=== PATIENT | male | born 1975 | race Caucasian/White ===

== ENCOUNTER → 2020-04-14 10:02 | Outpatient (BNVA) | payer OTHER, SELFPAY | PROVIDERS: PCP Nurse Practitioner Family; Visit Provider Orthopaedic Surgery | DX: S83.242A Other tear of medial meniscus, current injury, left knee, initial encounter (principal) | CPT/HCPCS: 99202 ==

== ENCOUNTER 2020-04-22 08:31 | Outpatient (REF) | payer OTHER, SELFPAY ==
--- NOTE | 2020-04-22 08:36 | MR_ITS ---
EXAMINATION: MR KNEE WITHOUT CONTRAST, LEFT CLINICAL INFORMATION: Tear medial meniscus, injury. COMPARISON: X-ray of left knee 01/2012. TECHNIQUE: MRI of the knee without contrast was performed using routine sequences on a high-field scanner. FINDINGS: MENISCI: Medial Meniscus: Intact. Lateral Meniscus: Intact. LIGAMENTS: Cruciate: Intact. Collateral: MCL: There is mild thickening and abnormal signal involving the proximal portion of ligament extending from the femoral attachment to the joint line indicative of a low-grade partial tear. EXTENSOR MECHANISM: Intact. ARTICULAR CARTILAGE/BONE: Patellofemoral Compartment: Normal. Medial Compartment: Normal. Lateral Compartment: There is a nondepressed/minimally depressed subchondral/osteochondral impaction fracture involving the posterior rim of the lateral plateau. See sagittal image 9 series 3. The fracture measures approximately 5 mm AP and 1.5 cm transverse. There is surrounding edema. JOINT FLUID AND BURSAE: Normal. MR/MR knee LT wo con IMPRESSION: Partial tear of the proximal medial collateral ligament likely acute or subacute. Minimally depressed/nondepressed subchondral/osteochondral impaction fracture involving the posterior rim of the lateral plateau.
== END 2020-04-22 08:32 | disposition home or self-care (01) ==
LOC: HO.MRI 08:31
PROVIDERS: PCP Nurse Practitioner Family; Visit Provider Orthopaedic Surgery
DX: S83.242A Other tear of medial meniscus, current injury, left knee, initial encounter (principal)
CPT/HCPCS: 73721

== ENCOUNTER → 2020-04-29 13:53 | Outpatient (BNVA) | payer OTHER, SELFPAY | PROVIDERS: PCP Nurse Practitioner Family; Visit Provider Orthopaedic Surgery | DX: M25.562 Pain in left knee (principal) | CPT/HCPCS: 20610; 99212; J1040 ==

== ENCOUNTER → 2020-06-22 15:31 | Outpatient (BNVA) | payer OTHER, SELFPAY | PROVIDERS: PCP Nurse Practitioner Family; Visit Provider Internal Medicine Cardiovascular Disease | DX: I25.5 Ischemic cardiomyopathy (principal); R07.9 Chest pain, unspecified; R06.00 Dyspnea, unspecified | CPT/HCPCS: 93005; 99212 ==

== ENCOUNTER → 2020-06-26 13:10 | Outpatient (REF) | payer OTHER, SELFPAY ==
--- NOTE | 2020-06-26 13:13 | CA_ITS ---
Transthoracic Echocardiogram Patient (Last, First, Middle): Chaz Hartmann C Gender: Male Date of : 1975 Age: 45 Procedure Date: 06/26/2020 Procedure Type: Transthoracic Echocardiogram Location: OP Height: 170.18 cm Weight: 100.7 kg BSA: 2.11 m2 Heart Rate: bpm BP: 136 / 80 mmHg Manager [employer]: Referring MD: Francisco Frederick MD Symptoms: I25.5 - Ischemic cardiomyopathy Study Quality: Technically Difficult ECG Rhythm: Sinus Conclusions: - The left ventricular systolic function is moderately decreased. The visually estimated ejection fraction is between 30-35%. - The apical inferior, apical septum, and mid anteroseptal segments are akinetic. 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 - No obvious valvular pathology seen on this study. Findings Procedure Information Contrast agent, definity, is being given per protocol without apparent complications. Left Ventricle Normal left ventricular cavity size. There is mildly increased left ventricular wall thickness. The left ventricular systolic function is moderately decreased. The visually estimated ejection fraction is between 30 35%. There is evidence of regional wall motion abnormalities. Diastolic function is normal for age. No thrombus noted. Wall Motion Rest Echo Findings The apical inferior, apical septum, and mid anteroseptal segments are akinetic. 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 Right Ventricle Mildly increased right ventricular cavity size. There is normal right ventricular systolic function. Atria The left atrium is mildly dilated. The right atrium is normal in size. Aortic Valve There is a normal trileaflet aortic valve. There is no aortic valve stenosis. There is no aortic valve regurgitation. Mitral Valve The mitral valve appears normal. There is trace mitral valve regurgitation. There is no mitral valve stenosis. Pulmonic Valve The pulmonic valve was not well visualized. Tricuspid Valve Normal tricuspid valve structure. There is trace tricuspid valve regurgitation. The pulmonary artery systolic pressure is normal. Great Vessels The aortic annulus, sinuses of valsalva, and asc aorta are normal in size. Venous The inferior vena cava is mildly dilated and collapses greater than 50% with inspiration. Pericardium/Pleural There is no evidence of pericardial effusion. Prior Study Comparison Changes noted compared to prior study dated: 07/24/2018. See comments on apex. Recommendations, Care & Conclusions No obvious valvular pathology seen on this study. Measurements 2D Linear Measurements IVSd: 1.34 0.6-0.9/0.6-1.0 cm LVIDd: 5.08 3.9-5.3/4.2-5.9 cm LVIDd Index: 2.41 2.4-3.2/2.2-3.1 cm/m2 LVIDs: 4.16 2.0-3.6 cm LVPWd: 1.31 0.7-1.1 cm Ao Root: 3.50 2.1-3.5 cm LA Diam: 4.20 2.7-3.8/3.0-4.0 cm LAIDs Index: 1.99 1.5-2.3 cm/m2 LV Mass: 344.03 67-162/88-224 g LV Mass Index: 163.05 43-95/49-115 g/m2 LVOT Diam: 2.40 3.0+(-)1.3 cm 2D Systolic Function EF 4C: 35.40 >55% EF 2C: 17.70 >55% Mitral Valve MV Pk E: 0.84 MV PK A: 0.62 MV Decel Time: 123.00 E/A: 1.40 E'Lateral: 12.50 E'Medial: 10.30 E/E' Med: 8.20 E/E' Lat: 6.80 PHT: 36.00 MVA PHT: 6.11 Decel [place]: 6.85 Aortic Valve AoV Pk Jameel: 1.25 AoV Mn Jameel: 0.96 AoV VTI: 0.32 AoV Pk Grad: 6.00 Aov Mn Grad: 4.00 JOLYNN Cont.VTI: 2.85 LVOT LVOT Pk Jameel: 0.88 LVOT Mn Jameel: 0.66 LVOT VTI: 0.20 LVOT Pk Grad: 3.00 LVOT Mn Grad: 2.00 LVOT Diam: 2.40 LVOT Area: 4.52 Diastolic Function MV Pk E: 0.84 MV Pk A: 0.62 E/A: 1.40 E'Medial: 10.30 E/E' Med: 8.20 E' Laterial: 12.50 E/E' Lat: 6.80 Tricuspid Valve TR Pk Jameel: 1.93 TR Pk Grad: 15.00 RA Press: 8.00 RVSP: 23.00 Great Vessels Aorta Ao Root-2D: 3.50 2.0-3.7 cm Ao Asc: 3.10 2.1-3.4 cm Pulmonary Valve PV Pk Jameel: 1.18 Peak PV Grad: 6.00 Updated in Other Vendor System with Status of Final Ajay Wiseman MD electronically signed on 06/28/2020 9:38:35 AM with status of Final
== END ==
LOC: HO.CARD 13:10
PROVIDERS: Visit Provider Internal Medicine Cardiovascular Disease
DX: I25.5 Ischemic cardiomyopathy (principal)
CPT/HCPCS: 93306; Q9957

== ENCOUNTER 2020-06-30 11:25 | Outpatient (REF) | payer OTHER, SELFPAY ==
[2020-06-30 13:20] LABS: Prothrombin Time 12.2 SEC (10.8-13.0)
[2020-06-30 13:24] LABS: Hematocrit 42.1 % (42-52); Hemoglobin 14.5 g/dl (14.0-18.0); Mean Corpuscular HGB Conc 34.4 g/dl (31.0-36.0); Mean Corpuscular Volume 92.9 fL (80-98); Platelet Count 227 X10*3/uL (160-400); Red Blood Count 4.53 X10*6/uL (4.60-5.80); Red Cell Distribution Width 12.6 % (11.0-16.0); White Blood Count 6.9 X10*3/uL (4.8-10.8)
[2020-06-30 14:29] LABS: Anion Gap 12 (12-20); Blood Urea Nitrogen 12 mg/dL (9-16); Carbon Dioxide 27 mmol/L (22-29); Chloride 107 mmol/L (96-108); Estimated Glomerular Filt Rate > 60; Glucose Random 86 mg/dL (60-115); Potassium 4.6 mmol/L (3.3-5.1); Sodium 141 mmol/L (135-145)
== END 2020-06-30 11:26 | disposition home or self-care (01) ==
LOC: HO.LAB 11:25
PROVIDERS: Visit Provider Internal Medicine Cardiovascular Disease
DX: R07.9 Chest pain, unspecified (principal)
CPT/HCPCS: 36415; 80048; 85027; 85610

== ENCOUNTER → 2020-07-22 14:16 | Outpatient (BNVA) | payer OTHER, SELFPAY | PROVIDERS: Visit Provider Internal Medicine Cardiovascular Disease | DX: I25.5 Ischemic cardiomyopathy (principal); R06.00 Dyspnea, unspecified | CPT/HCPCS: 99212 ==

== ENCOUNTER 2020-09-10 07:22 | Day surgery (SDC) | payer OTHER, SELFPAY ==
[2020-09-02 14:58] LABS: MANUAL DIFF FLAG NO
[2020-09-02 15:04] LABS: Basophils Percent Auto 0.6 % (0-2); Eosinophils Absolute Auto 0.2 X10*3/uL (0.0-0.4); Eosinophils Percent Auto 2.7 % (0-4); Hematocrit 40.2 % (42-52); Hemoglobin 13.8 g/dl (14.0-18.0); Imm Gran Abs Auto 0.02 X10*3/uL (0.00-0.03); Imm Gran Pct Auto 0.3 % (0.0-0.4); Lymphocytes Absolute Auto 2.5 X10*3/uL (1.2-4.9); Lymphocytes Percent Auto 36.1 % (20-40); Mean Corpuscular HGB Conc 34.3 g/dl (31.0-36.0); Mean Corpuscular Hemoglobin 32.3 pg (27.0-33.0); Mean Corpuscular Volume 94.1 fL (80-98); Mean Platelet Volume 10.2 fL (9.4-12.4); Monocytes Absolute Auto 0.6 X10*3/uL (0.1-1.2); Neutrophils Absolute Auto 3.7 X10*3/uL (2.0-8.3); Neutrophils Percent Auto 52.3 % (45-73); Platelet Count 246 X10*3/uL (160-400); Red Blood Count 4.27 X10*6/uL (4.60-5.80); Red Cell Distribution Width 12.9 % (11.0-16.0)
[2020-09-02 15:09] LABS: Prothrombin Time 11.6 SEC (10.8-13.0)
[2020-09-02 15:26] LABS: Anion Gap 13 (12-20); Blood Urea Nitrogen 14 mg/dL (9-16); Carbon Dioxide 24 mmol/L (22-29); Chloride 107 mmol/L (96-108); Estimated Glomerular Filt Rate > 60; Glucose Random 99 mg/dL (60-115); Potassium 4.6 mmol/L (3.3-5.1); Sodium 139 mmol/L (135-145)
[2020-09-02 18:56] VITALS: BMI 34.7
--- NOTE | 2020-09-09 11:03 | HO.ANESPROP2 ---
Documented by User: Ariana David 09/09/20 11:06 HPI - Anesthesia Eval Consult details Narrative: 45yo M for Insertion Cardiac Defibrillator PMFSH Active Problems Active Problems: All Active Problems (Updated 09/02/20 @ 19:00 by Jalyn Walton RN) Left knee pain (Acute) Ischemic cardiomyopathy (Acute) Chest pain (Acute) Dyspnea (Acute) Tobacco abuse (Acute) Past Medical History Medical History Anterior wall myocardial infarction CAD (coronary artery disease) HTN (hypertension) Ischemic cardiomyopathy NSVT (nonsustained ventricular tachycardia) Tobacco abuse Surgical History Surgical History H/O heart artery stent H/O hernia repair H/O knee surgery Social History Social History (Updated 06/22/20 @ 15:41 by VALENTINA Wynn) Alcohol intake: former Smoking Status: Current every day smoker Cigarettes Per Day: 10 Years Smoked: 30 Smoked in Last 30 Days: Yes Patient Interested in Nicotine Replacement: Yes (currently on) Use of substances other than those prescribed or required for medical reasons: No Are you DNR?: No Advance Directives: Yes Advance Directives Information Provided: Yes Advance Directives on File: No Advance Directives Date on File: 05/26/17 Current occupational status: employed Current occupation: [employer] - [employer] Allergies Allergy/AdvReac Type Severity Reaction Status Date / Time No Known Allergies Allergy Verified 09/10/20 07:47 Home Medications Medication Instructions Recorded Confirmed Last Taken Type aspirin 81 mg tablet,delayed 81 mg PO DAILY 04/14/20 09/02/20 Unknown History release methadone 10 mg/5 mL oral solution 10 mg PO DAILY 06/22/20 09/02/20 Unknown History Exam Exam Date and Time: September 09, 2020 1103 Height,Weight and Vital Signs: Height 5 ft 7 in Weight 100.698 kg Pertinent Lab Results Pertinent Lab Results: Laboratory Tests 09/02/20 09/02/20 09/02/20 14:23 14:23 14:23 WBC 7.0 RBC 4.27 L Hgb 13.8 L Hct 40.2 L MCV 94.1 MCH 32.3 MCHC 34.3 RDW 12.9 Plt Count 246 MPV 10.2 Immature Gran % (Auto) 0.3 Neut % (Auto) 52.3 Lymph % (Auto) 36.1 [place] % (Auto) 8.0 Eos % (Auto) 2.7 Baso % (Auto) 0.6 Lymph # (Auto) 2.5 [place] # (Auto) 0.6 Eos # (Auto) 0.2 Baso # (Auto) 0.0 Abs Immat Gran (auto) 0.02 Absolute Neuts (auto) 3.7 Absolute Nucleated RBC 0.000 Nucleated RBC % (auto) 0.0 PT 11.6 INR 1.0 Sodium 139 Potassium 4.6 Chloride 107 Carbon Dioxide 24 Anion Gap 13 BUN 14 Creatinine 0.79 Estim Creat Clear Calc TNP Estimated GFR > 60 Random Glucose 99 Calcium 9.0 Narrative Narrative: ECHO 06/2020 Conclusions: - The left ventricular systolic function is moderately decreased. The visually estimated ejection fraction is between 30-35%. - The apical inferior, apical septum, and mid anteroseptal segments are akinetic. 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 - No obvious valvular pathology seen on this study. EKG 06/2020 Normal sinus rhythm 97 beats per minute, anteroseptal infarct (old), normal axis, QTC 436 milliseconds Cath 06/2020 diagnostic cardiac catheterization which showed patent stent in the left anterior descending artery and no other significant disease involving the left circumflex or right coronary artery. Assessment and Plan Assessment Anesthesia Assessment: Chart Reviewed Documented by User: Oumar Christopher MD 09/10/20 07:51 [facility] Past Medical History Medical History Anterior wall myocardial infarction CAD (coronary artery disease) HTN (hypertension) Ischemic cardiomyopathy NSVT (nonsustained ventricular tachycardia) Tobacco abuse Surgical History Surgical History H/O heart artery stent H/O hernia repair H/O knee surgery Social History Social History (Updated 06/22/20 @ 15:41 by CYNTHIA Wynn Alcohol intake: former Smoking Status: Current every day smoker Cigarettes Per Day: 10 Years Smoked: 30 Smoked in Last 30 Days: Yes Patient Interested in Nicotine Replacement: Yes (currently on) Use of substances other than those prescribed or required for medical reasons: No Are you DNR?: No Advance Directives: Yes Advance Directives Information Provided: Yes Advance Directives on File: No Advance Directives Date on File: 05/26/17 Current occupational status: employed Current occupation: [employer] - Right [employer] Meds Allergies Allergy/AdvReac Type Severity Reaction Status Date / Time No Known Allergies Allergy Verified 09/10/20 07:47 Home Medications Medication Instructions Recorded Confirmed Last Taken Type aspirin 81 mg tablet,delayed 81 mg PO DAILY 04/14/20 09/02/20 Unknown History release methadone 10 mg/5 mL oral solution 10 mg PO DAILY 06/22/20 09/02/20 Unknown History Exam Airway Mallampati Class: I TM Dist: >3cm Neck ROM: Full Loose/Missing/Broken Teeth: No Lungs: NL Assessment and Plan Assessment Anesthesia Assessment: Anesthesia Plan Discussed and Chart Reviewed Final Anesthetic Review NPO: Yes ASA Class: III Final Preanesthetic Review: No Changes in Pt Med Stat, Meds/Allgs Chart Reviewed, Consent Obtained/Reviewed and Anes Risks/Benef Reviewed Patient Risk: High Procedure Risk: Intermediate Anesthetic Plan Anesthetic Plan: MAC: Disposition: Standard PACU
[2020-09-10] VITALS (12 sets, daily range): BP systolic 96–132; BP diastolic 49–86; PULSE 54–71; RESP 16–20; TEMP 36.3–37; O2SAT 91–99
--- NOTE | ~2020-09-10 | FL_ITS ---
EXAMINATION: XR FLUOROSCOPY WITH IMAGES CLINICAL INFORMATION: Defibrillator. COMPARISON: CTA chest dated 01/31/2018 TECHNIQUE: Fluoroscopy performed by Dr. Almazan Instrum. Fluoroscopy time: 15.2 minutes DAP: 72.9 mGy-cm2 Images: 56 FINDINGS: Intraoperative fluoroscopic radiographs demonstrate interval placement of a left-sided AICD. FL/FL guidance in OR IMPRESSION: Intraoperative fluoroscopic radiographs.
--- NOTE | ~2020-09-10 | XR_ITS ---
EXAMINATION: XR CHEST CLINICAL INFORMATION: Post ICD COMPARISON: 09/10/2020 TECHNIQUE: Frontal view of the chest was obtained. FINDINGS: Left-sided AICD lead tip overlies the right ventricle. Lung volumes are symmetric. No focal consolidation is seen. No evidence of pneumothorax, pleural effusion, or pulmonary edema. The cardiomediastinal contour is unremarkable. No acute osseous findings are seen. XR/XR chest 1V IMPRESSION: No acute cardiopulmonary findings.
--- NOTE | ~2020-09-10 | XR_ITS ---
EXAMINATION: XR CHEST CLINICAL INFORMATION: Rule out pneumothorax after ICD COMPARISON: Chest 01/01/2014 TECHNIQUE: Frontal view of the chest was obtained. FINDINGS: The lungs are well-expanded and clear. The heart size and pulmonary vascularity is normal. There is solitary new pacer electrode in the right ventricle. There is no pneumothorax. No gross bony abnormality seen. XR/XR chest 1V IMPRESSION: Unremarkable chest exam. There is a new right pacer electrode with its tip in right ventricle.
[2020-09-10] MEDS: Lactated Ringers 1,000 ML 50 ML IV (08:20)
--- NOTE | 2020-09-10 12:21 | PM.OP ---
Brief Operative Note Date of Service: 09/10/20 Pre-op diagnosis: Ischemic cardiomyopathy with EF 30-35%, class III HF Post-op diagnosis: same Procedure: single chamber ICD implanation, venogram Implants: [employer] ICD Surgeon: Jose Bhatia MD Estimated blood loss (mL): 50 Condition: stable Disposition: PACU
--- NOTE | 2020-09-10 12:26 | P.OP_ITS ---
Operative Note Operative Note Date of Service: 09/10/20 Narrative: Narrative: Procedure: Single chamber ICD for primary prevention, venogram Indication: ischemic cardiomyopathy with systolic heart failure and EF 30-35%, class III HF Procedure The risks, benefits, complications, alternatives and expected outcomes were discussed with the patient. Patient was prepped and draped in the usual sterile fashion. After the antibiotic was infused, lidocaine was infiltrated medial to the deltopectoral groove. An incision was made. The incision was extended to the prepectoral fascia using blunt dissection. I attempted axillary access but given unable to get access, a venogram was performed that confirmed the axillary vein was slightly higher and access was obtained. The lead was positioned in the RV. I noted the high or mid septum had low R waves of 2-3 mV. An apical septal position was finally obtained with optimal numbers. Appropriate sensing and thresholds were obtained. No diaphragmatic pacing occurred at high outputs. The lead was sutured to the muscle using 3 ethibond ties. Lead measurements were rechecked. A left prepectoral pocket was fashioned. The lead was attached to the generator. The system was placed in the pocket. The ICD was checked under fluoroscopy with adrquate slack noted noted. The pin of the lead was beyond the set screws. Hemostasis was verified. The pocket was closed with 3 layers. Steristrips and tegaderm were applied [employer] Device: ICD [place] VR [id number] RV lead: Durata 7122Q/65 cm Pacing impedance 430 ohms HV impedance 82 ohms Threshold 1.25 V at 0.4 ms R waves >12 mV Programmed VVI 40 BPM VF therapy >200 BPM ATP during charging, 36J, 40Jx5 Plan CXR today and tomorrow to r/o pneumothorax Ancef x 2 doses No HSQ or lovenox Ok to give home meds including aspirin, plavix, methadone Device company will interrogate device tomorrow and cardiology will see patient before discharge Followup on September 29 at 10:20 AM for wound check at [address] [place] [address] at [facility] Jose Bhatia [facility] Electrophysiology Attending DC instructions This can be copied into his DC instructions [facility] Dr. Jose Bhatia Pacemaker/ICD Instructions Site Care: Leave dressing on for 5 days. Do not shower or get the area wet for 5 days. Once you remove the dressing, there will be steri-strips in place. Do not peel off, they will fall off. Hand washing is a must when caring for your incision to prevent infections. Avoid touching your incision or using lotions, creams, or ointments until it is healed (2-4 weeks). Limit the movement of your arm on the same side as the pacemaker but do not stop moving it. Avoid stretching that arm over your head or shoulder-level or lift or carry anything heavier than 5 pounds with the left arm for 6 weeks Avoid golfing, swimming, tennis, bowling, shoveling snow or mowing the lawn for 6 weeks Follow-up instructions: If you do not already have a scheduled follow-up appointment, please call [phone] for the [place] office or [phone] for the [place] office Please keep the identification card for the device with you, it will be useful when you go through security during flights. Please plug in your home monitor and leave it at your bedside. Call device company if you need assistance plugging in the monitor. Please tell all your healthcare providers you have a pacemaker, especially before procedures or before a MRI. Call your doctor if you have any redness, swelling, pus from incision site, fever of 101 degrees. If you have any bleeding from the incision site, lie down and put pressure on the incision site for 30 minutes. If this does not resolve, please get transportation to the closest hospital but do not drive yourself
--- NOTE | 2020-09-10 13:34 | PM.IMHP ---
History of Present Illness Date of Service: 09/10/20 Chief Complaint: s/p ICD for ischemic CMP With a past medical history of anterior wall AL in the past and subsequent ischemic cardiomyopathy with a recent echocardiogram showing EF of 30-35% who presents to [facility] for scheduled ICD placement. He underwent a successful ICD placement and now will be observed overnight to ensure stability with cardiology follow-up tomorrow a.m. and device interrogation as well as a repeat chest x-ray to rule out any pneumothorax. Patient seen and examined in the PACU postoperatively. He reports some minor discomfort at the surgical site, with no other complaints. Chest pain or shortness of breath. Of note he does endorse that he is on chronic methadone and has taken his of methadone this a.m. Review of Systems Review of Systems: General - denies fevers or chills, denies weakness or fatigue HEENT -denies blurred vision, denies headache, denies sore throat Cardiovascular - denies chest pain or palpitations, denies edema Respiratory - denies shortness of breath, coughing, wheezing Gastrointestinal - denies abdominal pain, nausea, vomiting, diarrhea - denies flank pain, denies dysuria, denies frequency or urgency Musculoskeletal - denies back pain, denies hip pain, denies knee pain, denies shoulder pain Neurological - denies any focal weakness or numbness Skin, denies any bruising or redness Psychiatric - denies any suicidal ideation, hallucinations, homicidal ideation Endocrinology - denies intolerance to hot / cold temperatures [facility] Medical History (Updated 09/10/20 @ 13:39 by Williams Richardson MD) Anterior wall myocardial infarction CAD (coronary artery disease) HTN (hypertension) Ischemic cardiomyopathy NSVT (nonsustained ventricular tachycardia) Tobacco abuse Surgical History H/O heart artery stent H/O hernia repair H/O knee surgery Social History (Updated 06/22/20 @ 15:41 by VALENTINA Wynn) Alcohol intake: former Smoking Status: Current every day smoker Cigarettes Per Day: 10 Years Smoked: 30 Smoked in Last 30 Days: Yes Patient Interested in Nicotine Replacement: Yes (currently on) Use of substances other than those prescribed or required for medical reasons: No Are you DNR?: No Advance Directives: Yes Advance Directives Information Provided: Yes Advance Directives on File: No Advance Directives Date on File: 05/26/17 Current occupational status: employed Current occupation: [employer] - Right [employer] Meds Allergies Allergy/AdvReac Type Severity Reaction Status Date / Time No Known Allergies Allergy Verified 09/10/20 07:47 Active Medications: Current Medications Generic Name Dose Route Start Last Admin Trade Name Freq PRN Reason Stop Dose Admin Acetaminophen 650 mg 09/10/20 08:19 Acetaminophen 325 Mg Tablet PO ONCE PRN Pain, Mild (Pain Scale 1-3) Albuterol Sulfate 2.5 mg 09/10/20 07:40 Albuterol Sulfate (0.083%) 2.5 Mg/3 Ml Vial.Neb INHALE ONCE PRN Shortness of Breath/Wheezing Hydromorphone HCl 0.25 mg 09/10/20 08:19 Hydromorphone Hcl 0.5 Mg/0.5 Ml Syringe IVPUSH Q5M PRN Pain, Severe (Pain Scale 7-10) Lactated Ringer's 1,000 mls @ 50 mls/hr 09/10/20 07:45 09/10/20 08:20 Lr IV 50 mls/hr .Q20H SHARMAINE Administration Cefazolin Sodium/Dextrose 2 gm in 50 mls @ 100 mls/hr 09/10/20 17:00 Ancef IV 09/11/20 16:59 Q8H SHARMAINE Ondansetron HCl 4 mg 09/10/20 08:19 Ondansetron Hcl 4 Mg/2 Ml Vial IVPUSH ONCE PRN Nausea and Vomiting Oxycodone HCl 5 mg 09/10/20 08:19 Oxycodone Hcl Immed Release 5 Mg Tablet PO ONCE PRN Pain, Severe (Pain Scale 7-10) Sodium Chloride 3 ml 09/10/20 16:00 0.9 % Sodium Chloride Flush 3 Ml Syringe IVFLUSH [facility] Sodium Chloride 3 ml 09/10/20 16:00 0.9 % Sodium Chloride Flush 3 Ml Syringe IVFLUSH [facility] Home Medications Medication Instructions Recorded Confirmed Last Taken Type aspirin 81 mg tablet,delayed 81 mg PO DAILY 04/14/20 09/02/20 09/09/20 22:00 History release methadone 10 mg/5 mL oral solution 10 mg PO DAILY 06/22/20 09/02/20 09/10/20 05:30 History methadone [Methadone Intensol] 64 mg PO DAILY 09/10/20 09/10/20 09/10/20 History Physical Exam Vital Signs and Narrative: Vital Signs: Last Vital Signs Temp 97.4 F 09/10/20 11:57 Pulse 58 09/10/20 12:46 Resp 18 09/10/20 12:46 BP 96/49 L 09/10/20 12:46 Pulse Ox 98 09/10/20 12:46 Body Mass Index 34.7 Const: Other: General - denies fevers or chills, denies weakness or fatigue HEENT -denies blurred vision, denies headache, denies sore throat Cardiovascular - denies chest pain or palpitations, denies edema; left chest wall -- tegaderm in place Respiratory - denies shortness of breath, coughing, wheezing Gastrointestinal - denies abdominal pain, nausea, vomiting, diarrhea - denies flank pain, denies dysuria, denies frequency or urgency Musculoskeletal - denies back pain, denies hip pain, denies knee pain, denies shoulder pain Neurological - denies any focal weakness or numbness Skin, denies any bruising or redness Psychiatric - denies any suicidal ideation, hallucinations, homicidal ideation Endocrinology - denies intolerance to hot / cold temperatures Results Labs CBC and Chem 7: 09/02/20 14:23 09/02/20 14:23 Imaging Radiologist's Impressions: Impressions Chest X-Ray 09/10/20 12:20 IMPRESSION: Unremarkable chest exam. There is a new right pacer electrode with its tip in right ventricle. Assessment and Plan (1) Ischemic cardiomyopathy: Status: Acute This is a 45-year-old male who is being admitted to extended stay surgery after postop from a uncomplicated ICD placement for ischemic cardiomyopathy. 1. Status post ICD placement Repeat chest x-ray today without any signs of pneumothorax Will repeat chest x-ray tomorrow a.m. Surgical prophylaxis with Kefzol No pharmacological DVT pptx in light of recent procedure (per requested of performing physician) To be seen by Cardiology and interrogation company in the a.m. Above instructions discussed with manufacturing assistant Dr. Taylor 2. Ischemic cardiomyopathy with the EF of 30-35% 2a. status post anterior wall AL on asa/plavix/metoprolol/statin -- will continue 3. Chronic Opiate Dependence on methadone, will continue Full Code DVT pptx -- low risk, early ambulation
--- NOTE | 2020-09-10 16:10 | MHC.CM.PN ---
CM MET WITH PT WHO REPORTS HE LIVES AT HOME WITH HIS S/O AND 18 YO SON. HE REPORTS HE IS INDEPENDENT WITH ALL CARE AND MOBILITY AND HAS NO DME OR SERVICES. PT COMPLETED A NEW HCP TODAY NAMING HIS S/O, FAUSTINA SAUCEDA, HIS AGENT. PT CONFIRMS HIS PCP IS ALLEN SANCHEZ. CURRENT DC PLAN IS HOME WITH NO SERVICES PT WILL SELF ARRANGE TRANSPORT
[2020-09-10] MEDS: Sacubitril/Valsartan 24/26 1 TAB TABLET PO (19:58)
[2020-09-10] MEDS: Atorvastatin Calcium 80 MG TABLET PO (19:58)
[2020-09-10] MEDS: 0.9 % Sodium Chloride Flush 3 ML SYRINGE IVFLUSH (19:59)
[2020-09-11] MEDS: ceFAZolin Sodium/Dextrose,Iso 2 GM/50 ML PIGGYBACK IV ×2 (01:12→09:00)
[2020-09-11 04:00] VITALS: BP 110/57; PULSE 77; RESP 20; TEMP 36.9; O2SAT 96
[2020-09-11 07:29] VITALS: BP 115/68; PULSE 67; RESP 20; TEMP 36.8; O2SAT 95
[2020-09-11] MEDS: Nicotine 14 MG PATCH.TD24 TRANSDERMA (08:55)
[2020-09-11] MEDS: 0.9 % Sodium Chloride Flush 3 ML SYRINGE IVFLUSH (08:55)
[2020-09-11 08:57] VITALS: BP 132/75; PULSE 81
[2020-09-11] MEDS: Metoprolol Succinate ER 100 MG TAB.ER.24H PO (08:57)
[2020-09-11] MEDS: Clopidogrel Bisulfate 75 MG TABLET PO (08:58)
[2020-09-11] MEDS: Sacubitril/Valsartan 24/26 1 TAB TABLET PO (08:58)
[2020-09-11] MEDS: Aspirin Enteric Coated 81 MG TABLET.DR PO (08:58)
--- NOTE | 2020-09-11 09:38 | P.PNCA_ITS ---
Subjective Subjective Date of Service: 09/11/20 Principal diagnosis: Status post ICD Interval history: Patient has some discomfort at the site of the ICD. Overall otherwise doing well. No other cardiac symptoms. Chest x-ray is benign. ICD interrogation is okay Review of Systems Constitutional: Reports no additional constitutional complaints Cardiovascular: Reports no additional cardiovascular complaints Respiratory: Reports no additional respiratory complaints Gastrointestinal: Reports no additional gastrointestinal complaints Reports system reviewed and no additional complaints, except as documented Endocrine: Reports no additional endocrine complaints Physical Exam Vital Signs: Last Vital Signs Temp 98.2 F 09/11/20 07:29 Pulse 81 09/11/20 08:57 Resp 20 09/11/20 07:29 BP 132/75 09/11/20 08:57 Pulse Ox 95 09/11/20 07:29 Oxygen Flow Rate 97 09/10/20 16:08 Body Mass Index 34.7 Const General: cooperative, comfortable, no acute distress, well developed, alert and awake Nutritional Appearance: obese Orientation/consciousness: patient oriented x3 Neck Neck: Yes trachea midline, Yes supple and Yes no JVD Chest Chest palpation & inspection: other (ICD pocket with some puffiness but no significant hematoma. Mild tendernes) Resp Effort & Inspection: normal respiratory effort Auscultation: clear to auscultation bilaterally GI Auscultation: normal bowel sounds Skin General skin exam: no rashes or lesions noted Neuro General: patient oriented x3 Extrem General: Yes no clubbing, cyanosis or edema Psych Appearance: grossly normal Results Labs and Meds Result diagrams: 09/02/20 14:23 09/02/20 14:23 Imaging Radiologist's impression: Impressions Chest X-Ray 09/10/20 12:20 IMPRESSION: Unremarkable chest exam. There is a new right pacer electrode with its tip in right ventricle. Chest X-Ray 09/11/20 06:00 IMPRESSION: No acute cardiopulmonary findings. Progress Note: A&P Assessment and plan (1) ICD (implantable cardioverter-defibrillator) in place: Status: Acute Assessment and Plan: ICD in place, working well. Will follow up for wound check in 8 days and follow up in 6 weeks for device check. Patient was given instructions for wound care. (2) Ischemic cardiomyopathy: Status: Acute Assessment and Plan: Ischemic cardiomyopathy without symptoms. Continue current medications i ncluding Entresto and metoprolol. Continue dual antiplatelet therapy as before. He has no signs of congestive heart failure. Will follow up as outpatient. Thank you for allowing me to partake in his care Fall Risk Details Current Medications: Current Medications Generic Name Dose Route Start Last Admin Trade Name Raghav PRN Reason Stop Dose Admin Aspirin 81 mg 09/11/20 09:00 09/11/20 08:58 Aspirin Enteric Coated 81 Mg Tablet.Dr PO 81 mg DAILY SHARMAINE Administration Atorvastatin Calcium 80 mg 09/10/20 21:00 09/10/20 19:58 Atorvastatin Calcium 80 Mg Tablet PO 80 mg BEDTIME SHARMAINE Administration Clopidogrel Bisulfate 75 mg 09/11/20 09:00 09/11/20 08:58 Clopidogrel Bisulfate 75 Mg Tablet PO 75 mg DAILY SHARMAINE Administration Cefazolin Sodium/Dextrose 2 gm in 50 mls @ 100 mls/hr 09/10/20 17:00 09/11/20 09:00 Ancef IV 09/11/20 16:59 100 mls/hr Q8H SHARMAINE Administration Methadone HCl 60 mg 09/11/20 09:00 09/11/20 08:56 Methadone Hcl 1 Mg/0.1 Ml Oral.Conc PO 60 mg DAILY SHARMAINE Administration Metoprolol Succinate 100 mg 09/11/20 09:00 09/11/20 08:57 Metoprolol Succinate Er 100 Mg Tab.Er.24h PO 100 mg DAILY SHARMAINE Administration Protocol Nicotine 14 mg 09/11/20 09:00 09/11/20 08:55 Nicotine 14 Mg Patch.Td24 TRANSDERMA 14 mg DAILY SHARMAINE Administration Sacubitril/Valsartan 1 tab 09/10/20 21:00 09/11/20 08:58 Sacubitril/Valsartan 1 Tab Tablet PO 1 tab BID SHARMAINE Administration Protocol Sodium Chloride 3 ml 09/10/20 16:00 09/11/20 08:55 0.9 % Sodium Chloride Flush 3 Ml Syringe IVFLUSH 3 ml QSHIFT SHARMAINE Administration Time Spent With Patient Time: Total time spent is greater than 50% in coordination of care (as documented) at patient's floor/unit and/or counseling patient: Time with patient: 15 - 24 minutes Procedures Date of Service Date of Service: 09/11/20
--- NOTE | 2020-09-11 09:39 | P.DS_ITS ---
DS: Providers Provider Date of Service: 09/11/20 <KIEL Samuels - Last Filed: 09/11/20 10:35> 09/11/20 <Williams Richardson MD - Last Filed: 09/14/20 08:16> Primary care physician: TONG PackP- <KIEL Samuels - Last Filed: 09/11/20 10:35> Consults: 09/10/20 15:20 Consult to Cardiology Routine Consulting Provider: [facility] Reason for consultation: s/p ICD 09/10/20 16:15 Consult to Hospitalist Routine Consulting Provider: Williams Richardson Reason For Exam: admit <KIEL Samuels - Last Filed: 09/11/20 10:35> DS: Diagnosis Discharge Diagnosis (1) Ischemic cardiomyopathy: Status: Acute <KIEL Samuels - Last Filed: 09/11/20 10:35> DS: Medications Discharge Medications Home Medications: Home Medications Medication Instructions Recorded Confirmed aspirin 81 mg tablet,delayed 81 mg PO DAILY 04/14/20 09/02/20 release methadone [Methadone Intensol] 64 mg PO DAILY 09/10/20 09/10/20 Previous Rx's Medication Instructions Recorded atorvastatin 80 mg tablet 80 mg PO BEDTIME 90 Days #90 tab 04/08/20 clopidogrel 75 mg tablet 75 mg PO DAILY 90 Days #90 tab 06/23/20 metoprolol succinate 100 mg 100 mg PO DAILY 90 Days #90 tab 06/23/20 tablet,extended release 24 hr sacubitril 24 mg-valsartan 26 mg 1 tab PO BID #30 tab 07/22/20 tablet nicotine 14 mg/24 hr daily 1 patch TRANSDERMAL DAILY #28 ea 07/23/20 transdermal patch <KIEL Samuels - Last Filed: 09/11/20 10:35> DS: Summary Hospital Course Hospital Course: This is a 45 year old male with a 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 for scheduled ICD placement. He underwent a successful ICD placement and now will be observed overnight to ensure stability with cardiology follow-up tomorrow a.m. and device interrogation as well as a repeat chest x-ray to rule out any pneumothorax. Repeat chest x-ray was performed and showed no evidence of pneumothorax. The device was interrogated and found to be working properly. He was evaluated by Cardiology and is stable for discharge home. Instructions for follow-up included in discharge. He should follow up with cardiology for scheduled appointment. Attending Attestation: Patient seen and examined independently and I was present during banda portion of E/M service. Agree with KIEL Wolf's history, physical, assessment, and plan. <KIEL Samuels - Last Filed: 09/11/20 10:35> Status at Discharge Functional status at discharge: independent ambulation <KIEL Samuels Last Filed: 09/11/20 10:35> Time Spent with Patient Time attestation: Total time spent providing and/or coordinating discharge services: <KIEL Samuels Last Filed: 09/11/20 10:35> Discharge coordination time: Greater than 30 minutes <KIEL Samuels - Last Filed: 09/11/20 10:35> Quality: Stroke Does the patient have a stroke diagnosis?: No <KIEL Samuels Last Filed: 09/11/20 10:35> Physical Exam Vital Signs: Vital Signs: Last Vital Signs Temp 98.2 F 09/11/20 07:29 Pulse 81 09/11/20 08:57 Resp 20 09/11/20 07:29 BP 132/75 09/11/20 08:57 Pulse Ox 95 09/11/20 07:29 Oxygen Flow Rate 97 09/10/20 16:08 Body Mass Index 34.7 <KIEL Samuels - Last Filed: 09/11/20 10:35> Const: Nutritional Appearance: well nourished <KIEL Samuels Last Filed: 09/11/20 10:35> Orientation/consciousness: patient oriented x3 <KIEL Samuels Last Filed: 09/11/20 10:35> HENMT: Head: Yes normocephalic and Yes atraumatic <KIEL Samuels Last Filed: 09/11/20 10:35> Eyes: Sclerae: sclerae normal <KIEL Samuels Last Filed: 09/11/20 10:35> Chest: Other: left anterior chest incision clean and intact, no erythema <KIEL Samuels - Last Filed: 09/11/20 10:35> Resp: Effort & Inspection: normal respiratory effort and no respiratory distress <KIEL Samuels - Last Filed: 09/11/20 10:35> Auscultation: clear to auscultation bilaterally <KIEL Samuels - Last Filed: 09/11/20 10:35> Cardio: Rate: regular rate <KIEL Samuels - Last Filed: 09/11/20 10:35> Rhythm: regular rhythm <KIEL Samuels - Last Filed: 09/11/20 10:35> GI: Palpation (GI): Soft to palpation and nontender <KIEL Samuels - Last Filed: 09/11/20 10:35> Neuro: General: patient oriented x3 <KIEL Samuels - Last Filed: 09/11/20 10:35> Cranial nerves: Yes CN's II-XII intact bilaterally and Yes Bilaterally intact EOM present <KIEL Samuels Last Filed: 09/11/20 10:35> Discharge Plan Discharge Patient Disposition: Home, Self-Care <KIEL Samuels - Last Filed: 09/11/20 10:35> Referrals: Jose Bhatia MD [Physician] - 1 Week Juan Cadet FNP- [Primary Care Provider] - 1 Week <KIEL Samuels - Last Filed: 09/11/20 10:35> Discharge Medications: Continued atorvastatin 80 mg tablet 80 mg PO BEDTIME 90 Days Qty: 90 RF: 3 metoprolol succinate 100 mg tablet extended release 24 hr 100 mg PO DAILY 90 Days Qty: 90 RF: 1 clopidogrel [Plavix] 75 mg tablet 75 mg PO DAILY 90 Days Qty: 90 RF: 1 methadone [Methadone Intensol] 10 mg/mL Concentrate 64 mg PO DAILY RF: 0 aspirin [Adult Aspirin Regimen] 81 mg tablet,delayed release (DR/EC) 81 mg PO DAILY RF: 0 Entresto 24-26 mg tablet 1 tab PO BID Qty: 30 RF: 3 nicotine 14 mg/24 hr patch 24 hour 1 patch transdermal DAILY Qty: 28 RF: 3 <KIEL Samuels - Last Filed: 09/11/20 10:35> Discharge Orders: Discharge Order (Routine); Ordered 09/11/20 Ordered By: Donna Flores <KIEL Samuels - Last Filed: 09/11/20 10:35> Activity Restrictions/Additional Instructions: Followup on September 29 at 10:20 AM for wound check at [address] [place] [address] at [facility] Wound instructions: [facility] Dr. Jose Bhatia Pacemaker/ICD Instructions Site Care: Leave dressing on for 5 days. Do not shower or get the area wet for 5 days. Once you remove the dressing, there will be steri-strips in place. Do not peel off, they will fall off. Hand washing is a must when caring for your incision to prevent infections. Avoid touching your incision or using lotions, creams, or ointments until it is healed (2-4 weeks). Limit the movement of your arm on the same side as the pacemaker but do not stop moving it. Avoid stretching that arm over your head or shoulder-level or lift or carry anything heavier than 5 pounds with the left arm for 6 weeks Avoid golfing, swimming, tennis, bowling, shoveling snow or mowing the lawn for 6 weeks Follow-up instructions: If you do not already have a scheduled follow-up appointment, please call [phone] for the [place] office or [phone] for the [place] office Please keep the identification card for the device with you, it will be useful when you go through security during flights. Please plug in your home monitor and leave it at your bedside. Call device company if you need assistance plugging in the monitor. Please tell all your healthcare providers you have a pacemaker, especially before procedures or before a MRI. Call your doctor if you have any redness, swelling, pus from incision site, fever of 101 degrees. If you have any bleeding from the incision site, lie down and put pressure on the incision site for 30 minutes. If this does not resolve, please get transportation to the closest hospital but do not drive yourself <KIEL Samuels - Last Filed: 09/11/20 10:35> Discharge Date/Time: 09/11/20 11:31 <KIEL Samuels - Last Filed: 09/11/20 10:35>
--- NOTE | 2020-09-11 09:39 | HO.POSTANES ---
Post Anesthesia Evaluation Post Anesthesia Evaluation Vital Signs: Vital Signs Temp Pulse Resp BP Pulse Ox 09/11/20 08:57 81 132/75 09/11/20 07:29 98.2 F 67 20 115/68 95 09/11/20 04:00 98.4 F 77 20 110/57 L 96 09/10/20 23:39 98.6 F 62 18 132/86 96 Anesthesia: General Mental Status: Awake Pain Control: Satisfactory Nausea/Vomiting: None Hydration: Adequate Anesthesia-Related Issues: No Anes. Related Issues
--- NOTE | 2020-09-11 11:16 | MHC.CM.PN ---
Patient has been medically cleared for dc to home today, no services.
--- NOTE | 2020-09-11 11:33 | PC.NURSE ---
IV AND MONITOR REMOVED. REVIEWED DISCHARGE INSTRUCTIONS WITH PATIENT AND FAXED FORMS AT PTS REQUEST TO CLINIC. DENIES PAIN. BROUGHT DOWN TO ENTRANCE IN WHEELCHAIR BY STAFF.
== END 2020-09-11 11:31 | disposition home or self-care (01) ==
LOC: HO.SSS 12:37 → HO.IMC 14:50
PROVIDERS: Internal Medicine Cardiovascular Disease; PCP Nurse Practitioner Family; Visit Provider Family Medicine
PROC: (CPT 33249; principal; 2020-09-10 09:00)
DX: I11.0 Hypertensive heart disease with heart failure (principal); I50.20 Unspecified systolic (congestive) heart failure; I25.5 Ischemic cardiomyopathy; I25.10 Atherosclerotic heart disease of native coronary artery without angina pectoris; Z98.61 Coronary angioplasty status; Z79.02 Long term (current) use of antithrombotics/antiplatelets; Z79.899 Other long term (current) drug therapy; Z79.82 Long term (current) use of aspirin; F17.210 Nicotine dependence, cigarettes, uncomplicated
CPT/HCPCS: 33249; 36415; 71045; 80048; 85025; 85610; C1722; C1777; J0690; J2250; J3010; J3370; Q9967

== ENCOUNTER → 2020-09-18 12:05 | Outpatient (BNVA) | payer OTHER, SELFPAY | PROVIDERS: PCP Nurse Practitioner Family; Visit Provider Nurse Practitioner Family | DX: Z51.89 Encounter for other specified aftercare (principal); I25.5 Ischemic cardiomyopathy; I21.09 ST elevation (STEMI) myocardial infarction involving other coronary artery of anterior wall; I10 Essential (primary) hypertension; Z95.810 Presence of automatic (implantable) cardiac defibrillator; Z79.899 Other long term (current) drug therapy | CPT/HCPCS: 99212 ==

== ENCOUNTER → 2020-09-24 08:02 | Outpatient (BNVA) | payer OTHER, SELFPAY | PROVIDERS: PCP Nurse Practitioner Family; Referring Provider Nurse Practitioner Family; Visit Provider Nurse Practitioner Family | DX: Z51.89 Encounter for other specified aftercare (principal); Z95.810 Presence of automatic (implantable) cardiac defibrillator; I25.5 Ischemic cardiomyopathy; I21.09 ST elevation (STEMI) myocardial infarction involving other coronary artery of anterior wall; I10 Essential (primary) hypertension | CPT/HCPCS: 99212 ==

== ENCOUNTER → 2020-10-27 14:22 | Outpatient (BNVA) | payer OTHER, SELFPAY | PROVIDERS: PCP Nurse Practitioner Family; Visit Provider Nurse Practitioner Family | DX: Z45.02 Encounter for adjustment and management of automatic implantable cardiac defibrillator (principal); I25.5 Ischemic cardiomyopathy; I21.09 ST elevation (STEMI) myocardial infarction involving other coronary artery of anterior wall; I10 Essential (primary) hypertension | CPT/HCPCS: 99212 ==

== ENCOUNTER → 2020-11-03 15:11 | Outpatient (REF) | payer OTHER, SELFPAY | LOC: HO.SL 15:11 | PROVIDERS: PCP Nurse Practitioner Family; Visit Provider Nurse Practitioner Family | DX: G47.10 Hypersomnia, unspecified (principal); R40.0 Somnolence | CPT/HCPCS: 95806 ==

== ENCOUNTER 2020-12-02 15:03 | Outpatient (REF) | payer OTHER, SELFPAY ==
[2020-12-02 17:23] LABS: Hematocrit 38.7 % (42-52); Hemoglobin 13.4 g/dl (14.0-18.0); Mean Corpuscular HGB Conc 34.6 g/dl (31.0-36.0); Mean Corpuscular Hemoglobin 33.1 pg (27.0-33.0); Mean Corpuscular Volume 95.6 fL (80-98); Mean Platelet Volume 10.4 fL (9.4-12.4); Platelet Count 226 X10*3/uL (160-400); Red Blood Count 4.05 X10*6/uL (4.60-5.80); Red Cell Distribution Width 12.9 % (11.0-16.0)
[2020-12-02 17:31] LABS: Anion Gap 11 (12-20); Blood Urea Nitrogen 11 mg/dL (9-16); Calcium 9.2 mg/dL (8.4-10.2); Carbon Dioxide 25 mmol/L (22-29); Chloride 109 mmol/L (96-108); Estimated Glomerular Filt Rate > 60; Glucose Random 96 mg/dL (60-115); Potassium 4.4 mmol/L (3.3-5.1); Sodium 141 mmol/L (135-145)
[2020-12-02 17:53] LABS: TSH reflex Free T4 2.05 uIU/mL (0.32-4.0)
== END 2020-12-02 15:04 | disposition home or self-care (01) ==
LOC: HO.LAB 15:03
PROVIDERS: Absent Provider Internal Medicine Cardiovascular Disease; PCP Nurse Practitioner Family; Referring Provider Nurse Practitioner Family; Visit Provider Nurse Practitioner Family
DX: R42 Dizziness and giddiness (principal); I25.5 Ischemic cardiomyopathy; I10 Essential (primary) hypertension; I25.2 Old myocardial infarction; Z79.02 Long term (current) use of antithrombotics/antiplatelets; Z79.82 Long term (current) use of aspirin; Z79.899 Other long term (current) drug therapy; Z95.810 Presence of automatic (implantable) cardiac defibrillator
CPT/HCPCS: 36415; 80048; 84443; 85027; 99212

== ENCOUNTER → 2020-12-03 09:56 | Outpatient (BNVA) | payer OTHER, SELFPAY | PROVIDERS: PCP Nurse Practitioner Family; Visit Provider Internal Medicine | DX: G47.33 Obstructive sleep apnea (adult) (pediatric) (principal); E66.9 Obesity, unspecified; Z92.0 Personal history of contraception | CPT/HCPCS: 99202 ==

== ENCOUNTER 2020-12-30 09:02 | Emergency (ER) | payer OTHER, SELFPAY ==
--- NOTE | ~2020-12-30 | XR_ITS ---
EXAMINATION: XR CHEST CLINICAL INFORMATION: Chest pain COMPARISON: Previous chest x-ray most recent 09/11/2020 TECHNIQUE: Frontal view of the chest was obtained. FINDINGS: The cardiac and mediastinal contours are stable. There is a left subclavian single chamber pacemaker that appears unchanged. The lungs are clear. There is no pleural effusion or pneumothorax. Bony structures are unremarkable. XR/XR chest 1V IMPRESSION: No evidence for acute disease in the chest.
--- NOTE | ~2020-12-30 | CT_ITS ---
EXAMINATION: CT ANGIOGRAM OF THE CHEST WITH AND WITHOUT CONTRAST (CT PULMONARY ANGIOGRAM FOR PE) CLINICAL INFORMATION: Reason for Exam Chest pain and elevated D-dimer. COMPARISON: Previous chest CTA January 2018 and chest x-ray from earlier the same day TECHNIQUE: Prior to contrast administration, noncontrast localization images were obtained. Subsequently, multidetector volumetric imaging was performed from the thoracic inlet to below the diaphragms following the administration of 71 mL Omnipaque 350 intravenous contrast. No contrast reaction reported Sagittal, coronal, and MIP oblique sagittal reformatted images were obtained on the CT workstation, uploaded to PACS, and reviewed. This CT examination was performed using dose optimization techniques as appropriate, variously including the following: *Automated exposure control *Adjustment of mA and/or kV according to patient size (this includes techniques or standardized protocols for targeted exams where dose is matched to indication/reason for exam; i.e. extremities or head) *Use of iterative reconstruction technique Total exam dose-length product 456 mGy-cm FINDINGS: QUALITY OF STUDY/CONTRAST BOLUS: Satisfactory. PULMONARY ARTERIES: No central or segmental pulmonary emboli. THORACIC AORTA: No aneurysm or dissection. LUNG: No focal consolidation, nodules or masses. PLEURA: No pleural effusion or pneumothorax. MEDIASTINUM: Normal heart size. There is a left subclavian single chamber pacemaker with tip projecting over the right ventricular apex. No pericardial effusion. No hilar or mediastinal lymphadenopathy. No evidence of septal bowing or right heart strain. CHEST WALL/AXILLA: No axillary or internal mammary lymphadenopathy. OSSEOUS STRUCTURES: No acute or suspicious osseous abnormality. UPPER ABDOMEN: Unremarkable. No reflux of contrast into the hepatic veins to suggest elevated right heart pressures. CT/CT angio chest PE protocol IMPRESSION: No evidence of pulmonary embolism. VTE: negative
[2020-12-30 09:06] VITALS: BP 117/82; PULSE 79; RESP 18; TEMP 36.6; O2SAT 98; BMI 31.6
--- NOTE | 2020-12-30 09:15 | ECG_ITS ---
Test Reason : CP Blood Pressure : / mmHG Vent. Rate : 066 BPM Atrial Rate : 066 BPM P-R Int : 162 ms QRS Dur : 086 ms QT Int : 390 ms P-R-T Axes : 045 001 023 degrees QTc Int : 408 ms Normal sinus rhythm Septal infarct (cited on or before 20-JUL-2018) Abnormal ECG When compared with ECG of 12-MAR-2019 12:29, Questionable change in initial forces of Anterolateral leads Nonspecific T wave abnormality, improved in Inferior leads Nonspecific T wave abnormality, improved in Lateral leads QT has lengthened Referred By: Harinder Bustamante Electronically Signed By:AURORA OWENS
[2020-12-30 10:08] LABS: MANUAL DIFF FLAG NO
[2020-12-30 10:11] LABS: Basophils Percent Auto 0.5 % (0-2); Eosinophils Absolute Auto 0.2 X10*3/uL (0.0-0.4); Eosinophils Percent Auto 3.3 % (0-4); Hematocrit 40.2 % (42-52); Hemoglobin 13.5 g/dl (14.0-18.0); Imm Gran Abs Auto 0.02 X10*3/uL (0.00-0.03); Imm Gran Pct Auto 0.3 % (0.0-0.4); Lymphocytes Absolute Auto 1.5 X10*3/uL (1.2-4.9); Lymphocytes Percent Auto 25.4 % (20-40); Mean Corpuscular HGB Conc 33.6 g/dl (31.0-36.0); Mean Corpuscular Hemoglobin 31.9 pg (27.0-33.0); Mean Platelet Volume 10.1 fL (9.4-12.4); Monocytes Absolute Auto 0.5 X10*3/uL (0.1-1.2); Monocytes Percent Auto 8.5 % (2-11); Neutrophils Absolute Auto 3.7 X10*3/uL (2.0-8.3); Platelet Count 244 X10*3/uL (160-400); Red Blood Count 4.23 X10*6/uL (4.60-5.80); Red Cell Distribution Width 13.2 % (11.0-16.0)
--- NOTE | 2020-12-30 10:19 | ED.CHESTPAIN ---
HPI - Chest Pain General Chief Complaint: Chest Pain Stated Complaint: chest pain, HBP, hx of heart attack Time Seen by Provider: 12/30/20 09:46 Source: patient Mode of arrival: ambulatory Limitations: no limitations History of Present Illness HPI narrative: Chest pain for 3 days. 45-year-old male with coronary artery disease and hypertension, who was working on his boat felt like he pulled a muscle in chest, complaining of mid chest pain that is more with movement and taking deep breath, patient had heart attack in the past that required stent and placing defibrillator 3 years ago, patient due in a sitting that the chest pain is similar to when he had the heart attack there is no radiation of the pain, pain is worsening with movement, nothing improves the pain. No associated symptoms. Related Data Home Medications Medication Instructions Recorded Confirmed aspirin 81 mg tablet,delayed 81 mg PO DAILY 04/14/20 12/04/20 release (Adult Aspirin Regimen) methadone 10 mg/mL oral 61 mg PO DAILY ml 12/03/20 12/04/20 concentrate (Methadone Intensol) Previous Rx's Medication Instructions Recorded atorvastatin 80 mg tablet 80 mg PO BEDTIME 90 Days #90 tab 04/08/20 nicotine 14 mg/24 hr daily 1 patch TRANSDERMAL DAILY #28 ea 07/23/20 transdermal patch blood pressure monitor #1 ea 09/24/20 sacubitril 24 mg-valsartan 26 mg 1 tab PO BID #60 tab 11/16/20 tablet (Entresto) clopidogrel 75 mg tablet 75 mg PO DAILY 90 Days #90 tab 12/29/20 metoprolol succinate 100 mg 100 mg PO DAILY 90 Days #90 tab 12/29/20 tablet,extended release 24 hr Allergies Allergy/AdvReac Type Severity Reaction Status Date / Time No Known Allergies Allergy Verified 12/03/20 10:08 Review of Systems Review of Systems: All other systems are reviewed and are negative Constitutional: Reports as per HPI and Reports no additional constitutional complaints Eyes: Reports as per HPI and Reports no additional eye complaints Reports system reviewed and no additional complaints, except as documented Cardiovascular: Reports as per HPI and Reports no additional cardiovascular complaints Respiratory: Reports as per HPI and Reports no additional respiratory complaints Gastrointestinal: Reports as per HPI and Reports no additional gastrointestinal complaints Genitourinary: Reports no additional female genitourinary complaints Musculoskeletal: Reports no additional musculoskeletal complaints Skin/Breast: Reports system reviewed and no additional complaints, except as docu Psychiatric: Reports no additional psychiatric complaints Endocrine: Reports no additional endocrine complaints Hematologic/Lymphatic: Reports no additional hematologic/lymphatic complaints Allergic/Immunologic: Reports no additional allergic/immunologic complaints Reports system reviewed and no additional complaints, except as documented and Reports Abnormal speech present [facility] Past Medical History Medical History Anterior wall myocardial infarction CAD (coronary artery disease) HTN (hypertension) ICD (implantable cardioverter-defibrillator) in place Ischemic cardiomyopathy NSVT (nonsustained ventricular tachycardia) Obesity (BMI 30-39.9) Tobacco abuse Surgical History H/O heart artery stent H/O hernia repair H/O knee surgery Social History Social History Household Members: None Housing: House Do you presently have visiting nurse or other home services: No Unable to assess alcohol history related to: Unknown Alcohol intake: never Patient Tobacco Use Status: Current someday Tobacco user Cigarettes Per Day: 10 Years Smoked: 30 Use of substances other than those prescribed or required for medical reasons: No Advance Directives: Yes Advance Directives on File: Yes Advance Directives Date on File: 09/14/20 service: No Current occupational status: employed Current occupation: [employer] - Right Handed Physical Exam Vital Signs: Vital Signs: Last Vital Signs Temp 97.8 F 12/30/20 12:21 Pulse 61 12/30/20 14:10 Resp 18 12/30/20 14:10 BP 127/79 12/30/20 14:10 Pulse Ox 98 12/30/20 14:10 Body Mass Index 31.6 Vital signs have been reviewed as appeared to be correct. Blood pressure normal. Heart rate normal. Respiration rate normal. Temperature normal. Oxygen saturation normal. Appearance: Alert. Oriented X3. No acute distress. Head: Normal external exam. Normocephalic. Atraumatic. No Alvarado signs noted. No raccoon eyes noted Eyes: PERRLA. EOMI. Conjunctiva and sclera normal. Eyelids normal. ENT: TM's Normal. Pharynx normal. Uvula midline. Moist mucous membranes. No trismus noted. No drooling noted. No muffled voice noted. Neck: Normal inspection. Neck supple. FROM. No adenopathy. Thyroid Normal. No meningeal signs. No neck mass noted. CVS: Normal heart rate and rhythm. Heart sound normal. No murmurs noted. Pulses normal throughout. Respiratory: No respiratory distress. Painless inspiration. Breath sounds normal. No wheezes/rales/rhonchi noted. Chest nontender. No accessory muscle usage noted or decreased air movement noted. Abdomen: Soft and nontender. Bowel sounds normal in all 4 quadrants. No distention noted. No organomegaly noted. No visible injury noted. Back: No CVA tenderness. Full range of motion noted. Skin: Skin warm and dry. Normal skin color. Normal skin turgor. No rashes/lesions/lacerations noted. Extremities: No lower extremity edema. Extremities exhibit normal range of motion. Extremities nontender. Neuro: Oriented X 3. Cranial nerve exam: II-XII are grossly intact No motor deficit. No sensory deficit. Reflexes normal. Course Course Course Narrative: Assessment and plan. 45-year-old male came in for chest pain. 1. Patient with a history of MO/cardiac arrest, EKG/troponin high sensitive time to unremarkable for ACS syndrome. 2. Because the slight elevation of the D-dimer patient had a CT of the chest which showed no PE. 3. Patient's symptoms is likely secondary to a muscular pain of the chest. MDM - Chest Pain Lab Data Attestation: I reviewed the patient's lab results. Result diagrams: 12/30/20 10:12/30/20 10:01 Labs: Lab Results 12/30/20 12/30/20 12/30/20 Range/Units 10:01 10:01 10:01 WBC 6.0 (4.8-10.8) X10*3/uL RBC 4.23 L (4.60-5.80) X10*6/uL Hgb 13.5 L (14.0-18.0) g/dl Hct 40.2 L (42-52) % MCV 95.0 (80-98) fL MCH 31.9 (27.0-33.0) pg MCHC 33.6 (31.0-36.0) g/dl RDW 13.2 (11.0-16.0) % Plt Count 244 (160-400) X10*3/uL MPV 10.1 (9.4-12.4) fL Immature Gran % (Auto) 0.3 (0.0-0.4) % Neut % (Auto) 62.0 (45-73) % Lymph % (Auto) 25.4 (20-40) % Dickinson % (Auto) 8.5 (2-11) % Eos % (Auto) 3.3 (0-4) % Baso % (Auto) 0.5 (0-2) % Lymph # (Auto) 1.5 (1.2-4.9) X10*3/uL Dickinson # (Auto) 0.5 (0.1-1.2) X10*3/uL Eos # (Auto) 0.2 (0.0-0.4) X10*3/uL Baso # (Auto) 0.0 (0.0-0.2) X10*3/uL Abs Immat Gran (auto) 0.02 (0.00-0.03) X10*3/uL Absolute Neuts (auto) 3.7 (2.0-8.3) X10*3/uL Absolute Nucleated RBC 0.000 (0.0-0.012) X10*3/uL Nucleated RBC % (auto) 0.0 (0.0-0.2) /100WBC D-Dimer NG/ML Sodium 141 (135-145) mmol/L Potassium 4.6 (3.3-5.1) mmol/L Chloride 109 H (96-108) mmol/L Carbon Dioxide 27 (22-29) mmol/L Anion Gap 10 L (12-20) BUN 8 L (9-16) mg/dL Creatinine 0.86 (0.5-1.4) mg/dL Estim Creat Clear Calc 122.1 Estimated GFR > 60 Random Glucose 106 (60-115) mg/dL Calcium 9.2 (8.4-10.2) mg/dL Total Bilirubin 1.0 (0.0-1.0) mg/dL Direct Bilirubin 0.3 (0.0-0.5) mg/dL AST 27 (5-37) U/L ALT 38 (0-40) U/L Alkaline Phosphatase 85 (39-117) U/L Total Creatine Kinase (38-174) U/L Troponin I High Sens 6.4 (<3.5-35.0) ng/L B-Natriuretic Peptide (<100) pg/mL Total Protein 6.7 (6.5-8.0) g/dL Albumin 4.1 (3.5-5.0) g/dL Lipase 18 (8-78) U/L 12/30/20 12/30/20 12/30/20 Range/Units 10:01 12:19 12:19 WBC (4.8-10.8) X10*3/uL RBC (4.60-5.80) X10*6/uL Hgb (14.0-18.0) g/dl Hct (42-52) % MCV (80-98) fL MCH (27.0-33.0) pg MCHC (31.0-36.0) g/dl RDW (11.0-16.0) % Plt Count (160-400) X10*3/uL MPV (9.4-12.4) fL Immature Gran % (Auto) (0.0-0.4) % Neut % (Auto) (45-73) % Lymph % (Auto) (20-40) % Dickinson % (Auto) (2-11) % Eos % (Auto) (0-4) % Baso % (Auto) (0-2) % Lymph # (Auto) (1.2-4.9) X10*3/uL Dickinson # (Auto) (0.1-1.2) X10*3/uL Eos # (Auto) (0.0-0.4) X10*3/uL Baso # (Auto) (0.0-0.2) X10*3/uL Abs Immat Gran (auto) (0.00-0.03) X10*3/uL Absolute Neuts (auto) (2.0-8.3) X10*3/uL Absolute Nucleated RBC (0.0-0.012) X10*3/uL Nucleated RBC % (auto) (0.0-0.2) /100WBC D-Dimer 542 NG/ML Sodium (135-145) mmol/L Potassium (3.3-5.1) mmol/L Chloride (96-108) mmol/L Carbon Dioxide (22-29) mmol/L Anion Gap (12-20) BUN (9-16) mg/dL Creatinine (0.5-1.4) mg/dL Estim Creat Clear Calc Estimated GFR Random Glucose (60-115) mg/dL Calcium (8.4-10.2) mg/dL Total Bilirubin (0.0-1.0) mg/dL Direct Bilirubin (0.0-0.5) mg/dL AST (5-37) U/L ALT (0-40) U/L Alkaline Phosphatase (39-117) U/L Total Creatine Kinase 99 (38-174) U/L Troponin I High Sens (<3.5-35.0) ng/L B-Natriuretic Peptide 57 (<100) pg/mL Total Protein (6.5-8.0) g/dL Albumin (3.5-5.0) g/dL Lipase (8-78) U/L 12/30/20 Range/Units 12:19 WBC (4.8-10.8) X10*3/uL RBC (4.60-5.80) X10*6/uL Hgb (14.0-18.0) g/dl Hct (42-52) % MCV (80-98) fL MCH (27.0-33.0) pg MCHC (31.0-36.0) g/dl RDW (11.0-16.0) % Plt Count (160-400) X10*3/uL MPV (9.4-12.4) fL Immature Gran % (Auto) (0.0-0.4) % Neut % (Auto) (45-73) % Lymph % (Auto) (20-40) % Dickinson % (Auto) (2-11) % Eos % (Auto) (0-4) % Baso % (Auto) (0-2) % Lymph # (Auto) (1.2-4.9) X10*3/uL Dickinson # (Auto) (0.1-1.2) X10*3/uL Eos # (Auto) (0.0-0.4) X10*3/uL Baso # (Auto) (0.0-0.2) X10*3/uL Abs Immat Gran (auto) (0.00-0.03) X10*3/uL Absolute Neuts (auto) (2.0-8.3) X10*3/uL Absolute Nucleated RBC (0.0-0.012) X10*3/uL Nucleated RBC % (auto) (0.0-0.2) /100WBC D-Dimer NG/ML Sodium (135-145) mmol/L Potassium (3.3-5.1) mmol/L Chloride (96-108) mmol/L Carbon Dioxide (22-29) mmol/L Anion Gap (12-20) BUN (9-16) mg/dL Creatinine (0.5-1.4) mg/dL Estim Creat Clear Calc Estimated GFR Random Glucose (60-115) mg/dL Calcium (8.4-10.2) mg/dL Total Bilirubin (0.0-1.0) mg/dL Direct Bilirubin (0.0-0.5) mg/dL AST (5-37) U/L ALT (0-40) U/L Alkaline Phosphatase (39-117) U/L Total Creatine Kinase (38-174) U/L Troponin I High Sens 9.4 (<3.5-35.0) ng/L B-Natriuretic Peptide (<100) pg/mL Total Protein (6.5-8.0) g/dL Albumin (3.5-5.0) g/dL Lipase (8-78) U/L Imaging Data Chest x-ray: Radiologist's impression: No acute pathology. CT angiogram the chest: Radiologist's impression: No PE. ECG Data ECG #1: Interpretation: Normal sinus rhythm at 66 beats per minutes, normal intervals, diffuse T-wave flattening more pronounced in the C3 to V6. Discharge Plan Discharge Clinical Impression: Chest pain Qualifiers: Chest pain type: unspecified Qualified Code(s): R07.9 - Chest pain, unspecified Patient Disposition: Home, Self-Care Instructions: Chest Pain (ED) Prescriptions: No Action atorvastatin 80 mg tablet 80 mg PO BEDTIME 90 Days Qty: 90 RF: 3 sacubitril-valsartan [Entresto] 24-26 mg tablet 1 tab PO BID Qty: 60 RF: 2 metoprolol succinate 100 mg tablet extended release 24 hr 100 mg PO DAILY 90 Days Qty: 90 RF: 2 clopidogrel 75 mg tablet 75 mg PO DAILY 90 Days Qty: 90 RF: 2 methadone [Methadone Intensol] 10 mg/mL concentrate 61 mg PO DAILY RF: 0 aspirin [Adult Aspirin Regimen] 81 mg tablet,delayed release (DR/EC) 81 mg PO DAILY RF: 0 (DME) blood pressure monitor Kit See Rx Instructions .ROUTE .MEDSUPPLY Qty: 1 RF: 0 nicotine 14 mg/24 hr patch 24 hour 1 patch transdermal DAILY Qty: 28 RF: 3 Referrals: Juan Cadet, ROTARY FURNACE OPERATOR-BC [Primary Care Provider] - 2 days Stand Alone Forms: Work/School Release
[2020-12-30 10:28] LABS: B Type Natriuretic Peptide 57 pg/mL (<100); Troponin-I High Sensitivity 6.4 ng/L (<3.5-35.0)
[2020-12-30 10:30] LABS: Alanine Aminotransferase 38 U/L (0-40); Albumin Level 4.1 g/dL (3.5-5.0); Alkaline Phosphatase 85 U/L (39-117); Anion Gap 10 (12-20); Aspartate Amino Transferase 27 U/L (5-37); Bilirubin Direct 0.3 mg/dL (0.0-0.5); Blood Urea Nitrogen 8 mg/dL (9-16); Calcium 9.2 mg/dL (8.4-10.2); Carbon Dioxide 27 mmol/L (22-29); Chloride 109 mmol/L (96-108); Creatinine Clr Calc Pharmacy 122.1; Estimated Glomerular Filt Rate > 60; Glucose Random 106 mg/dL (60-115); Lipase 18 U/L (8-78); Potassium 4.6 mmol/L (3.3-5.1); Sodium 141 mmol/L (135-145); Total Protein 6.7 g/dL (6.5-8.0)
[2020-12-30 12:21] VITALS: BP 101/71; PULSE 57; RESP 16; TEMP 36.6; O2SAT 98
[2020-12-30 12:40] LABS: D Dimer 542 NG/ML
[2020-12-30 12:52] LABS: Troponin-I High Sensitivity 9.4 ng/L (<3.5-35.0)
--- NOTE | 2020-12-30 13:54 | PC.NURSE ---
IV PLACED FOR CTA. SEAMARK ADVANCED OPERATOR MAINTAINER LEADS SHOWING ECTOPY, CORDS READJUSTED AND MONITOR CONTINUING TO SHOW SINUS BRADYCARDIA/SINUS RHYTHM RATE 55-68 THROUGHOUT IV PLACEMENT. PT C/O SOME SOB, SPO2 98% ON RA. TAKEN TO CTA VIA STRETCHER.
[2020-12-30 14:10] VITALS: BP 127/79; PULSE 61; RESP 18; O2SAT 98
[2020-12-30] MEDS: iohexoL 350 MG/ML 100 ML INFUS..BTL 71 ML IV (14:13)
== END 2020-12-30 15:09 | disposition home or self-care (01) ==
PROVIDERS: Emergency Provider Emergency Medicine; PCP Nurse Practitioner Family
DX: R07.9 Chest pain, unspecified (principal); I25.10 Atherosclerotic heart disease of native coronary artery without angina pectoris; R06.02 Shortness of breath; F17.210 Nicotine dependence, cigarettes, uncomplicated; Z71.6 Tobacco abuse counseling; Z79.899 Other long term (current) drug therapy
CPT/HCPCS: 36415; 71045; 71275; 80048; 80076; 82550; 83690; 83880; 84484; 85025; 85379; 93005; 99283; 99285; Q9967

== ENCOUNTER → 2021-01-04 12:55 | Outpatient (BNVA) | payer OTHER, SELFPAY | PROVIDERS: PCP Nurse Practitioner Family; Referring Provider Nurse Practitioner Family; Visit Provider Internal Medicine Cardiovascular Disease | DX: I25.5 Ischemic cardiomyopathy (principal); R07.9 Chest pain, unspecified; I25.10 Atherosclerotic heart disease of native coronary artery without angina pectoris; I10 Essential (primary) hypertension; I21.09 ST elevation (STEMI) myocardial infarction involving other coronary artery of anterior wall; E66.9 Obesity, unspecified; Z68.34 Body mass index [BMI] 34.0-34.9, adult; Z95.810 Presence of automatic (implantable) cardiac defibrillator; Z95.5 Presence of coronary angioplasty implant and graft; Z79.899 Other long term (current) drug therapy | CPT/HCPCS: 99212 ==

== ENCOUNTER → 2021-04-22 13:52 | Outpatient (BNVA) | payer OTHER, SELFPAY | PROVIDERS: PCP Nurse Practitioner Family; Referring Provider Nurse Practitioner Family; Visit Provider Nurse Practitioner Family | DX: Z95.810 Presence of automatic (implantable) cardiac defibrillator (principal); R00.2 Palpitations; R06.02 Shortness of breath; I25.5 Ischemic cardiomyopathy; I25.2 Old myocardial infarction; I10 Essential (primary) hypertension; F41.9 Anxiety disorder, unspecified | CPT/HCPCS: 99212 ==

== ENCOUNTER → 2021-05-11 14:56 | Outpatient (REF) | payer OTHER, SELFPAY ==
--- NOTE | 2021-05-11 15:01 | HM_ITS ---
Total monitoring time 2 days and 23 hours. Underlying rhythm is sinus. Minimum heart rate 44/Min. Maximum 114/Min. Average 75/Min. No atrial fibrillation or flutter or AV blocks or pauses. Very rare supraventricular and ventricular ectopy with minimal burden. No patient events. MTDD
== END ==
LOC: HO.CARD 14:56
PROVIDERS: PCP Nurse Practitioner Family; Visit Provider Nurse Practitioner Family
DX: R00.2 Palpitations (principal)
CPT/HCPCS: 93242

== ENCOUNTER → 2021-06-07 07:45 | Outpatient (REF) | payer OTHER, SELFPAY ==
--- NOTE | 2021-06-07 07:47 | CA_ITS ---
Transthoracic Echocardiogram Patient (Last, First, Middle): Chaz Hartmann C Gender: Male Date of : 1975 Age: 46 Procedure Date: 06/07/2021 Procedure Type: Transthoracic Echocardiogram Location: OP Height: 172.72 cm Weight: 102.06 kg BSA: 2.15 m2 Heart Rate: bpm BP: 128 / 80 mmHg Veneer Trimmer: ANDRES Referring MD: Tarsha Meade MAKE UP OPERATOR-Juan Auto Bumper Mechanic: Asad Parker MD Symptoms: I25.5 - Ischemic cardiomyopathy Study Quality: Fair ECG Rhythm: Sinus Conclusions: - 1. moderate to severe LV systolic dysfunction with regional wall motion abnormality suggestive of ischemic cardiomyopathy with LVEF of 30-35% with pseudonormal filling pattern 2. Normal cardiac valvular Doppler 3. No gross pericardial effusion Findings Procedure Information Contrast agent, definity, is being given per protocol without apparent complications. Left Ventricle Normal left ventricular cavity size. There is mildly increased left ventricular wall thickness. The left ventricular systolic function is moderate to severely decreased. The visually estimated ejection fraction is between 30-35%. Spectral Doppler is indicative of a pseudonormal filling pattern. E/E prime ratio is between 8 and 15 consistent with indeterminate filling pressures. Wall Motion Rest Echo Findings The basal anteroseptal segment is hypokinetic. The apical anterior, mid anterior, apical septum, mid inferoseptal, and mid anteroseptal segments are akinetic. The apex segment is dyskinetic. All other scored wall segments showed normal motion. Right Ventricle Normal right ventricular cavity size. There is mildly decreased right ventricular systolic function. There is an ICD wire seen in the right ventricle. Atria The left atrium is mildly dilated. The right atrium is normal in size. Aortic Valve The aortic valve was not well visualized. There is no aortic valve stenosis. There is no aortic valve regurgitation. Mitral Valve The mitral valve was not well visualized. There is trace mitral valve regurgitation. There is no mitral valve stenosis. Pulmonic Valve The pulmonic valve was not well visualized. Tricuspid Valve The tricuspid valve was not well visualized. Tricuspid regurgitation envelope is inadequate for calculation of right ventricular systolic pressure. Great Vessels All visible segments of the aorta are normal in size. The pulmonary artery was not well visualized. Venous The inferior vena cava was not well visualized. Pericardium/Pleural There is no evidence of pericardial effusion. Prior Study Comparison No significant change compared to prior study dated: 06/26/2020. Measurements 2D Linear Measurements IVSd: 1.22 0.6-0.9/0.6-1.0 cm LVIDd: 4.95 3.9-5.3/4.2-5.9 cm LVIDd Index: 2.30 2.4-3.2/2.2-3.1 cm/m2 LVIDs: 4.34 2.0-3.6 cm LVPWd: 1.24 0.7-1.1 cm Ao Root: 3.50 2.1-3.5 cm LA Diam: 3.90 2.7-3.8/3.0-4.0 cm LAIDs Index: 1.81 1.5-2.3 cm/m2 LV Mass: 297.00 67-162/88-224 g LV Mass Index: 138.14 43-95/49-115 g/m2 LVOT Diam: 2.20 3.0+(-)1.3 cm Mitral Valve MV Pk E: 0.81 MV PK A: 0.57 MV Decel Time: 188.00 E/A: 1.40 E'Lateral: 10.70 E'Medial: 6.74 E/E' Med: 12.00 E/E' Lat: 7.60 PHT: 55.00 MVA PHT: 4.00 Decel [place]: 4.32 Aortic Valve AoV Pk Jameel: 1.16 AoV Mn Jameel: 0.84 AoV VTI: 0.29 AoV Pk Grad: 5.00 Aov Mn Grad: 3.00 JOLYNN Cont.VTI: 2.45 LVOT LVOT Pk Jameel: 0.85 LVOT Mn Jameel: 0.61 LVOT VTI: 0.19 LVOT Pk Grad: 3.00 LVOT Mn Grad: 2.00 LVOT Diam: 2.20 LVOT Area: 3.80 Diastolic Function MV Pk E: 0.81 MV Pk A: 0.57 E/A: 1.40 E'Medial: 6.74 E/E' Med: 12.00 E' Laterial: 10.70 E/E' Lat: 7.60 Tricuspid Valve TR Pk Jameel: 1.61 TR Pk Grad: 10.00 Great Vessels Aorta Ao Root-2D: 3.50 2.0-3.7 cm Ao Asc: 2.90 2.1-3.4 cm Pulmonary Valve PV Pk Jameel: 1.15 Peak PV Grad: 5.00 Updated in Other Vendor System with Status of Final Asad Parker MD electronically signed on 06/07/2021 12:32:33 PM with status of Final
== END ==
LOC: HO.CARD 07:45
PROVIDERS: PCP Nurse Practitioner Family; Visit Provider Nurse Practitioner Family
DX: R06.02 Shortness of breath (principal)
CPT/HCPCS: 93306; Q9957

== ENCOUNTER → 2021-06-15 13:38 | Outpatient (BNVA) | payer OTHER, SELFPAY | PROVIDERS: PCP Nurse Practitioner Family; Referring Provider Nurse Practitioner Family; Visit Provider Nurse Practitioner Family | DX: Z45.02 Encounter for adjustment and management of automatic implantable cardiac defibrillator (principal); I25.5 Ischemic cardiomyopathy; I10 Essential (primary) hypertension; R00.2 Palpitations; R06.02 Shortness of breath; F41.9 Anxiety disorder, unspecified | CPT/HCPCS: 99212 ==

== ENCOUNTER → 2021-07-06 11:27 | Outpatient (BNVA) | payer OTHER, SELFPAY | PROVIDERS: PCP Nurse Practitioner Family; Visit Provider Internal Medicine | DX: G47.33 Obstructive sleep apnea (adult) (pediatric) (principal) | CPT/HCPCS: 99212 ==

== ENCOUNTER → 2021-11-17 12:18 | Outpatient (BNVA) | payer OTHER, SELFPAY | PROVIDERS: PCP Nurse Practitioner Family; Referring Provider Nurse Practitioner Family; Visit Provider Internal Medicine Cardiovascular Disease | DX: Z45.02 Encounter for adjustment and management of automatic implantable cardiac defibrillator (principal); R07.9 Chest pain, unspecified; R00.2 Palpitations; R06.02 Shortness of breath; R42 Dizziness and giddiness | CPT/HCPCS: 93005; 99212 ==

== ENCOUNTER → 2021-12-02 07:55 | Outpatient (REF) | payer OTHER, SELFPAY ==
--- NOTE | ~2021-12-02 | NM_ITS ---
EXERCISE MYOCARDIAL PERFUSION STUDY INDICATION: Coronary artery disease, assess for ischemia TECHNIQUE: The patient was brought in for an exercise perfusion study on 12/02/2021. Patient performed exercise as per Derik protocol and was injected 35 mCi of sestamibi once target heart rate was achieved. Images were obtained using the SPECT gamma camera interlaced with the gating device. Images were obtained in supine position. Resting perfusion study was performed on 12/03/2021. Patient was administered 35 mCi of sestamibi intravenously at rest. Images were then obtained in supine position. Total DLP 121mGy-cm. Images were processed with the software and compared side to side in short axis, horizontal long axis and vertical long axis views. FINDINGS: Raw images were reviewed. The stress perfusion study showed absent tracer uptake in the apex, adjacent parts of anterior septum, most of septum and adjacent anterior wall, apical inferior wall. No significant change with CT attenuation correction. The gated study shows diminished LV systolic function with calculated LVEF of 45%. LV cavity is dilated in size. The gated study shows akinesis involving the apex, most of septum and adjacent anterior wall. Resting study shows absent tracer uptake involving the apex, anterior septum, most of septum, parts of anterior wall, apical inferior wall and overall similar to stress acquisition. No significant change with CT attenuation correction. Gating at rest reveals ejection fraction at 33%; akinesis involving the apex, most of septum and adjacent anterior wall. The findings are consistent with fixed perfusion defect involving the apex, adjacent parts of anterior septum, most of septum, anterior wall, inferior apex. Minimal reversibility. NM/NM cardiolite stress test IMPRESSION: 1. Myocardial perfusion imaging study shows large anterior wall myocardial infarction with minimal cass-infarct ischemia. 2. Gated LVEF is 44% during stress and 33% during rest. Correlate with echocardiogram. 3. Transient ischemic dilatation not present. LV cavity is dilated. EKG component of the test reported separately.
--- NOTE | 2021-12-02 07:58 | CA_ITS ---
Acquisition Time: 2021-12-02 08:06:14 Total Exercise Time: 00:07:31 Test Indications: CP, SOB Medications: SEE CHART Protocol: ESHA Max HR: 155 BPM 88% of Pred: 175 BPM Max BP: 146/070 mmHG Max Work Load: 9.3 METS Exercise stress test with exercise 7 min 31 sec of Esha protocol, achieving 88% MPHR, 9.3 METs, with moderate sob, no chest discomfort, without arrythmia, with normotensive response to exercise, without EKG changes meeting criteria for ischemia. Breathing normalized in recovery. Nuclear images pending. Test reviewed with Dr Wiseman. Referred By: Francisco Frederick Overread By: TACO ZARATE
== END ==
LOC: HO.CARD 07:55
PROVIDERS: PCP Nurse Practitioner Family; Visit Provider Internal Medicine Cardiovascular Disease
DX: R07.9 Chest pain, unspecified (principal)
CPT/HCPCS: 78452; 93017; A9500

== ENCOUNTER → 2022-02-23 15:09 | Outpatient (BNVA) | payer OTHER, SELFPAY | PROVIDERS: PCP Nurse Practitioner Family; Referring Provider Nurse Practitioner Family; Visit Provider Internal Medicine Cardiovascular Disease | DX: R00.2 Palpitations (principal); R07.9 Chest pain, unspecified; I25.5 Ischemic cardiomyopathy | CPT/HCPCS: 99212 ==

== ENCOUNTER → 2022-03-21 20:45 | Outpatient (REF) | payer OTHER, SELFPAY | LOC: HO.SL 20:45 | PROVIDERS: Visit Provider Internal Medicine | DX: Z13.89 Encounter for screening for other disorder (principal) ==

== ENCOUNTER → 2022-07-12 15:48 | Outpatient (BNVA) | payer OTHER, SELFPAY | PROVIDERS: PCP Nurse Practitioner Family; Visit Provider Internal Medicine Cardiovascular Disease | DX: I25.5 Ischemic cardiomyopathy (principal); R10.9 Unspecified abdominal pain | CPT/HCPCS: 93005 ==

== ENCOUNTER 2022-07-26 09:52 | Outpatient (REF) | payer OTHER, SELFPAY ==
[2022-07-26 11:11] LABS: MANUAL DIFF FLAG NO
[2022-07-26 12:18] LABS: Basophils Percent Auto 0.4 % (0-2); Eosinophils Absolute Auto 0.1 X10*3/uL (0.0-0.4); Eosinophils Percent Auto 1.5 % (0-4); Hemoglobin 14.9 g/dl (14.0-18.0); Imm Gran Abs Auto 0.02 X10*3/uL (0.00-0.03); Imm Gran Pct Auto 0.3 % (0.0-0.4); Lymphocytes Percent Auto 26.8 % (20-40); Mean Corpuscular HGB Conc 33.9 g/dl (31.0-36.0); Mean Corpuscular Hemoglobin 32.4 pg (27.0-33.0); Mean Corpuscular Volume 95.7 fL (80.0-98.0); Mean Platelet Volume 10.4 fL (9.4-12.4); Monocytes Absolute Auto 0.5 X10*3/uL (0.1-1.2); Monocytes Percent Auto 6.7 % (2-11); Neutrophils Absolute Auto 4.8 x10*3/uL (2.0-8.3); Neutrophils Percent Auto 64.3 % (45-73); Platelet Count 279 X10*3/uL (160-400); Red Cell Distribution Width 13.1 % (11.0-16.0); White Blood Count 7.5 X10*3/uL (4.8-10.8)
[2022-07-26 12:22] LABS: Prothrombin Time 11.3 SEC (10.0-13.1)
[2022-07-26 12:58] LABS: Alanine Aminotransferase 43 U/L (0-40); Albumin Level 4.3 g/dL (3.5-5.0); Alkaline Phosphatase 91 U/L (39-117); Anion Gap 15 (12-20); Aspartate Amino Transferase 31 U/L (5-37); Bilirubin Total 1.3 mg/dL (0.0-1.0); Blood Urea Nitrogen 13 mg/dL (9-16); Calcium 9.3 mg/dL (8.4-10.2); Carbon Dioxide 26 mmol/L (22-29); Chloride 104 mmol/L (96-108); Cholesterol 175 mg/dL; Estimated Glomerular Filt Rate > 60; Glucose Random 112 mg/dL (60-115); HDL Cholesterol 45 mg/dL; LDL Cholesterol Calculated 89 mg/dl; Potassium 4.7 mmol/L (3.3-5.1); Sodium 140 mmol/L (135-145); Total Protein 6.9 g/dL (6.5-8.0); Triglycerides 206 mg/dL
[2022-07-27 07:11] LABS: ~HepC Num1 0.11 S/CO (0.00-0.79); ~Hepatitis C Antibody Nonreactive (Nonreactive)
[2022-07-27 07:24] LABS: HBc Num1 9.76 S/CO (0.00-0.79); HIV AB/AG Nonreactive (Nonreactive); HIV Num 1 0.08 S/CO (0.00-0.99); Hepatitis A Antibody IgG Nonreactive (Nonreactive); ~Hepatitis A Antibody IgG 0.94 S/CO (0.00-0.99); ~Hepatitis B Surface Antibody NONREACTIVE (Nonreactive)
[2022-07-27 10:01] LABS: HBc Num2 9.88 S/CO; HBc Num3 10.03 S/CO
[2022-07-27 10:02] LABS: Hepatitis B Core Antibody Reactive (Nonreactive)
[2022-07-27 11:07] LABS: HBsAGNum2 Reactive; HBsAGNum3 Reactive; Hepatitis B Surface Antigen Retest CNFM (Negative)
[2022-07-27 11:08] LABS: Neutralization % 100
[2022-07-29 08:58] LABS: Hepatitis B Core Antibody IgM NON-REACTIVE (NON-REACTIVE)
[2022-07-30 15:22] LABS: Hepatitis B Viral DNA Qn - cp 3.17 Log IU/mL (NOT DETECTED); Hepatitis B Viral DNA Qn-IU/mL 1480 IU/mL (NOT DETECTED)
[2022-08-07 11:49] LABS: Hepatitis Delta Antibody NEGATIVE
== END 2022-07-26 09:53 | disposition home or self-care (01) ==
LOC: HO.LAB 09:52
PROVIDERS: Nurse Practitioner Family; PCP Nurse Practitioner Family; Visit Provider Internal Medicine
DX: R10.9 Unspecified abdominal pain (principal); K74.60 Unspecified cirrhosis of liver; I25.5 Ischemic cardiomyopathy; I25.10 Atherosclerotic heart disease of native coronary artery without angina pectoris; Z91.89 Other specified personal risk factors, not elsewhere classified; Z11.59 Encounter for screening for other viral diseases
CPT/HCPCS: 36415; 80053; 80061; 85025; 85610; 86692; 86704; 86705; 86706; 86708; 86803; 87340; 87389; 87517

== ENCOUNTER 2022-07-29 11:14 | Outpatient (REF) | payer OTHER, SELFPAY ==
--- NOTE | ~2022-07-29 | US_ITS ---
EXAMINATION: US ABDOMEN COMPLETE CLINICAL INFORMATION: Unspecified abdominal pain. COMPARISON: Ultrasound abdomen complete 12/22/2017. CT abdomen and pelvis 11/22/2016. TECHNIQUE: Real-time imaging of the abdominal viscera. Technically limited study secondary to bowel gas and body habitus. FINDINGS: Limited examination secondary to patient body habitus and shadowing from overlying bowel gas. PANCREAS: Pancreatic tail obscured by overlying bowel gas, otherwise visualized portions are normal. ABDOMINAL AORTA: The proximal, mid, and distal segments are normal in caliber. INFERIOR VENA CAVA: Visualized portions are normal. LIVER: The liver is normal in size. The liver contour is normal. Increased echogenicity. No focal hepatic lesion. There is no intrahepatic biliary duct dilatation seen. GALLBLADDER: Normal. The gallbladder is physiologically distended without evidence of stones, sludge, polyps, wall thickening or pericholecystic fluid. COMMON BILE DUCT: Normal in caliber measuring 0.5 cm in diameter. RIGHT KIDNEY: Normal. No hydronephrosis. No renal calculi or focal parenchymal lesions. The kidney measures 11.0 cm in maximum dimension. LEFT KIDNEY: Normal. No hydronephrosis. No renal calculi or focal parenchymal lesions. The kidney measures 11.1 cm in maximum dimension. SPLEEN: Normal. The spleen measures 10.5 cm in maximum dimension. FREE FLUID: None. US/US abdomen complete IMPRESSION: Limited examination due to patient body habitus and overlying bowel gas. 1. Increased echogenicity of the liver most consistent with hepatic steatosis in the appropriate clinical context. 2. Otherwise, normal examination.
== END 2022-07-29 11:15 | disposition home or self-care (01) ==
LOC: HO.US 11:14
PROVIDERS: PCP Nurse Practitioner Family; Visit Provider Internal Medicine
DX: R10.9 Unspecified abdominal pain (principal)
CPT/HCPCS: 76700

== ENCOUNTER → 2022-08-09 09:56 | Outpatient (BNVA) | payer OTHER, SELFPAY | PROVIDERS: PCP Nurse Practitioner Family; Visit Provider Internal Medicine | DX: Z23 Encounter for immunization (principal) | CPT/HCPCS: 90471; 90632 ==

== ENCOUNTER → 2022-09-14 15:53 | Outpatient (BNVA) | payer OTHER, SELFPAY | PROVIDERS: PCP Nurse Practitioner Family; Referring Provider Nurse Practitioner Family; Visit Provider Internal Medicine Cardiovascular Disease ==

== ENCOUNTER → 2022-09-20 11:50 | Day surgery (SDC) | payer OTHER, SELFPAY ==
[2022-09-15 11:00] VITALS: BMI 36.0
--- NOTE | 2022-09-16 12:58 | P.CONAN_ITS ---
HPI - Anesthesia Eval Consult details Narrative: 47yo F for Upper Endoscopy ICD in situ Follows [facility] cardiology for ischemic cmp EF 30-35% following anterior wall AR. Referred to GI by cardiology for indegestion and abdominal pain. Methadone daily PMFSH Active Problems Active Problems: All Active Problems (Updated 08/25/22 @ 11:57 by Juan Cadet, [facility]) Smoker (Acute) Physical exam (Acute) Encounter for hepatitis C virus screening test for high risk patient (Acute) Abdominal pain (Acute) Chest pain (Acute) Nocturnal hypoxemia (Acute) EVETTE (obstructive sleep apnea) (Acute) Shortness of breath (Acute) Palpitations (Acute) Anxiety (Acute) Dizziness (Acute) Obesity (BMI 30-39.9) (Acute) Obstructive sleep apnea (Acute) Hypersomnia (Acute) Daytime somnolence (Acute) HTN (hypertension) (Acute) Visit for wound check (Acute) ICD (implantable cardioverter-defibrillator) in place (Acute) Tobacco abuse (Acute) Ischemic cardiomyopathy (Acute) Left knee pain (Acute) Chest pain (Acute) Dyspnea (Acute) Past Medical History Medical History Anterior wall myocardial infarction CAD (coronary artery disease) HTN (hypertension) ICD (implantable cardioverter-defibrillator) in place Ischemic cardiomyopathy Nocturnal hypoxemia NSVT (nonsustained ventricular tachycardia) Obesity (BMI 30-39.9) EVETTE (obstructive sleep apnea) Tobacco abuse Family History Family History Other Mental health disorder Surgical History Surgical History H/O heart artery stent H/O hernia repair H/O knee surgery History of esophagogastroduodenoscopy (EGD) Hx of colonoscopy Social History Social History Household Members: None Housing: House Do you presently have visiting nurse or other home services: No Unable to assess alcohol history related to: Unknown Alcohol intake: never Patient Tobacco Use Status: Current everyday Tobacco user Tobacco use type: Cigarette Cigarettes Per Day: 10 Years Smoked: 30 e-Cigarette/Vaping Use: Never Used Second Hand Smoke Exposure: No Advance Directives Date on File: 09/14/20 service: No Current occupational status: employed Current occupation: [employer] - [employer] Cognitive needs: No Hearing needs: No Vision needs: No Meds Allergies Allergy/AdvReac Type Severity Reaction Status Date / Time No Known Allergies Allergy Verified 09/29/22 08:34 Home Medications Medication Instructions Recorded Confirmed Last Taken Type aspirin 81 mg tablet,delayed 81 mg PO DAILY 04/14/20 09/29/22 09/20/22 History release (Adult Aspirin Regimen) methadone 10 mg/mL oral 33 mg PO DAILY 08/25/22 09/29/22 09/20/22 History concentrate (Methadone Intensol) Exam Exam Date and Time: September 16, 2022 1258 Height,Weight and Vital Signs: Height 5 ft 8 in Weight 107.501 kg Pertinent Lab Results Pertinent Lab Results: Laboratory Tests 07/26/22 07/26/22 11:09 11:09 WBC 7.5 Hgb 14.9 Hct 44.0 Plt Count 279 Sodium 140 Potassium 4.7 Chloride 104 Carbon Dioxide 26 BUN 13 Creatinine 0.83 Narrative Narrative: Cardiac Device Check 08/2022 Details: HF monitoring. Stable thoracic impedance. Cardiac Device Check 06/2022 Details: ICD.? Battery life more than 5 years.? No ventricular tachycardia or ventricular fibrillation.? V paced less than 1%.? Episodes of supraventricular tachycardia recorded.? Differential is sinus tachycardia versus atrial tachycardia based on the recorded EGMs. EKG 06/2022 Sinus rhythm 97 beats per minute, normal axis, anteroseptal infarct, QTC 469 milliseconds. ECHO 2021 Conclusions: - 1.? moderate to severe LV systolic dysfunction with regional ? wall motion abnormality suggestive of ischemic cardiomyopathy? ? with LVEF of 30-35% with pseudonormal filling pattern? 2. Normal cardiac valvular Doppler ? 3. No gross pericardial effusion ? NM cardiolite stress test 11/2021 IMPRESSION: ? 1.? Myocardial perfusion imaging study shows large anterior wall myocardial infarction with minimal cass-infarct ischemia. 2.? Gated LVEF is 44% during stress and 33% during rest. Correlate with echocardiogram. 3. Transient ischemic dilatation not present. LV cavity is dilated. ? EKG component of the test reported separately. Assessment and Plan Assessment Anesthesia Assessment: Chart Reviewed
[2022-09-20 12:36] LABS: Amphetamine Screen Urine Not Detected (Not Detect); Barbiturates, Urine Not Detected (Not Detect); Benzodiazepines Screen Urine Not Detected (Not Detect); Cannabinoid Screen Urine Not Detected (Not Detect); Cocaine Screen Urine Not Detected (Not Detect); Fentanyl, urine Not Detected (Not Detect); Opiate Screen Urine Not Detected (Not Detect); Phencyclidine Screen Urine Not Detected (Not Detect)
== END ==
PROVIDERS: Nurse Practitioner; PCP Nurse Practitioner Family; Visit Provider Internal Medicine Gastroenterology
DX: R10.9 Unspecified abdominal pain (principal); Z53.09 Procedure and treatment not carried out because of other contraindication; Z95.810 Presence of automatic (implantable) cardiac defibrillator; Z79.891 Long term (current) use of opiate analgesic; Z79.82 Long term (current) use of aspirin; G47.33 Obstructive sleep apnea (adult) (pediatric); F17.210 Nicotine dependence, cigarettes, uncomplicated
CPT/HCPCS: 80307

== ENCOUNTER 2022-09-29 07:54 | Day surgery (SDC) | payer OTHER, SELFPAY ==
--- NOTE | 2022-09-28 13:00 | P.CONAN_ITS ---
Documented by User: Ariana David NP 09/28/22 13:01 HPI - Anesthesia Eval Consult details Narrative: 47yo F for Upper Endoscopy ICD in situ Follows [facility] cardiology for ischemic cmp EF 30-35% following anterior wall HI. Referred to GI by cardiology for indegestion and abdominal pain. Methadone daily PMFSH Active Problems Active Problems: All Active Problems (Updated 08/25/22 @ 11:57 by Juan Cadet, [facility]) Smoker (Acute) Physical exam (Acute) Encounter for hepatitis C virus screening test for high risk patient (Acute) Abdominal pain (Acute) Chest pain (Acute) Nocturnal hypoxemia (Acute) EVETTE (obstructive sleep apnea) (Acute) Shortness of breath (Acute) Palpitations (Acute) Anxiety (Acute) Dizziness (Acute) Obesity (BMI 30-39.9) (Acute) Obstructive sleep apnea (Acute) Hypersomnia (Acute) Daytime somnolence (Acute) HTN (hypertension) (Acute) Visit for wound check (Acute) ICD (implantable cardioverter-defibrillator) in place (Acute) Tobacco abuse (Acute) Ischemic cardiomyopathy (Acute) Left knee pain (Acute) Chest pain (Acute) Dyspnea (Acute) Past Medical History Medical History Anterior wall myocardial infarction CAD (coronary artery disease) HTN (hypertension) ICD (implantable cardioverter-defibrillator) in place Ischemic cardiomyopathy Nocturnal hypoxemia NSVT (nonsustained ventricular tachycardia) Obesity (BMI 30-39.9) EVETTE (obstructive sleep apnea) Tobacco abuse Family History Family History Other Mental health disorder Surgical History Surgical History H/O heart artery stent H/O hernia repair H/O knee surgery History of esophagogastroduodenoscopy (EGD) Hx of colonoscopy Social History Social History Household Members: None Housing: House Do you presently have visiting nurse or other home services: No Unable to assess alcohol history related to: Unknown Alcohol intake: never Patient Tobacco Use Status: Current everyday Tobacco user Tobacco use type: Cigarette Cigarettes Per Day: 10 Years Smoked: 30 e-Cigarette/Vaping Use: Never Used Second Hand Smoke Exposure: No Substance Use Frequency: Occasionally Are you DNR?: No Advance Directives: No Advance Directives Information Provided: Yes Advance Directives Date on File: 09/14/20 Nutrition Risks: No Nutritional Risk service: No Current occupational status: employed Current occupation: [employer] - [employer] Cognitive needs: No Hearing needs: No Vision needs: No Meds Allergies Allergy/AdvReac Type Severity Reaction Status Date / Time No Known Allergies Allergy Verified 09/29/22 08:34 Home Medications Medication Instructions Recorded Confirmed Last Taken Type aspirin 81 mg tablet,delayed 81 mg PO DAILY 04/14/20 09/29/22 09/20/22 History release (Adult Aspirin Regimen) methadone 10 mg/mL oral 33 mg PO DAILY 08/25/22 09/29/22 09/20/22 History concentrate (Methadone Intensol) Exam Exam Date and Time: September 28, 2022 1300 Height,Weight and Vital Signs: Height 5 ft 8 in Weight 107.501 kg Pertinent Lab Results Pertinent Lab Results: Laboratory Tests 07/26/22 07/26/22 11:09 11:09 WBC 7.5 Hgb 14.9 Hct 44.0 Plt Count 279 Sodium 140 Potassium 4.7 Chloride 104 Carbon Dioxide 26 BUN 13 Creatinine 0.83 Narrative Narrative: Cardiac Device Check 08/2022 Details: HF monitoring. Stable thoracic impedance. Cardiac Device Check 06/2022 Details: ICD.? Battery life more than 5 years.? No ventricular tachycardia or ventricular fibrillation.? V paced less than 1%.? Episodes of supraventricular tachycardia recorded.? Differential is sinus tachycardia versus atrial tachycardia based on the recorded EGMs. EKG 06/2022 Sinus rhythm 97 beats per minute, normal axis, anteroseptal infarct, QTC 469 milliseconds. ECHO 2021 Conclusions: - 1.? moderate to severe LV systolic dysfunction with regional ? wall motion abnormality suggestive of ischemic cardiomyopathy? ? with LVEF of 30-35% with pseudonormal filling pattern? 2. Normal cardiac valvular Doppler ? 3. No gross pericardial effusion ? NM cardiolite stress test 11/2021 IMPRESSION: ? 1.? Myocardial perfusion imaging study shows large anterior wall myocardial infarction with minimal cass-infarct ischemia. 2.? Gated LVEF is 44% during stress and 33% during rest. Correlate with echocardiogram. 3. Transient ischemic dilatation not present. LV cavity is dilated. ? EKG component of the test reported separately. Assessment and Plan Assessment Anesthesia Assessment: Chart Reviewed Documented by User: Vito Jones MD 09/29/22 08:55 [facility] Past Medical History Medical History Anterior wall myocardial infarction CAD (coronary artery disease) HTN (hypertension) ICD (implantable cardioverter-defibrillator) in place Ischemic cardiomyopathy Nocturnal hypoxemia NSVT (nonsustained ventricular tachycardia) Obesity (BMI 30-39.9) EVETTE (obstructive sleep apnea) Tobacco abuse Family History Family History Other Mental health disorder Family history of problems with anesthesia: No Surgical History Surgical History H/O heart artery stent H/O hernia repair H/O knee surgery History of esophagogastroduodenoscopy (EGD) Hx of colonoscopy History of Problems with Anesthesia: No Social History Social History Household Members: None Housing: House Do you presently have visiting nurse or other home services: No Unable to assess alcohol history related to: Unknown Alcohol intake: never Patient Tobacco Use Status: Current everyday Tobacco user Tobacco use type: Cigarette Cigarettes Per Day: 10 Years Smoked: 30 e-Cigarette/Vaping Use: Never Used Second Hand Smoke Exposure: No Substance Use Frequency: Occasionally Are you DNR?: No Advance Directives: No Advance Directives Information Provided: Yes Advance Directives Date on File: 09/14/20 Nutrition Risks: No Nutritional Risk service: No Current occupational status: employed Current occupation: [employer] Cognitive needs: No Hearing needs: No Vision needs: No Meds Allergies Allergy/AdvReac Type Severity Reaction Status Date / Time No Known Allergies Allergy Verified 09/29/22 08:34 Home Medications Medication Instructions Recorded Confirmed Last Taken Type aspirin 81 mg tablet,delayed 81 mg PO DAILY 04/14/20 09/29/22 09/20/22 History release (Adult Aspirin Regimen) methadone 10 mg/mL oral 33 mg PO DAILY 08/25/22 09/29/22 09/20/22 History concentrate (Methadone Intensol) Exam Airway Mallampati Class: III TM Dist: >3cm Neck ROM: Limited Heart: rrr Lungs: cta Assessment and Plan Assessment Anesthesia Assessment: Anesthesia Plan Discussed and Smoking Cess. Discussed Final Anesthetic Review Family History of Problems with Anesthesia: No History of Problems with Anesthesia: No NPO: Yes ASA Class: IV Final Preanesthetic Review: No Changes in Pt Med Stat, Meds/Allgs Chart Reviewed, Consent Obtained/Reviewed and Anes Risks/Benef Reviewed Patient Risk: High Procedure Risk: Intermediate Anesthetic Plan Anesthetic Plan: MAC: and Agree w/ Assess. and Plan Disposition: Standard PACU
[2022-09-29 07:20] VITALS: BMI 35.1
[2022-09-29 08:25] VITALS: BP 130/95; PULSE 87; RESP 18; TEMP 36.7; O2SAT 95
[2022-09-29] MEDS: Lactated Ringers 1,000 ML 50 ML IVCONT (08:26)
--- NOTE | 2022-09-29 08:49 | P.HPSUR_ITS ---
Pre-Procedural Eval Section A Date of Service: 09/29/22 Section B Chief Complaint: Unspecified abdominal pain Relevant Family History (Specify if Yes): No Relevant Social History: Tobacco Use Present Medications: see Short Stay Collaborative assessment Medical History: Significant History (Anterior wall myocardial infarction CAD (coronary artery disease) HTN (hypertension) ICD (implantable cardioverter- defibrillator) in place Ischemic cardiomyopathy Nocturnal hypoxemia NSVT (nonsustained ventricular tachycardia) Obesity (BMI 30-39.9) EVETTE (obstructive sleep apnea) Tobacco abuse) History of Previous Operations: Relevant previous surgery/procedure and date(s) (H/O heart artery stent H/O hernia repair H/O knee surgery History of esophagogastroduodenoscopy (EGD) Hx of colonoscopy) Allergies: Allergies Allergy/AdvReac Type Severity Reaction Status Date / Time No Known Allergies Allergy Verified 09/29/22 08:34 Review of Systems Sugical H&P ROS: Negative: Constitution, Cardiovascular, Respiratory, Neurological, Psychiatric, Hem-Onc, Allergic/Immunologic, Gastrointestinal, Genitourinary, Musculoskeletal, Integumentary, Endocrine and Eyes/Ears/Nose/Throat Exam Surgical H&P Exam: Normal: HEENT, Normal: Heart, Normal: Lungs, Normal: Extremities, Normal: Abdomen, Normal: Skin and Normal: Neurological Plan Diagnosis/Plan: Unchanged I have reviewed the history and physical and performed a pertinent physical examination on my patient. No changes have occurred unless specified. Time Spent With Patient Time: Total time managing care of this patient today ____ minutes.
--- NOTE | 2022-09-29 08:50 | W.PM.OPN ---
Operative Note Operative Note Date of Service: 09/29/22 Narrative: Procedure Description: EGD Indication: epigastric pain Anesthesia: MAC FLEXIBLE TRANSORAL UPPER GASTROINTESTINAL ENDOSCOPY UPPER ENDOSCOPY Consent: Indications for the procedure and potential complications of bleeding, perforation, reaction to medications and missed diagnosis were discussed with the patient and informed consent was obtained. Instrument: Olympus GIF H 190 J mid size upper endoscope Monitoring: Vital signs and clinical assessment, continuous EKG monitoring, Pulse oximetry, Carbon Dioxide monitoring and blood pressure monitoring were done throughout the procedure. Procedure: The patient was placed in the left lateral decubitis position and pre-procedure medications were administered and a bite block was placed. The endoscope was inserted into the mouth and advanced under direct vision to the third part of duodenum. A careful inspection was made as the upper endoscope was withdrawn including a retroflexed examination of the proximal stomach; Findings and interventions are described below. Findings: Larynx:normal Esophagus: GE junction at 40 cm, diaphragm hiatus at 40 cm, no varices or esophagitis, bx taken from distal esophagus Stomach: Patchy gastric erythema. Biopsies were obtained. Grade 2 flap valve on retroflexed examination of the cardia. Good peristalsis noted. Duodenum: Normal bulb and descending duodenum, bx taken Intervention: Biopsies as noted above Impression/Findings: gastritis PLAN: cont with PPI, feeling better with it, jsut started a month ago, may take up to 3 months for full effect, if ongoing sx then can increase dose, recommend smoking cessation
[2022-09-29 09:15] VITALS: BP 137/75; PULSE 90; RESP 16; TEMP 36.4; O2SAT 96
[2022-09-29 09:30] VITALS: BP 128/80; PULSE 82; RESP 20; TEMP 36.6; O2SAT 95
== END 2022-09-29 09:56 | disposition home or self-care (01) ==
PROVIDERS: PCP Nurse Practitioner Family; Visit Provider Internal Medicine Gastroenterology
PROC: 0DJ08ZZ Inspection of Upper Intestinal Tract, Via Natural or Artificial Opening Endoscopic (ICD-10-PCS; CPT 43235; principal; 2022-09-29 16:10)
DX: R10.13 Epigastric pain (principal); K29.50 Unspecified chronic gastritis without bleeding; K21.9 Gastro-esophageal reflux disease without esophagitis; K44.9 Diaphragmatic hernia without obstruction or gangrene; I25.10 Atherosclerotic heart disease of native coronary artery without angina pectoris; I25.2 Old myocardial infarction; Z95.5 Presence of coronary angioplasty implant and graft; I25.5 Ischemic cardiomyopathy; I10 Essential (primary) hypertension; Z95.810 Presence of automatic (implantable) cardiac defibrillator; G47.33 Obstructive sleep apnea (adult) (pediatric); E66.9 Obesity, unspecified; Z68.35 Body mass index [BMI] 35.0-35.9, adult; Z79.899 Other long term (current) drug therapy; F17.210 Nicotine dependence, cigarettes, uncomplicated
CPT/HCPCS: 43239; 88305; 88342

== ENCOUNTER → 2022-10-04 09:32 | Outpatient (BNVA) | payer OTHER, SELFPAY | PROVIDERS: PCP Nurse Practitioner Family; Visit Provider Internal Medicine ==

== ENCOUNTER → 2022-11-21 23:59 | Outpatient (BNV) | payer OTHER, SELFPAY ==
--- NOTE | 2022-12-05 09:31 | MHC.OFFVIS ---
Intake Intake Visit Reasons: Remote HF Monitoring- [facility] Allergies No Known Allergies Allergy (Verified 10/04/22 09:37) PFSH Medical History Anterior wall myocardial infarction CAD (coronary artery disease) HTN (hypertension) ICD (implantable cardioverter-defibrillator) in place Ischemic cardiomyopathy Nocturnal hypoxemia NSVT (nonsustained ventricular tachycardia) Obesity (BMI 30-39.9) EVETTE (obstructive sleep apnea) Tobacco abuse Surgical History H/O heart artery stent H/O hernia repair H/O knee surgery History of esophagogastroduodenoscopy (EGD) Hx of colonoscopy Family History Other Mental health disorder Social History Household Members: None Housing: House Do you presently have visiting nurse or other home services: No Unable to assess alcohol history related to: Unknown Alcohol intake: never Patient Tobacco Use Status: Current everyday Tobacco user Tobacco use type: Cigarette Cigarettes Per Day: 10 Years Smoked: 30 e-Cigarette/Vaping Use: Never Used Second Hand Smoke Exposure: No Advance Directives Date on File: 09/14/20 service: No Current occupational status: employed Current occupation: [employer] - [employer] Cognitive needs: No Hearing needs: No Vision needs: No Office Procedures Cardiac Device Check Cardiac Device Check Details: Heart failure monitoring. Stable thoracic impedance. [id number] Cardiac Device Interrogation, cardio physiologic monitor Procedure code (CPT) selection complete Assessment & Plan Assessment & Plan (1) Ischemic cardiomyopathy: Code(s): I25.5 - Ischemic cardiomyopathy Coding Level of Care Code Procedure Only Diagnoses Ischemic cardiomyopathy I25.5 CPT Codes Cardiac Device Check - Cardiac Device 15: [id number] Cardiac Device Interrogation, cardio physiologic monitor ([id number])
== END ==
PROVIDERS: PCP Nurse Practitioner Family; Visit Provider Internal Medicine Cardiovascular Disease
DX: I25.5 Ischemic cardiomyopathy (principal)
CPT/HCPCS: 93297

== ENCOUNTER → 2023-01-04 23:59 | Outpatient (BNV) | payer OTHER, SELFPAY ==
--- NOTE | 2023-01-18 21:23 | MHC.OFFVIS ---
Intake Intake Visit Reasons: Remote ICD Check- [facility] Allergies No Known Allergies Allergy (Verified 10/04/22 09:37) PFSH Medical History Anterior wall myocardial infarction CAD (coronary artery disease) HTN (hypertension) ICD (implantable cardioverter-defibrillator) in place Ischemic cardiomyopathy Nocturnal hypoxemia NSVT (nonsustained ventricular tachycardia) Obesity (BMI 30-39.9) EVETTE (obstructive sleep apnea) Tobacco abuse Surgical History H/O heart artery stent H/O hernia repair H/O knee surgery History of esophagogastroduodenoscopy (EGD) Hx of colonoscopy Family History Other Mental health disorder Social History Household Members: None Housing: House Do you presently have visiting nurse or other home services: No Unable to assess alcohol history related to: Unknown Alcohol intake: never Patient Tobacco Use Status: Current everyday Tobacco user Tobacco use type: Cigarette Cigarettes Per Day: 10 Years Smoked: 30 e-Cigarette/Vaping Use: Never Used Second Hand Smoke Exposure: No Advance Directives Date on File: 09/14/20 service: No Current occupational status: employed Current occupation: [employer] - [employer] Cognitive needs: No Hearing needs: No Vision needs: No Office Procedures Cardiac Device Check Cardiac Device Check Details: ICD Good battery life. Multiple episodes of SVT and NSVT recorded. [id number] Cardiac Device Interrogation, pacemaker or defibrillator Procedure code (CPT) selection complete Assessment & Plan Assessment & Plan Medications: Discontinued clopidogrel Discontinued Reason: Patient no longer taking 75 mg PO DAILY 90 tabs 0RF Coding Level of Care Code Procedure Only CPT Codes Cardiac Device Check - Cardiac Device 14: [id number] Cardiac Device Interrogation, pacemaker or defibrillator ([id number])
== END ==
PROVIDERS: PCP Nurse Practitioner Family; Visit Provider Internal Medicine Cardiovascular Disease
DX: I47.1 Supraventricular tachycardia (principal); Z95.810 Presence of automatic (implantable) cardiac defibrillator
CPT/HCPCS: 93295

== ENCOUNTER → 2023-01-16 23:59 | Outpatient (BNV) | payer OTHER, SELFPAY ==
--- NOTE | 2023-01-18 21:44 | MHC.OFFVIS ---
Intake Intake Visit Reasons: Remote HF monitoring- [facility] Allergies No Known Allergies Allergy (Verified 10/04/22 09:37) PFSH Medical History Anterior wall myocardial infarction CAD (coronary artery disease) HTN (hypertension) ICD (implantable cardioverter-defibrillator) in place Ischemic cardiomyopathy Nocturnal hypoxemia NSVT (nonsustained ventricular tachycardia) Obesity (BMI 30-39.9) EVETTE (obstructive sleep apnea) Tobacco abuse Surgical History H/O heart artery stent H/O hernia repair H/O knee surgery History of esophagogastroduodenoscopy (EGD) Hx of colonoscopy Family History Other Mental health disorder Social History Household Members: None Housing: House Do you presently have visiting nurse or other home services: No Unable to assess alcohol history related to: Unknown Alcohol intake: never Patient Tobacco Use Status: Current everyday Tobacco user Tobacco use type: Cigarette Cigarettes Per Day: 10 Years Smoked: 30 e-Cigarette/Vaping Use: Never Used Second Hand Smoke Exposure: No Advance Directives Date on File: 09/14/20 service: No Current occupational status: employed Current occupation: [employer] - [employer] Cognitive needs: No Hearing needs: No Vision needs: No Office Procedures Cardiac Device Check Cardiac Device Check Details: HF monitoring Stable thoracic impedance. [id number] Cardiac Device Interrogation, cardio physiologic monitor Procedure code (CPT) selection complete Assessment & Plan Assessment & Plan (1) Ischemic cardiomyopathy: Code(s): I25.5 - Ischemic cardiomyopathy Orders: Orders AMB Cardiac Device Follow-up 01/16/23 I25.5 - Ischemic cardiomyopathy Coding Level of Care Code Procedure Only Diagnoses Ischemic cardiomyopathy I25.5 CPT Codes Cardiac Device Check - Cardiac Device 15: [id number] Cardiac Device Interrogation, cardio physiologic monitor ([id number])
== END ==
PROVIDERS: PCP Nurse Practitioner Family; Visit Provider Internal Medicine Cardiovascular Disease
DX: I25.5 Ischemic cardiomyopathy (principal)
CPT/HCPCS: 93297

== ENCOUNTER 2023-02-08 15:13 | Outpatient (AMB) | payer OTHER, SELFPAY ==
--- NOTE | 2023-02-08 15:20 | MHC.OFFVIS ---
Intake Vital Signs 02/08/23 15:21 Height 5 ft 8 in Weight 224 lb 13.944 oz BMI 34.2 BP 120/80 Blood Pressure Location Lt brachial Position Sitting Pulse 77 Intake Visit Reasons: 5 mth f/up Intake Note: 5 month follow-up c/o dizziness, fatigue, palpitations, chest pains Lap Welder Required: No Allergies No Known Allergies Allergy (Verified 10/04/22 09:37) Medication List - Last Reconciled 02/08/23 by Francisco Frederick MD aspirin (Adult Aspirin Regimen) 81 mg PO DAILY atorvastatin 80 mg PO BEDTIME 90 days betamethasone dipropionate 0.05% 1 appl topical DAILY PRN bismuth subsalicylate 2 tabs PO QID blood pressure monitor As directed buspirone 10 mg PO BID 90 days empagliflozin (Jardiance) 10 mg PO DAILY methadone (Methadone Intensol) 33 mg PO DAILY metoprolol succinate ER (Toprol XL) 200 mg PO DAILY 90 days metronidazole 250 mg PO QID pantoprazole 20 mg PO DAILY sacubitril-valsartan 24-26 mg (Entresto) 1 tab PO BID tetracycline 500 mg PO QID HPI HPI Comments History of Present Illness Details Pleasant 47-year-old gentleman here for follow-up. He has background history of coronary artery disease with previous anterior MS and ischemic cardiomyopathy with EF 30-35% status post ICD placement. He is here for follow-up. On last visit he was complaining of jitteriness. He also was complaining of acid reflux and abdominal pain. He was referred to GI. His metoprolol dose was increased. He is saying that since increase the metoprolol his jitteriness is improved and he is feeling much better. Denying any chest pain or shortness of breath on follow-up. He is trying to do cardiac rehabilitation but due to flash with his job timing he is unable to go there very regularly. Overall doing much better. 02/08/2023: He returns for follow-up. His device interrogation has shown atrial arrhythmia. He is due to get cardiac event monitor to understand whether he has atrial flutter or SVT. He also has been experiencing some palpitations off and on. He went for cardiac rehabilitation but feels that he did not improve significantly and continues to get fatigue. He is asking whether he can use We[employer] for weight loss. [facility] Medical History Anterior wall myocardial infarction CAD (coronary artery disease) HTN (hypertension) ICD (implantable cardioverter-defibrillator) in place Ischemic cardiomyopathy Nocturnal hypoxemia NSVT (nonsustained ventricular tachycardia) Obesity (BMI 30-39.9) EVETTE (obstructive sleep apnea) Tobacco abuse Surgical History H/O heart artery stent H/O hernia repair H/O knee surgery History of esophagogastroduodenoscopy (EGD) Hx of colonoscopy Family History Other Mental health disorder Social History Household Members: None Housing: House Do you presently have visiting nurse or other home services: No Unable to assess alcohol history related to: Unknown Alcohol intake: never Patient Tobacco Use Status: Current everyday Tobacco user Tobacco use type: Cigarette Cigarettes Per Day: 10 Years Smoked: 30 e-Cigarette/Vaping Use: Never Used Second Hand Smoke Exposure: No Advance Directives Date on File: 09/14/20 service: No Current occupational status: employed Current occupation: [employer] - Right Handed Cognitive needs: No Hearing needs: No Vision needs: No Review of Systems Const Denies chills, Denies fatigue, Denies fever(s), Denies frequent falls, Denies weakness, Denies weight gain and Denies weight loss ENT Denies dizziness Card Denies chest pain, Denies leg edema, Denies lightheadedness, Denies palpitations, Denies dyspnea, Denies dyspnea on exertion, Denies orthopnea and Denies other (loss of consciousness) Resp Denies cough, Denies dyspnea and Denies dyspnea on exertion GI Denies hematochezia and Denies change in stool character Musc Denies abnormal gait, Denies muscle weakness, Denies numbness, Denies radiating pain into limb and Denies tingling Neuro Denies abnormal gait, Denies dizziness, Denies frequent falls, Denies numbness, Denies tingling and Denies weakness Endo Denies fatigue and Denies palpitations Physical Exam Vital Signs: Last Vital Signs Pulse 77 02/08/23 15:21 BP 120/80 02/08/23 15:21 BMI result Body Mass Index 34.2 GENERAL APPEARANCE: in no acute distress, pleasant. NECK: no carotid bruit, no jugular venous distention. SKIN: no suspicious lesions, warm and dry. HEART: no murmurs, regular rate and rhythm. LUNGS: clear to auscultation bilaterally. ABDOMEN: soft, nontender. EXTREMITIES: no edema. PERIPHERAL PULSES: equal. NEUROLOGIC: No gross deficits, AAO X 3 Office Procedures EKG Details: Normal sinus rhythm 77 beats per minute, normal axis, anteroseptal infarct, QTC 402 milliseconds. [id number], Complete Assessment & Plan Assessment & Plan (1) SVT (supraventricular tachycardia): Code(s): I47.1 - Supraventricular tachycardia (2) Ischemic cardiomyopathy: Code(s): I25.5 - Ischemic cardiomyopathy Plan [age] year gentleman with ischemic cardiomyopathy due to anterior wall MS who currently has ICD in place. The device interrogation has shown runs of SVT versus atrial flutter. He is going to get cardiac event monitor. Increasing the Entresto because his blood pressure has been stable and I think he can tolerate the higher dose. He is otherwise on Jardiance and Toprol-XL 200 mg daily. He will discuss his primary care physician about starting Semaglutide. I do not see any absolute contraindication but he will discuss with his PCP. Thank you for allowing me to participate in the care of your patient. Please feel free to contact me if you have any questions. Medications: New sacubitril-valsartan 49-51 mg (Entresto) 1 tab PO BID 60 tabs 6RF Changed From bismuth subsalicylate 2 tabs PO QID 14 days 112 tabs 0RF To bismuth subsalicylate 2 tabs PO QID From metronidazole 250 mg PO QID 14 days 56 tabs 0RF To metronidazole 250 mg PO QID From tetracycline 500 mg PO QID 14 days 56 caps 0RF To tetracycline 500 mg PO QID Discontinued sacubitril-valsartan 24-26 mg (Entresto) Discontinued Reason: None 1 tab PO BID 60 tabs 3RF Coding Level of Care Code Est Pt Level 4 (37531) Diagnoses SVT (supraventricular tachycardia) I47.1 Ischemic cardiomyopathy I25.5 CPT Codes EKG - CPT: 88312-[id number], Complete ([id number])
[2023-02-08 15:21] VITALS: BP 120/80; PULSE 77; BMI 34.2
== END 2023-02-08 15:58 | disposition home or self-care (01) ==
PROVIDERS: PCP Nurse Practitioner Family; Visit Provider Internal Medicine Cardiovascular Disease
DX: I47.1 Supraventricular tachycardia (principal); I25.5 Ischemic cardiomyopathy
CPT/HCPCS: 93010; 99214

== ENCOUNTER → 2023-02-08 15:13 | Outpatient (BNVA) | payer OTHER, SELFPAY | PROVIDERS: PCP Nurse Practitioner Family; Visit Provider Internal Medicine Cardiovascular Disease | DX: I47.10 Supraventricular tachycardia, unspecified (principal); I25.5 Ischemic cardiomyopathy; I25.2 Old myocardial infarction; Z95.810 Presence of automatic (implantable) cardiac defibrillator | CPT/HCPCS: 93005 ==

== ENCOUNTER → 2023-02-14 10:25 | Outpatient (REF) | payer OTHER, SELFPAY ==
--- NOTE | 2023-02-14 10:32 | HM_ITS ---
Cardiac event monitor Indication: SVT Technique: Patient was hooked up to cardiac event monitor on 02/14/2023 for 30 days with compliance rate of 88.5%. I was requested to read this study on 04/04/2023. Findings: Baseline rhythm is predominantly normal sinus rhythm with 92% of time heart rate within normal range. There were rare PACs and PVCs noted. There was 1 4 beat episode of paroxysmal atrial tachycardia noted. There is also one 13 beat episode of wide complex tachycardia most likely nonsustained VT at about 133 beats per minute. Patient reported 4 events 1 with chest pain and 2 with dizziness or lightheadedness and 1 without symptom correlating with sinus rhythm. Conclusion: 1. Baseline was normal sinus rhythm with no significant pauses 2. Thirteen beat nonsustained VT at 133 beats per minute 3. Patient reported events correlated with sinus rhythm MTDD
== END ==
LOC: HO.CARD 10:25
PROVIDERS: PCP Nurse Practitioner Family; Visit Provider Internal Medicine Cardiovascular Disease
DX: I47.10 Supraventricular tachycardia, unspecified (principal)
CPT/HCPCS: 93270

== ENCOUNTER → 2023-02-14 10:32 | Outpatient (BNV) | payer OTHER, SELFPAY | PROVIDERS: PCP Nurse Practitioner Family; Visit Provider Internal Medicine Cardiovascular Disease | DX: I47.10 Supraventricular tachycardia, unspecified (principal) | CPT/HCPCS: 93272 ==

== ENCOUNTER → 2023-02-16 23:59 | Outpatient (BNV) | payer OTHER, SELFPAY ==
--- NOTE | 2023-02-20 11:35 | MHC.OFFVIS ---
Intake Intake Visit Reasons: Remote HF Monitoring- [facility] Allergies No Known Allergies Allergy (Verified 10/04/22 09:37) PFSH Medical History Anterior wall myocardial infarction CAD (coronary artery disease) HTN (hypertension) ICD (implantable cardioverter-defibrillator) in place Ischemic cardiomyopathy Nocturnal hypoxemia NSVT (nonsustained ventricular tachycardia) Obesity (BMI 30-39.9) EVETTE (obstructive sleep apnea) Tobacco abuse Surgical History H/O heart artery stent H/O hernia repair H/O knee surgery History of esophagogastroduodenoscopy (EGD) Hx of colonoscopy Family History Other Mental health disorder Social History Household Members: None Housing: House Do you presently have visiting nurse or other home services: No Unable to assess alcohol history related to: Unknown Alcohol intake: never Patient Tobacco Use Status: Current everyday Tobacco user Tobacco use type: Cigarette Cigarettes Per Day: 10 Years Smoked: 30 e-Cigarette/Vaping Use: Never Used Second Hand Smoke Exposure: No Advance Directives Date on File: 09/14/20 service: No Current occupational status: employed Current occupation: [employer] - Right [employer]ed Cognitive needs: No Hearing needs: No Vision needs: No Office Procedures Cardiac Device Check Cardiac Device Check Details: HF monitoring Stable thoracic impedance. [id number] Cardiac Device Interrogation, cardio physiologic monitor Procedure code (CPT) selection complete Assessment & Plan Assessment & Plan (1) Ischemic cardiomyopathy: Code(s): I25.5 - Ischemic cardiomyopathy Orders: Orders AMB Cardiac Device Follow-up 02/16/23 I25.5 - Ischemic cardiomyopathy Coding Level of Care Code Procedure Only Diagnoses Ischemic cardiomyopathy I25.5 CPT Codes Cardiac Device Check - Cardiac Device 15: [id number] Cardiac Device Interrogation, cardio physiologic monitor ([id number])
== END ==
PROVIDERS: PCP Nurse Practitioner Family; Visit Provider Internal Medicine Cardiovascular Disease
DX: I25.5 Ischemic cardiomyopathy (principal); Z95.810 Presence of automatic (implantable) cardiac defibrillator
CPT/HCPCS: 93297

== ENCOUNTER → 2023-03-31 23:59 | Outpatient (BNV) | payer OTHER, SELFPAY ==
--- NOTE | 2023-04-03 17:32 | MHC.OFFVIS ---
Intake Intake Visit Reasons: Remote HF Monitoring- [facility] Allergies No Known Allergies Allergy (Verified 10/04/22 09:37) PFSH Medical History Anterior wall myocardial infarction CAD (coronary artery disease) HTN (hypertension) ICD (implantable cardioverter-defibrillator) in place Ischemic cardiomyopathy Nocturnal hypoxemia NSVT (nonsustained ventricular tachycardia) Obesity (BMI 30-39.9) EVETTE (obstructive sleep apnea) Tobacco abuse Surgical History H/O heart artery stent H/O hernia repair H/O knee surgery History of esophagogastroduodenoscopy (EGD) Hx of colonoscopy Family History Other Mental health disorder Social History Household Members: None Housing: House Do you presently have visiting nurse or other home services: No Unable to assess alcohol history related to: Unknown Alcohol intake: never Patient Tobacco Use Status: Current everyday Tobacco user Tobacco use type: Cigarette Cigarettes Per Day: 10 Years Smoked: 30 e-Cigarette/Vaping Use: Never Used Second Hand Smoke Exposure: No Advance Directives Date on File: 09/14/20 service: No Current occupational status: employed Current occupation: [employer] - Right [employer]ed Cognitive needs: No Hearing needs: No Vision needs: No Office Procedures Cardiac Device Check Cardiac Device Check Details: HF monitoring Stable thoracic impedance. [id number] Cardiac Device Interrogation, cardio physiologic monitor Procedure code (CPT) selection complete Assessment & Plan Assessment & Plan (1) ICD (implantable cardioverter-defibrillator) in place: Comment: [facility] single-chamber ICD for primary prevention, implanted 09/18/2020 Code(s): Z95.810 - Presence of automatic (implantable) cardiac defibrillator Plan: Orders: Orders AMB Cardiac Device Follow-up 03/31/23 Z95.810 - Presence of automatic (implantable) cardiac defibrillator Coding Level of Care Code Procedure Only Diagnoses ICD (implantable cardioverter-defibrillator) in place Z95.810 CPT Codes Cardiac Device Check - Cardiac Device 15: [id number] Cardiac Device Interrogation, cardio physiologic monitor ([id number])
== END ==
PROVIDERS: PCP Nurse Practitioner Family; Visit Provider Internal Medicine Cardiovascular Disease
DX: I25.5 Ischemic cardiomyopathy (principal); Z95.810 Presence of automatic (implantable) cardiac defibrillator
CPT/HCPCS: 93297

== ENCOUNTER → 2023-04-12 23:59 | Outpatient (BNV) | payer OTHER, SELFPAY ==
--- NOTE | 2023-04-13 20:42 | MHC.OFFVIS ---
Intake Intake Visit Reasons: Remote ICD Check- [facility] Allergies No Known Allergies Allergy (Verified 10/04/22 09:37) [facility] Medical History Anterior wall myocardial infarction CAD (coronary artery disease) HTN (hypertension) ICD (implantable cardioverter-defibrillator) in place Ischemic cardiomyopathy Nocturnal hypoxemia NSVT (nonsustained ventricular tachycardia) Obesity (BMI 30-39.9) EVETTE (obstructive sleep apnea) Tobacco abuse Surgical History H/O heart artery stent H/O hernia repair H/O knee surgery History of esophagogastroduodenoscopy (EGD) Hx of colonoscopy Family History Other Mental health disorder Social History Household Members: None Housing: House Do you presently have visiting nurse or other home services: No Unable to assess alcohol history related to: Unknown Alcohol intake: never Patient Tobacco Use Status: Current everyday Tobacco user Tobacco use type: Cigarette Cigarettes Per Day: 10 Years Smoked: 30 e-Cigarette/Vaping Use: Never Used Second Hand Smoke Exposure: No Advance Directives Date on File: 09/14/20 service: No Current occupational status: employed Current occupation: [employer] - Right Handed Cognitive needs: No Hearing needs: No Vision needs: No Office Procedures Cardiac Device Check Cardiac Device Check Details: ICD Good battery life No device therapies. Multiple episodes of SVT and nonsustained VT recorded since last year. Episodes are sporadic. [id number] Cardiac Device Interrogation, pacemaker Procedure code (CPT) selection complete Assessment & Plan Assessment & Plan (1) ICD (implantable cardioverter-defibrillator) in place: Comment: [facility] single-chamber ICD for primary prevention, implanted 09/18/2020 Code(s): Z95.810 - Presence of automatic (implantable) cardiac defibrillator Plan Orders: Orders AMB Cardiac Device Follow-up 04/12/23 Z95.810 - Presence of automatic (implantable) cardiac defibrillator Coding Level of Care Code Procedure Only Diagnoses ICD (implantable cardioverter-defibrillator) in place Z95.810 CPT Codes Cardiac Device Check - Cardiac Device 12: [id number] Cardiac Device Interrogation, pacemaker ([id number])
== END ==
PROVIDERS: PCP Nurse Practitioner Family; Visit Provider Internal Medicine Cardiovascular Disease
DX: Z45.02 Encounter for adjustment and management of automatic implantable cardiac defibrillator (principal); Z95.810 Presence of automatic (implantable) cardiac defibrillator
CPT/HCPCS: 93294

== ENCOUNTER → 2023-05-22 23:59 | Outpatient (BNV) | payer OTHER, SELFPAY ==
--- NOTE | 2023-06-03 20:29 | MHC.OFFVIS ---
Intake Intake Visit Reasons: Remote HF Monitoring- [facility] Allergies No Known Allergies Allergy (Verified 10/04/22 09:37) PFSH Medical History Anterior wall myocardial infarction CAD (coronary artery disease) HTN (hypertension) ICD (implantable cardioverter-defibrillator) in place Ischemic cardiomyopathy Nocturnal hypoxemia NSVT (nonsustained ventricular tachycardia) Obesity (BMI 30-39.9) EVETTE (obstructive sleep apnea) Tobacco abuse Surgical History H/O heart artery stent H/O hernia repair H/O knee surgery History of esophagogastroduodenoscopy (EGD) Hx of colonoscopy Family History Other Mental health disorder Social History Household Members: None Housing: House Do you presently have visiting nurse or other home services: No Unable to assess alcohol history related to: Unknown Alcohol intake: never Patient Tobacco Use Status: Current everyday Tobacco user Tobacco use type: Cigarette Cigarettes Per Day: 10 Years Smoked: 30 e-Cigarette/Vaping Use: Never Used Second Hand Smoke Exposure: No Advance Directives Date on File: 09/14/20 service: No Current occupational status: employed Current occupation: [employer] - Right [employer]ed Cognitive needs: No Hearing needs: No Vision needs: No Office Procedures Cardiac Device Check Cardiac Device Check Details: HF monitoring Stable thoracic impedance. [id number] Cardiac Device Interrogation, cardio physiologic monitor Procedure code (CPT) selection complete Assessment & Plan Assessment & Plan (1) Ischemic cardiomyopathy: Code(s): I25.5 - Ischemic cardiomyopathy Plan: Coding Level of Care Code Procedure Only Diagnoses Ischemic cardiomyopathy I25.5 CPT Codes Cardiac Device Check - Cardiac Device 15: [id number] Cardiac Device Interrogation, cardio physiologic monitor ([id number])
== END ==
PROVIDERS: PCP Nurse Practitioner Family; Visit Provider Internal Medicine Cardiovascular Disease
DX: I25.5 Ischemic cardiomyopathy (principal); Z95.810 Presence of automatic (implantable) cardiac defibrillator
CPT/HCPCS: 93297

== ENCOUNTER 2023-07-18 14:34 | Outpatient (AMB) | payer OTHER, SELFPAY ==
--- NOTE | 2023-07-18 14:41 | A.OFFVIS_ITS ---
Intake Vital Signs 07/18/23 14:42 Height 5 ft 8 in Weight 232 lb 5.875 oz BMI 35.3 BP 120/82 Blood Pressure Location Lt brachial Position Sitting Pulse 95 Pulse Source Pulse Oximeter Intake Visit Reasons: r/s 4 mos followup Postal Delivery Officer Required: No Allergies No Known Allergies Allergy (Verified 07/18/23 14:44) Medication List - Last Reconciled 07/18/23 by Tarsha Meade NP-C aspirin (Adult Aspirin Regimen) 81 mg PO DAILY atorvastatin 80 mg PO BEDTIME 90 days betamethasone dipropionate 0.05% 1 appl topical DAILY PRN bismuth subsalicylate 2 tabs PO QID blood pressure monitor As directed buspirone 10 mg PO BID 90 days empagliflozin (Jardiance) 10 mg PO DAILY methadone (Methadone Intensol) 33 mg PO DAILY metoprolol succinate ER (Toprol XL) 200 mg PO DAILY 90 days metronidazole 250 mg PO QID pantoprazole 20 mg PO DAILY sacubitril-valsartan 49-51 mg (Entresto) 1 tab PO BID HPI r/s 4 mos followup HPI Details Chaz is a 48-year-old male with past medical history of hypertension, hyperlipidemia, CAD, anterior wall DC 12/2017 with proximal LAD stent placed, ischemic cardiomyopathy status post ICD who presents for follow-up. Today he reports he has been feeling well overall. He describes having 1 episode of chest discomfort that occurred in the night and lasted 10-15 minutes before he then fell asleep. He has not had any daytime symptoms of chest discomfort with physical activity. He gets mildly short of breath and fatigued with exertional activities. No PND, orthopnea or edema. No lightheadedness, presyncope, syncope, falls. No ICD shocks. Taking all meds as directed. He is going on a cruise for vacation in a few weeks. [facility] Medical History (Updated 07/18/23 @ 17:01 by Tarsha Meade NP-C) Anterior wall myocardial infarction Nocturnal hypoxemia EVETTE (obstructive sleep apnea) Obesity (BMI 30-39.9) ICD (implantable cardioverter-defibrillator) in place HTN (hypertension) CAD (coronary artery disease) Tobacco abuse Ischemic cardiomyopathy NSVT (nonsustained ventricular tachycardia) Surgical History Hx of colonoscopy History of esophagogastroduodenoscopy (EGD) H/O heart artery stent H/O hernia repair H/O knee surgery Family History Other Mental health disorder Social History Household Members: None Housing: House Do you presently have visiting nurse or other home services: No Unable to assess alcohol history related to: Unknown Alcohol intake: never Patient Tobacco Use Status: Current everyday Tobacco user Tobacco use type: Cigarette Cigarettes Per Day: 10 Years Smoked: 30 e-Cigarette/Vaping Use: Never Used Second Hand Smoke Exposure: No Advance Directives Date on File: 09/14/20 service: No Current occupational status: employed Current occupation: [employer] - Right Handed Cognitive needs: No Hearing needs: No Vision needs: No Review of Systems Const All systems reviewed & are unremarkable except as noted in HPI and below ENT Denies dizziness Card Reports chest pain, Denies chest pain at rest, Denies chest pain with activity, Denies rapid heart rate, Denies pedal edema, Denies edema, Denies leg edema, Denies lightheadedness, Denies palpitations, Denies dyspnea, Denies dyspnea on exertion and Denies orthopnea Resp Denies cough, Denies dyspnea and Denies dyspnea on exertion GI Denies hematochezia and Denies change in stool character Musc Denies abnormal gait, Denies limited range of motion, Denies muscle cramps, Denies muscle weakness, Denies numbness, Denies radiating pain into limb, Denies stiffness and Denies tingling Neuro Denies abnormal gait, Denies dizziness, Denies numbness and Denies tingling Endo Denies palpitations Physical Exam Vital Signs: Last Vital Signs Pulse 95 07/18/23 14:42 BP 120/82 07/18/23 14:42 BMI result Body Mass Index 35.3 Const General: cooperative, healthy appearing, comfortable and no acute distress Orientation/consciousness: patient oriented x3 Neck Neck: Yes normal visual inspection and Yes no JVD Resp Effort & Inspection: normal respiratory effort Auscultation: clear to auscultation bilaterally, no rales, no rhonchi and no wheezes Cardio Jugular venous distension: no JVD Rate: regular rate Rhythm: regular rhythm Heart sounds: S1 normal heart sound present, S2 normal heart sound present, no murmurs and no rubs Neuro General: patient oriented x3 Extrem General: Yes normal to inspection and No no pedal edema Psych Appearance: grossly normal Mental Status: mental status grossly normal Speech and movement: Normal speech and movement present Office Procedures Cardiac Device Check Cardiac Device Check Details: [facility] single lead ICD interrogation today shows battery 7.5-8 years, VVI mode, low rate 40, V paced less than 1%, SVT alerts last occurring 05/15/2023, no alerts since then, no therapies, V sensing and impedance normal and unchanged from 05/24/2023.. Therapy settings reviewed. [id number] Cardiac Device Check, single lead implantable defibrillator Procedure code (CPT) selection complete EKG Details: Today, read by me, normal sinus rhythm, septal infarct, rate 86, QTC 449 milliseconds [id number], Complete Assessment & Plan Assessment & Plan (1) Anterior wall myocardial infarction: Comment: 12/2017 STEMI, ANTONIETA to proximal LAD Code(s): I21.09 - ST elevation (STEMI) myocardial infarction involving other coronary artery of anterior wall Plan: History of anterior wall DC 12/2017. ANTONIETA to the LAD at that time. He has residual ischemic cardiomyopathy. Last known EF 30-35%. He has a single lead ICD in place. He feels well overall. He describes 1 episode of chest discomfort, nonexertional, resolving without treatment. He denies any exertional chest discomfort. His some mild fatigue and shortness of breath at times which is not new. Last nuclear stress test was done on 12/03/2021 showing a large anterior wall DC with minimal cass-infarct ischemia. His last echocardiogram was 06/07/2021 showing EF 30-35%, wall motion abnormality suggesting ischemic cardiomyopathy, normal valves. Will update his echocardiogram to reassess EF, wall motion. EKG done today showing sinus rhythm with old anterior/septal infarct, rate 86. Will continue on aspirin indefinitely. Continue atorvastatin with ideal LDL goal less than 80. Most recent labs 07/26/2022 showed LDL 89. He is due for an updated fasting lipid profile which has been ordered by his PCP. Continue metoprolol and Entresto for neurohormonal modulation. Blood pressure is well controlled. Signs and symptoms of angina reviewed. His 1 episode of discomfort could have been GI related. If cardiac symptom it has not reoccurred. Cardiology follow-up 6 months, sooner if needed. (2) Ischemic cardiomyopathy: Code(s): I25.5 - Ischemic cardiomyopathy Plan: Last echo with EF 30-35%. Has ICD for primary prevention. Euvolemic on examination today. Ongoing medical management with Entresto, metoprolol for neurohormonal modulation. Signs and symptoms of heart failure reviewed (3) ICD (implantable cardioverter-defibrillator) in place: Comment: [facility] single-chamber ICD for primary prevention, implanted 09/18/2020 Code(s): Z95.810 - Presence of automatic (implantable) cardiac defibrillator Plan: Single-chamber ICD in place. Office interrogation today shows device is functioning normally. Short runs of SVT, none since April. He has remote monitoring in use. Next office interrogation in 6 months (4) HTN (hypertension): Code(s): I10 - Essential (primary) hypertension Plan: Normal range today. No med changes made Orders: Orders CA echo transthoracic complete Today I21.09 - ST elevation (STEMI) myocardial infarction involving other coronary artery of anterior wall, I25.5 - Ischemic cardiomyopathy Coding Level of Care Code Est Pt Level 4 (79443) Diagnoses Anterior wall myocardial infarction I21.09 Ischemic cardiomyopathy I25.5 ICD (implantable cardioverter-defibrillator) in place Z95.810 HTN (hypertension) I10 CPT Codes Cardiac Device Check - Cardiac Device 4: [id number] Cardiac Device Check, single lead implantable defibrillator ([id number]) EKG - CPT: 93633-Kwnnwrtahbtqycklo, Complete ([id number]) Time Spent (min) 30
[2023-07-18 14:42] VITALS: BP 120/82; PULSE 95; BMI 35.3
== END 2023-07-18 15:39 | disposition home or self-care (01) ==
PROVIDERS: PCP Nurse Practitioner Family; Visit Provider Nurse Practitioner Family
DX: I21.09 ST elevation (STEMI) myocardial infarction involving other coronary artery of anterior wall (principal); I25.5 Ischemic cardiomyopathy; Z95.810 Presence of automatic (implantable) cardiac defibrillator; I10 Essential (primary) hypertension
CPT/HCPCS: 93010; 93282; 99214

== ENCOUNTER → 2023-07-18 14:34 | Outpatient (BNVA) | payer OTHER, SELFPAY | PROVIDERS: PCP Nurse Practitioner Family; Visit Provider Nurse Practitioner Family | DX: I25.5 Ischemic cardiomyopathy (principal); I10 Essential (primary) hypertension; I25.2 Old myocardial infarction; Z45.02 Encounter for adjustment and management of automatic implantable cardiac defibrillator; Z79.82 Long term (current) use of aspirin; Z79.899 Other long term (current) drug therapy | CPT/HCPCS: 93005 ==

== ENCOUNTER → 2023-07-28 23:59 | Outpatient (BNV) | payer OTHER, SELFPAY ==
--- NOTE | 2023-07-31 21:55 | MHC.OFFVIS ---
Intake Intake Visit Reasons: Remote HF monitoring- [facility] Allergies No Known Allergies Allergy (Verified 07/18/23 14:44) [facility] Medical History (Updated 07/18/23 @ 17:01 by Tarsha Meade NP-C) Anterior wall myocardial infarction Nocturnal hypoxemia EVETTE (obstructive sleep apnea) Obesity (BMI 30-39.9) ICD (implantable cardioverter-defibrillator) in place HTN (hypertension) CAD (coronary artery disease) Tobacco abuse Ischemic cardiomyopathy NSVT (nonsustained ventricular tachycardia) Surgical History Hx of colonoscopy History of esophagogastroduodenoscopy (EGD) H/O heart artery stent H/O hernia repair H/O knee surgery Family History Other Mental health disorder Social History Household Members: None Housing: House Do you presently have visiting nurse or other home services: No Unable to assess alcohol history related to: Unknown Alcohol intake: never Patient Tobacco Use Status: Current everyday Tobacco user Tobacco use type: Cigarette Cigarettes Per Day: 10 Years Smoked: 30 e-Cigarette/Vaping Use: Never Used Second Hand Smoke Exposure: No Advance Directives Date on File: 09/14/20 service: No Current occupational status: employed Current occupation: [employer] - Right Handed Cognitive needs: No Hearing needs: No Vision needs: No Office Procedures Cardiac Device Check Cardiac Device Check Details: HF monitoring Stable thoracic impedance. [id number] Cardiac Device Interrogation, cardio physiologic monitor Procedure code (CPT) selection complete Assessment & Plan Assessment & Plan (1) ICD (implantable cardioverter-defibrillator) in place: Comment: [facility] single-chamber ICD for primary prevention, implanted 09/18/2020 Code(s): Z95.810 - Presence of automatic (implantable) cardiac defibrillator Plan Orders: Orders AMB Cardiac Device Follow-up 07/28/23 I48.0 - Paroxysmal atrial fibrillation Coding Level of Care Code Procedure Only Diagnoses ICD (implantable cardioverter-defibrillator) in place Z95.810 CPT Codes Cardiac Device Check - Cardiac Device 15: [id number] Cardiac Device Interrogation, cardio physiologic monitor ([id number])
== END ==
PROVIDERS: PCP Nurse Practitioner Family; Visit Provider Internal Medicine Cardiovascular Disease
DX: Z45.02 Encounter for adjustment and management of automatic implantable cardiac defibrillator (principal)
CPT/HCPCS: 93297

== ENCOUNTER → 2023-08-29 07:59 | Outpatient (REF) | payer OTHER, SELFPAY ==
--- NOTE | 2023-08-29 08:02 | CA_ITS ---
Transthoracic Echocardiogram Patient (Last, First, Middle): Chaz Hartmann C Gender: Male Date of : 1975 Age: 48 Procedure Date: 08/29/2023 Procedure Type: Transthoracic Echocardiogram Location: OP Height: 172.72 cm Weight: 104.33 kg BSA: 2.17 m2 Heart Rate: bpm BP: 122 / 80 mmHg Snap Attacher: Referring MD: Tarsha Meade HAZARDOUS WASTE REMOVERShruthi Symptoms: I21.09 - ST elevation (STEMI) myocardial infarction involving other ena... Study Quality: Fair/ Contrast ECG Rhythm: Sinus Conclusions: - Normal left ventricular cavity size. There is mildly increased left ventricular wall thickness. The left ventricular systolic function is moderate to severely decreased. The visually estimated ejection fraction is between 25-30%. - E/E prime ratio is between 8 and 15 consistent with indeterminate filling pressures. - Normal right ventricular cavity size and systolic function. There is an ICD wire seen in the right ventricle. Findings Procedure Information Contrast agent, definity, is being given per protocol without apparent complications. Left Ventricle Normal left ventricular cavity size. There is mildly increased left ventricular wall thickness. The left ventricular systolic function is moderate to severely decreased. The visually estimated ejection fraction is between 25-30%. There is evidence of regional wall motion abnormalities. Abnormal diastolic function is noted. Spectral Doppler is indicative of an impaired relaxation filling pattern. E/E prime ratio is between 8 and 15 consistent with indeterminate filling pressures. Wall Motion Rest Echo Findings The mid inferoseptal and mid anteroseptal segments are hypokinetic. The apical septum is akinetic. The apex segment is dyskinetic. Right Ventricle Normal right ventricular cavity size and systolic function. There is an ICD wire seen in the right ventricle. Atria The left atrium is mildly dilated. Aortic Valve Normal aortic valve structure and function. There is no aortic valve stenosis. There is no aortic valve regurgitation. Mitral Valve The mitral valve appears normal. There is no mitral valve regurgitation. There is no mitral valve stenosis. Pulmonic Valve The pulmonic valve is likely normal. Tricuspid Valve Normal tricuspid valve structure and function. There is no tricuspid valve regurgitation. Normal right atrial pressure. There is no evidence of pulmonary hypertension. Great Vessels All visible segments of the aorta are normal in size. Venous The inferior vena cava is normal in size and collapses greater than 50% with inspiration. Pericardium/Pleural There is no evidence of pericardial effusion. Prior Study Comparison Changes noted compared to prior study dated: 06/07/2021. EF 25 to 30%. Measurements 2D Linear Measurements IVSd: 1.23 0.6-0.9/0.6-1.0 cm LVIDd: 5.26 3.9-5.3/4.2-5.9 cm LVIDd Index: 2.42 2.4-3.2/2.2-3.1 cm/m2 LVIDs: 4.32 2.0-3.6 cm LVPWd: 1.24 0.7-1.1 cm Ao Root: 3.40 2.1-3.5 cm LA Diam: 3.80 2.7-3.8/3.0-4.0 cm LAIDs Index: 1.75 1.5-2.3 cm/m2 LV Mass: 329.01 67-162/88-224 g LV Mass Index: 151.62 43-95/49-115 g/m2 LVOT Diam: 2.00 3.0+(-)1.3 cm 2D Systolic Function EF 4C: 25.60 >55% EF 2C: 17.50 >55% EF BiP: 17.40 >55% Mitral Valve MV Pk E: 0.58 MV PK A: 0.70 MV Decel Time: 147.00 E/A: 0.80 E'Lateral: 7.29 E'Medial: 5.00 E/E' Med: 11.60 E/E' Lat: 7.90 PHT: 43.00 MVA PHT: 5.12 Decel [place]: 3.92 Aortic Valve AoV Pk Jameel: 1.12 AoV Mn Jameel: 0.79 AoV VTI: 0.24 AoV Pk Grad: 5.00 Aov Mn Grad: 3.00 JOLYNN Cont.VTI: 1.52 LVOT LVOT Pk Jameel: 0.61 LVOT Mn Jameel: 0.41 LVOT VTI: 0.12 LVOT Pk Grad: 1.00 LVOT Mn Grad: 1.00 LVOT Diam: 2.00 LVOT Area: 3.14 Diastolic Function MV Pk E: 0.58 MV Pk A: 0.70 E/A: 0.80 E'Medial: 5.00 E/E' Med: 11.60 E' Laterial: 7.29 E/E' Lat: 7.90 Right Ventricle TAPSE (mm): 28.00 TVS' Jameel: 11.00 Tricuspid Valve TR Pk Jameel: 2.21 TR Pk Grad: 20.00 RA Press: 3.00 RVSP: 23.00 Great Vessels Aorta Ao Root-2D: 3.40 2.0-3.7 cm Ao Asc: 3.30 2.1-3.4 cm Pulmonary Valve PV Pk Jameel: 1.21 Peak PV Grad: 6.00 Updated in Other Vendor System with Status of Final Francisco Frederick MD electronically signed on 08/29/2023 10:24:19 PM with status of Final
== END ==
LOC: HO.CARD 07:59
PROVIDERS: PCP Nurse Practitioner Family; Visit Provider Nurse Practitioner Family
DX: I21.09 ST elevation (STEMI) myocardial infarction involving other coronary artery of anterior wall (principal); I25.5 Ischemic cardiomyopathy
CPT/HCPCS: 93306; Q9957

== ENCOUNTER → 2023-08-29 08:02 | Outpatient (BNV) | payer OTHER, SELFPAY | PROVIDERS: PCP Nurse Practitioner Family; Visit Provider Internal Medicine Cardiovascular Disease | DX: I21.09 ST elevation (STEMI) myocardial infarction involving other coronary artery of anterior wall (principal); Z95.810 Presence of automatic (implantable) cardiac defibrillator | CPT/HCPCS: 93306 ==

== ENCOUNTER → 2023-09-03 23:59 | Outpatient (BNV) | payer OTHER, SELFPAY ==
--- NOTE | 2023-10-01 14:25 | A.OFFVIS_ITS ---
Intake Visit Reasons: Remote ICD check- [facility] Allergies No Known Allergies Allergy (Verified 07/18/23 14:44) [facility] Medical History (Updated 07/18/23 @ 17:01 by Tarsha Meade NP-C) Anterior wall myocardial infarction Nocturnal hypoxemia EVETTE (obstructive sleep apnea) Obesity (BMI 30-39.9) ICD (implantable cardioverter-defibrillator) in place HTN (hypertension) CAD (coronary artery disease) Tobacco abuse Ischemic cardiomyopathy NSVT (nonsustained ventricular tachycardia) Surgical History Hx of colonoscopy History of esophagogastroduodenoscopy (EGD) H/O heart artery stent H/O hernia repair H/O knee surgery Family History Other Mental health disorder Social History Household Members: None Housing: House Do you presently have visiting nurse or other home services: No Unable to assess alcohol history related to: Unknown Alcohol intake: never Patient Tobacco Use Status: Current everyday Tobacco user Tobacco use type: Cigarette Cigarettes Per Day: 10 Years Smoked: 30 e-Cigarette/Vaping Use: Never Used Second Hand Smoke Exposure: No Advance Directives Date on File: 09/14/20 service: No Current occupational status: employed Current occupation: [employer] - Right Handed Cognitive needs: No Hearing needs: No Vision needs: No Office Procedures Cardiac Device Check Cardiac Device Check Details: ICD Good battery Multiple episodes of SVT/VT. All episodes are due to sinus tachycardia [id number]-HV Cardiac Device Check, single lead implantable defibrillator Procedure code (CPT) selection complete Assessment & Plan Assessment & Plan (1) Ischemic cardiomyopathy: Code(s): I25.5 - Ischemic cardiomyopathy Category: Medical Plan: Coding Level of Care Code Procedure Only Diagnoses Ischemic cardiomyopathy I25.5 CPT Codes Cardiac Device Check - Cardiac Device 4: 15538-[id number] Cardiac Device Check, single lead implantable defibrillator ([id number])
== END ==
PROVIDERS: PCP Nurse Practitioner Family; Visit Provider Internal Medicine Cardiovascular Disease
DX: I47.10 Supraventricular tachycardia, unspecified (principal); Z95.810 Presence of automatic (implantable) cardiac defibrillator
CPT/HCPCS: 93295

== ENCOUNTER → 2023-12-07 23:59 | Outpatient (BNV) | payer OTHER, SELFPAY ==
--- NOTE | 2023-12-26 19:33 | A.OFFVIS_ITS ---
Intake Visit Reasons: Remote IC check- [facility] Allergies No Known Allergies Allergy (Verified 12/22/23 11:53) [facility] Medical History Anterior wall myocardial infarction Nocturnal hypoxemia EVETTE (obstructive sleep apnea) Obesity (BMI 30-39.9) ICD (implantable cardioverter-defibrillator) in place HTN (hypertension) CAD (coronary artery disease) Tobacco abuse Ischemic cardiomyopathy NSVT (nonsustained ventricular tachycardia) Surgical History Hx of colonoscopy History of esophagogastroduodenoscopy (EGD) H/O heart artery stent H/O hernia repair H/O knee surgery Family History Other Mental health disorder Social History Household Members: None Housing: House Do you presently have visiting nurse or other home services: No Unable to assess alcohol history related to: Unknown Alcohol intake: never Patient Tobacco Use Status: Current everyday Tobacco user Tobacco use type: Cigarette Cigarettes Per Day: 10 Years Smoked: 30 e-Cigarette/Vaping Use: Never Used Second Hand Smoke Exposure: No Advance Directives Date on File: 09/14/20 service: No Current occupational status: employed Current occupation: [employer] - Right Handed Cognitive needs: No Hearing needs: No Vision needs: No Office Procedures Cardiac Device Check Cardiac Device Check Details: ICD Good battery life Episodes of SVT and NSVT recorded. He has been assessed by EP and it appears he had multiple episodes of sinus tachycardia which were recorded as SVT. [id number] Cardiac Device Check, single lead implantable defibrillator Procedure code (CPT) selection complete Assessment & Plan Assessment & Plan (1) ICD (implantable cardioverter-defibrillator) in place: Comment: [employer] single-chamber ICD for primary prevention, implanted 09/18/2020 Code(s): Z95.810 - Presence of automatic (implantable) cardiac defibrillator Category: Medical Plan Coding Level of Care Code Procedure Only Diagnoses ICD (implantable cardioverter-defibrillator) in place Z95.810 CPT Codes Cardiac Device Check - Cardiac Device 4: [id number] Cardiac Device Check, single lead implantable defibrillator ([id number])
== END ==
PROVIDERS: PCP Nurse Practitioner Family; Visit Provider Internal Medicine Cardiovascular Disease
DX: R00.0 Tachycardia, unspecified (principal); Z95.810 Presence of automatic (implantable) cardiac defibrillator
CPT/HCPCS: 93295

== ENCOUNTER 2023-12-20 15:08 | Outpatient (AMB) | payer OTHER, SELFPAY ==
--- NOTE | 2023-12-20 15:19 | MHC.PC.OV ---
Vital Signs 12/20/23 15:20 Height 5 ft 8 in Weight 228 lb 4 oz BMI 34.7 BP 114/82 Blood Pressure Location Lt brachial Position Sitting Pulse 83 Pulse Source Pulse Oximeter Pulse Oximetry (%) 99 Oxygen Delivery Method Room Air Intake Visit Reasons: Annual PE Allergies No Known Allergies Allergy (Verified 12/20/23 17:11) Medication List - Last Reconciled 12/20/23 by NORBERTO Mcgee aspirin (Adult Aspirin Regimen) 81 mg PO DAILY atorvastatin 80 mg PO BEDTIME betamethasone dipropionate 0.05% 1 appl topical DAILY PRN bismuth subsalicylate 2 tabs PO QID blood pressure monitor As directed buspirone 10 mg PO BID 90 days empagliflozin (Jardiance) 10 mg PO DAILY methadone (Methadone Intensol) 22 mg PO DAILY metoprolol succinate ER (Toprol XL) 200 mg PO DAILY 90 days pantoprazole 20 mg PO DAILY sacubitril-valsartan 49-51 mg (Entresto) 1 tab PO BID 90 days semaglutide (weight loss) (Wegovy) 0.25 mg (0.5 mL) subcut QWEEK Tobacco use date assessed: 12/20/23 Dental Screening Dental Screen Date: 12/20/23 Did you have a dental visit in the last 12 months?: Yes Did you have a dental problem in the last 6 months where you did not have access to dental care?: No Was dental information given to patient?: Patient has dentist HPI Annual PE HPI Details Pt is here for a PE. Will order labs. Pt is following up with cardiology. Due for colon screen, will refer to GI. Pt is interested in weight loss. I believe he would be a good candidate for a GLP-1 agonist due to his cardiac history. Will send wegovy. He has tried a exercise program and many diets with minimal success. Pt c/o increased anxiety. He is currently taking buspirone 10mg bid. Will increase this to 15mg bid. Denies any SI and HI. [facility] Medical History Anterior wall myocardial infarction Nocturnal hypoxemia EVETTE (obstructive sleep apnea) Obesity (BMI 30-39.9) ICD (implantable cardioverter-defibrillator) in place HTN (hypertension) CAD (coronary artery disease) Tobacco abuse Ischemic cardiomyopathy NSVT (nonsustained ventricular tachycardia) Surgical History Hx of colonoscopy History of esophagogastroduodenoscopy (EGD) H/O heart artery stent H/O hernia repair H/O knee surgery Family History Other Mental health disorder Social History Household Members: None Housing: House Do you presently have visiting nurse or other home services: No Unable to assess alcohol history related to: Unknown Alcohol intake: never Patient Tobacco Use Status: Current everyday Tobacco user Tobacco use type: Cigarette Cigarettes Per Day: 10 Years Smoked: 30 e-Cigarette/Vaping Use: Never Used Second Hand Smoke Exposure: No Advance Directives Date on File: 09/14/20 service: No Current occupational status: employed Current occupation: [employer] - Right Handed Cognitive needs: No Hearing needs: No Vision needs: No Questionnaire PHQ-9 Over the last 2 weeks, how often have you been bothered by any of the following problems? 1. Little interest or pleasure in doing things: not at all 2. Feeling down, depressed, or hopeless: not at all 3. Trouble falling or staying asleep, or sleeping too much: more than half the days 4. Feeling tired or having little energy: more than half the days 5. Poor appetite or overeating: several days 6. Feeling bad about yourself - or that you are a failure or have let yourself or your family down: not at all 7. Trouble concentrating on things, such as reading the newspaper or watching television: several days 8. Moving or speaking so slowly that other people could have noticed. Or the opposite - being so fidgety or restless that you have been moving around a lot more than usual: several days 9. Thoughts that you would be better off or of hurting yourself in some way: not at all Total score: 7 Depression Screening Interpretation: Negative Depression Screening Done: Yes 18171 - PHQ-9 Billing: Yes Source: Developed by Drs. Fabiano L. Carolina Varner, Glen Hu and colleagues, with an educational aaliyah from [employer]. Thrive Questionnaire Date Thrive assessed: 12/20/23 I am a: Patient What is your living situation today?: I have a steady place to live Within the past 12 months, did the food you bought not last and you didn't have the money to get more?: Never true Within the past 12 months, did you worry whether your food would run out before you got money to buy more?: Never true Do you have trouble paying for medicines?: No Do you have trouble getting transportation to medical appointments?: No Do you have trouble paying your heating and electricity bill?: No Do you have trouble taking care of your child, family member or friend?: No Do you have trouble with day-to-day activities such as bathing, preparing meals, shopping, managing finances, etc.?: No Are you currently unemployed and looking for a job?: No Are you interested in more education?: No Please select the resources that you would like help with: None Currently or been in a relationship where the following occur: No concerns reported THRIVE Score: 0 AUDIT C Alcohol Use Questionnaire (AUDIT-C) 1. How often do you have a drink containing alcohol?: Never 3. How often do you have six or more drinks on one occasion?: Never Total Score: 0 VERONICA-7 AMB Questionnaire VERONICA-7 Date VERONICA - 7 assessed: 12/20/23 Feeling nervous, anxious, or on edge: 1 = Several days Not being able to stop or control worryin = Not at all Worrying too much about different things: 0 = Not at all Trouble relaxin = Several days Being so restless that it is hard to sit still: 1 = Several days Becoming easily annoyed or irritable: 0 = Not at all Feeling afraid as if something awful might happen: 0 = Not at all Total VERONICA-7 score (0-4 normal; 5-9 mild; 10-14 moderate; 15-21 severe): 3 Source: Developed by Carolina Neville, Glen Hu and colleagues, with an educational aaliyah from [employer]. VERONICA-7 Assessment Billing VERONICA-7 Assessment Tool: VERONICA-7 Assessment 92374 Review of Systems Const Denies chills and Denies fever(s) Eyes Denies blurry vision ENT Denies vertigo, Denies dizziness and Denies sore throat Card Denies chest pain at rest, Denies chest pain with activity, Denies diaphoresis, Denies dyspnea and Denies dyspnea on exertion Resp Denies cough, Denies dyspnea, Denies dyspnea on exertion and Denies wheezing GI Denies abdominal pain, Denies melena, Denies hematochezia, Denies constipation, Denies diarrhea and Denies loose stools Denies hematuria Musc Denies numbness and Denies tingling Skin/Breast Denies lesions Neuro Denies vertigo, Denies dizziness, Denies numbness and Denies tingling Psych Reports anxiety, Denies depression, Denies homicidal ideation, Denies suicidal ideation and Denies other (substance abuse) Aller/Immun Denies wheezing Physical exam (Primary Care) Vital Signs: Last Vital Signs Pulse 83 12/20/23 15:20 BP 114/82 12/20/23 15:20 Pulse Ox 99 12/20/23 15:20 Oxygen Delivery Method Room Air 12/20/23 15:20 BMI result Body Mass Index 34.7 Tobacco/Smoking Status: Tobacco use Status Tobacco use date assessed 12/20/23 12/20/23 15:25 Patient Tobacco Use Status Current everyday Tobacco 12/20/23 15:25 Tobacco use type Cigarette 12/20/23 15:25 e-Cigarette/Vaping Use Never Used 12/20/23 15:25 PHQ-9: PHQ-9 Score PHQ-9: Total score 7 12/20/23 15:41 Depression Screening Interpretation: Negative Thrive Assessment: Date of Thrive Assessment Date Thrive assessed 12/20/23 12/20/23 15:25 Currently or been in a relationship where the following occur: No concerns reported Const General: cooperative Nutritional Appearance: well nourished Orientation/consciousness: patient oriented x3 HENMT Head: Yes normal to inspection, Yes normocephalic and Yes atraumatic Ears: TM's normal bilaterally Eyes General: appearance normal, both eyes and all related structures Alignment and Position: alignment normal and position normal Neck Neck: Yes normal visual inspection, Yes no lymphadenopathy and Yes supple Resp Effort & Inspection: normal respiratory effort Auscultation: clear to auscultation bilaterally Cardio Rate: regular rate Rhythm: regular rhythm Heart sounds: S1 normal heart sound present, S2 normal heart sound present and no murmurs GI Palpation (GI): Soft to palpation and nontender Auscultation: normal bowel sounds Male General Exam: Yes normal external exam Penis: normal penis Scrotum: scrotum normal, testes descended bilaterally and no inguinal hernias Testes: no testicular mass Skin Rashes: no rashes Neuro General: patient oriented x3, moves all extremities, no focal motor deficits and deep tendon reflexes 2+ bilaterally Romberg Test: Negative Psych Appearance: grossly normal Mental Status: mental status grossly normal Speech and movement: Normal speech and movement present Affect: normal affect Attitude: cooperative Thought process: Normal thought process present Thought content: Normal thought content present Insight: Good insight present (Psych) Judgement: Good judgement present (Psych) Assessment and Plan Assessment & Plan (1) Physical exam: Code(s): Z00.00 - Encounter for general adult medical examination without abnormal findings Plan: Labs ordered (2) Screening for colon cancer: Code(s): Z12.11 - Encounter for screening for malignant neoplasm of colon Plan: Referred to GI (3) Smoker: Code(s): F17.200 - Nicotine dependence, unspecified, uncomplicated (4) Obesity: Code(s): E66.9 - Obesity, unspecified Plan: encouraged to quit Plan The patient agreed to the use of a medical donation professional for this encounter. Scribed for SHARMAINE Abrams- by Kavita Hammonds medical donation professional, on 12/20/2023 at 15:40 EST. Orders: Orders Comprehensive [place]. Panel Fast Today Z00.00 - Encounter for general adult medical examination without abnormal findings TSH reflex Free T4 Today Z00.00 - Encounter for general adult medical examination without abnormal findings Lipid Panel Today Z00.00 - Encounter for general adult medical examination without abnormal findings Hepatitis A,B,C Profile Today Z00.00 - Encounter for general adult medical examination without abnormal findings Complete Blood Count Auto Diff Today Z00.00 - Encounter for general adult medical examination without abnormal findings UA CC w/rflx Micro + Cult Today Z00.00 - Encounter for general adult medical examination without abnormal findings Referrals Gastroenterology Referral Z12.11 - Encounter for screening for malignant neoplasm of colon Medications: New semaglutide (weight loss) (Timur) administer weeks 1 through 4 of therapy 0.25 mg (0.5 mL) subcut QWEEK 2 mL 0RF Changed From buspirone 10 mg PO BID 90 days 180 tabs 1RF To buspirone 15 mg PO BID 90 days 180 tabs 1RF Coding Level of Care Code Est Pt Prev Care 40-64y(84460) Diagnoses Physical exam Z00.00 Screening for colon cancer Z12.11 Smoker F17.200 Obesity E66.9 Additional Codes VERONICA-7 Assessment Billing - VERONICA-7 Assessment Tool: VERONICA-7 Assessment 75122 ([id number])
[2023-12-20 15:20] VITALS: BP 114/82; PULSE 83; O2SAT 99; BMI 34.7
== END 2023-12-20 16:33 | disposition home or self-care (01) ==
PROVIDERS: Visit Provider Nurse Practitioner Family
DX: Z00.00 Encounter for general adult medical examination without abnormal findings (principal); Z12.11 Encounter for screening for malignant neoplasm of colon; E66.9 Obesity, unspecified; Z68.34 Body mass index [BMI] 34.0-34.9, adult; F17.210 Nicotine dependence, cigarettes, uncomplicated
CPT/HCPCS: 99396

== ENCOUNTER 2023-12-21 07:16 | Outpatient (REF) | payer OTHER, SELFPAY ==
[2023-12-21 10:01] LABS: MANUAL DIFF FLAG NO
[2023-12-21 10:04] LABS: Appearance Urine Clear; Color Urine Yellow; Glucose Urine UA >=1000 mg/dL (Negative); Leukocyte Esterase Urine Negative (Negative); Nitrite Urine Negative (Negative); PH 5.5 (5.0-9.0); Specific Gravity - Urine >= 1.030 (1.005-1.025); UMIC TRIGGER UACC YES; Urine Blood Negative (Negative); Urine Ketones Trace mg/dL (Negative); Urine Protein Trace mg/dL (Neg-Trace)
[2023-12-21 10:06] LABS: Basophils Percent Auto 0.5 % (0-2); Eosinophils Absolute Auto 0.2 X10*3/uL (0.0-0.4); Eosinophils Percent Auto 2.1 % (0-4); Hematocrit 43.7 % (42.0-52.0); Hemoglobin 15.2 g/dl (14.0-18.0); Imm Gran Abs Auto 0.03 X10*3/uL (0.00-0.03); Imm Gran Pct Auto 0.4 % (0.0-0.4); Lymphocytes Percent Auto 26.3 % (20-40); Mean Corpuscular HGB Conc 34.8 g/dl (31.0-36.0); Mean Corpuscular Hemoglobin 32.8 pg (27.0-33.0); Mean Corpuscular Volume 94.2 fL (80.0-98.0); Mean Platelet Volume 10.8 fL (9.4-12.4); Monocytes Absolute Auto 0.7 X10*3/uL (0.1-1.2); Monocytes Percent Auto 8.5 % (2-11); Neutrophils Absolute Auto 4.8 x10*3/uL (2.0-8.3); Neutrophils Percent Auto 62.2 % (45-73); Platelet Count 229 X10*3/uL (160-400); Red Blood Count 4.64 X10*6/uL (4.60-5.80); White Blood Count 7.7 X10*3/uL (4.8-10.8)
[2023-12-21 10:11] LABS: Bacteria Urine None Seen (None Seen); Hyaline Casts Urine 0-2 /LPF (0-2); RBC Urine 0-2 /HPF (0-2); Squamous Epithelial Cell Urine 0-2 /HPF (0-2); WBC Urine 0-5 /HPF (0-5)
[2023-12-21 10:32] LABS: Alanine Aminotransferase 50 U/L (0-40); Albumin Level 4.2 g/dL (3.5-5.0); Alkaline Phosphatase 67 U/L (39-117); Anion Gap 15 (12-20); Aspartate Amino Transferase 37 U/L (5-37); Bilirubin Total 1.3 mg/dL (0.0-1.0); Blood Urea Nitrogen 10 mg/dL (9-16); Calcium 9.3 mg/dL (8.4-10.2); Carbon Dioxide 23 mmol/L (22-29); Chloride 107 mmol/L (96-108); Cholesterol 157 mg/dL (<200); Estimated Glomerular Filt Rate > 60; Glucose Fasting 105 mg/dL (60-99); HDL Cholesterol 48 mg/dL (>40); LDL Cholesterol Calculated 63 mg/dL (<100); Potassium 3.2 mmol/L (3.3-5.1); Sodium 142 mmol/L (135-145); Triglycerides 230 mg/dL (<150)
[2023-12-21 10:37] LABS: TSH reflex Free T4 1.86 uIU/mL (0.32-4.0)
[2023-12-21 10:42] LABS: HBS Num1 0.24 mIU/mL (0-7.99); HBc Num1 5.18 S/CO (0.00-0.79); ~Hepatitis A Antibody IgM Nonreactive (Nonreactive); ~Hepatitis B Surface Antibody NONREACTIVE (Nonreactive); ~Hepatitis C Antibody Nonreactive (Nonreactive)
[2023-12-21 12:23] LABS: HBc Num2 4.92 S/CO; HBc Num3 5.25 S/CO; Hepatitis B Core Antibody Reactive (Nonreactive)
[2023-12-21 12:24] LABS: HBsAGNum2 Reactive; HBsAGNum3 Reactive; Hepatitis B Surface Antigen Retest CNFM (Negative)
[2023-12-22 18:43] LABS: Hepatitis B Core Antibody IgM NON-REACTIVE (NON-REACTIVE)
== END 2023-12-21 07:17 | disposition home or self-care (01) ==
LOC: HO.HMGCLDS 07:16
PROVIDERS: PCP Nurse Practitioner Family; Visit Provider Nurse Practitioner Family
DX: Z00.00 Encounter for general adult medical examination without abnormal findings (principal)
CPT/HCPCS: 36415; 80053; 80061; 81001; 81003; 84443; 85025; 86704; 86705; 86706; 86709; 86803; 87340

== ENCOUNTER 2023-12-22 11:52 | Outpatient (AMB) | payer OTHER, SELFPAY ==
--- NOTE | 2023-12-22 11:52 | MHC.OFFVIS ---
Intake Visit Reasons: Discuss Colonoscopy Intake Note: Chaz presents as a telehealth today to discuss colonoscopy. CC: He states that he is having pains in the stomach. He states that he was dianogsied with H Pylori but was never treated antibiotics. Allergies No Known Allergies Allergy (Verified 12/22/23 11:53) HPI Comments Details: He has background history of coronary artery disease with previous anterior [place] and ischemic cardiomyopathy with EF 30-35% status post ICD placement who is coming in for abdominal pain. Patient reports that around 2 months ago he started noticing postprandial pain that would last a few hours starting in epigastrium and eventually settling in RUQ. No nausea or vomiting. No change in appetite or weight. Pt has actually been gaining weight. Gallbladder in situ. Has been taking PPI for 2 weeks and does note some improvement in sx. Smokes 1/2 PPD, rare etOH use. No NSAID use. Last cocaine use for 6 years ago, before his ACS. Pt has previously been told he has chronic hepatitis B but that he doesnt need any treatment. Last EGD/colonoscopy was 2017 but pt does not recall where. EGD 09/29/21 (Dr Menjivar) Larynx:normal Esophagus: GE junction at 40? cm, diaphragm hiatus at 40 cm, no varices or esophagitis, bx taken from distal esophagus Stomach: Patchy gastric erythema. Biopsies were obtained. Grade 2 flap valve on retroflexed examination of the cardia. Good peristalsis noted. Duodenum: Normal bulb and descending duodenum, bx taken Path: A.? Duodenum, biopsy:? Small intestinal mucosa within normal limits. B.? Stomach, biopsy: - Antral-type and oxyntic mucosa with moderate chronic, focally active, inflammation. - Rare forms suspicious for H pylori identified. C.? Esophagus, distal, biopsy:? Squamous mucosa within normal limits; no inflammation seen. 10/04/22: EGD and path reveiwed with the pt. He was counseled that given how ubiquitous H pylori is, unlikely to be causing his sx of abdominal discomfort and this more likely due to intermittent NSAID use and smoking. However, he prefers treatment for H pylori which will be prescribed today. Otherwise, sx well controlled on once daily PPI, no esophagitis noted on EGD. 12/22/2023: Patient being seen as tele visit follow-up after a year. Reports had not taken the quadruple therapy for H pylori yet. Plans to start it in the cold or season, as would like to avoid going in the sun while he has taking the tetracycline. Otherwise, no acute issues. PCP has also requested colonoscopy. Patient had colonoscopy with Dr. Baez office in 2017. Reports repeat was recommended in 5 years due to his unknown family history, parents in their 50s. [facility] Medical History Anterior wall myocardial infarction Nocturnal hypoxemia EVETTE (obstructive sleep apnea) Obesity (BMI 30-39.9) ICD (implantable cardioverter-defibrillator) in place HTN (hypertension) CAD (coronary artery disease) Tobacco abuse Ischemic cardiomyopathy NSVT (nonsustained ventricular tachycardia) Surgical History Hx of colonoscopy History of esophagogastroduodenoscopy (EGD) H/O heart artery stent H/O hernia repair H/O knee surgery Family History Other Mental health disorder Social History Household Members: None Housing: House Do you presently have visiting nurse or other home services: No Unable to assess alcohol history related to: Unknown Alcohol intake: never Patient Tobacco Use Status: Current everyday Tobacco user Tobacco use type: Cigarette Cigarettes Per Day: 10 Years Smoked: 30 e-Cigarette/Vaping Use: Never Used Second Hand Smoke Exposure: No Advance Directives Date on File: 09/14/20 service: No Current occupational status: employed Current occupation: [employer] - Right Handed Cognitive needs: No Hearing needs: No Vision needs: No Review of Systems Const All systems reviewed & are unremarkable except as noted in HPI and below Physical Exam Vital Signs: Video visit: No apparent distress Speaking in full sentences No overt respiratory distress No facial asymmetry or dysarthria Telehealth Telehealth Telehealth Platform: [employer] Location of provider rendering services: practice address Location of patient: address on file Patient Identification confirmed using: Name, : Yes Telehealth method: video Patient verbally consented to treatment: Yes Patient verbally consented to billing insurance company: Yes Patient informed of any privacy concerns related to visit: Yes Minutes spent on Phone/Video with Pt.: 6 Assessment & Plan Assessment & Plan (1) Abdominal pain: Code(s): R10.9 - Unspecified abdominal pain Category: Medical (2) Smoker: Code(s): F17.200 - Nicotine dependence, unspecified, uncomplicated Category: Social Hx (3) H. pylori infection: Code(s): A04.8 - Other specified bacterial intestinal infections Category: Medical (4) Screening for colon cancer: Code(s): Z12.11 - Encounter for screening for malignant neoplasm of colon Category: Medical Plan Treatment for H pylori gastritis pending from last visit. Antibiotics were prescribed. Instructions reviewed again. Plan: - 14 days of quad therapy (should not start any of these until has ALL 4 meds filled) : Omeprazole 40mg BID Tetracycline 500mg 4 times a day (avoid sunburn while taking) Metronidazole 250mg 4 times a day? (avoid all alcohol while taking, can take with food to avoid nausea) Bismuth Subsalicylate 524mg 4 times a day (may turn stools black) - he plans to start this in January. Pt will return for H pylori breath test 2-3 weeks after completion of therapy. - Smoking cessation counseling - Avoid NSAIDs For colorectal cancer screening, he prefers to review scheduling colonoscopy at the next visit. Follow-up in 3 months as per patient's preference. Medications: New tetracycline 500 mg PO QID 14 days 56 caps 0RF omeprazole 20 mg PO BID 14 days 28 caps 0RF A04.8 - Other specified bacterial intestinal infections metronidazole 250 mg PO QID 14 days 56 tabs 0RF bismuth subsalicylate 2 tabs PO QID 14 days 112 tabs 0RF Coding Level of Care Code Tele Est Pt Level 3 (20993) Diagnoses Abdominal pain R10.9 Smoker F17.200 H. pylori infection A04.8 Screening for colon cancer Z12.11
== END 2023-12-22 14:01 | disposition home or self-care (01) ==
LOC: HO.HGI 11:52
PROVIDERS: PCP Nurse Practitioner Family; Visit Provider Internal Medicine
DX: R10.9 Unspecified abdominal pain (principal); F17.200 Nicotine dependence, unspecified, uncomplicated; A04.8 Other specified bacterial intestinal infections; Z12.11 Encounter for screening for malignant neoplasm of colon
CPT/HCPCS: 99213

== ENCOUNTER → 2023-12-22 11:52 | Outpatient (BNVA) | payer OTHER, SELFPAY | PROVIDERS: PCP Nurse Practitioner Family; Visit Provider Internal Medicine ==

== ENCOUNTER 2024-01-12 14:10 | Outpatient (AMB) | payer OTHER, SELFPAY ==
[2024-01-12 14:16] VITALS: BP 120/64; PULSE 78; BMI 34.9
--- NOTE | 2024-01-12 14:16 | A.OFFVIS_ITS ---
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 Accompanied by: Self / Same As Patient Allergies No Known Allergies Allergy (Verified 12/22/23 11:53) Medication List - Last Reconciled 01/12/24 by SAIMA Thompson aspirin (Adult Aspirin Regimen) 81 mg PO DAILY atorvastatin 80 mg PO BEDTIME betamethasone dipropionate 0.05% 1 appl topical DAILY PRN bismuth subsalicylate 2 tabs PO QID 14 days blood pressure monitor As directed buspirone 15 mg PO BID 90 days empagliflozin (Jardiance) 10 mg PO DAILY methadone (Methadone Intensol) 22 mg PO DAILY metoprolol succinate ER (Toprol XL) 200 mg PO DAILY 90 days metronidazole 250 mg PO QID 14 days omega-3 acid ethyl esters 1 cap PO BID 30 days omeprazole 20 mg PO BID 14 days pantoprazole 20 mg PO DAILY sacubitril-valsartan 49-51 mg (Entresto) 1 tab PO BID 90 days semaglutide (weight loss) (Wegovy) 0.25 mg (0.5 mL) subcut QWEEK tetracycline 500 mg PO QID 14 days HPI HPI 6 mth f/up: Details: Chaz is a 48-year-old male with past medical history of hypertension, hyperlipidemia, CAD, anterior wall AR 12/2017 with proximal LAD stent placed, ischemic cardiomyopathy status post ICD who presents for follow-up. Today he reports he has been feeling well overall. He describes having 1 episode left shoulder and arm numbness during the night that caused him some concern. He recalls the symptom being resolve when he woke up. No concerning chest discomfort at rest or with activity. He gets mildly short of breath and fatigued with exertional activities. No PND, orthopnea or edema. No lightheadedness, presyncope, syncope, falls. No ICD shocks. Taking all meds as directed. Working full-time. [facility] Medical History Anterior wall myocardial infarction Nocturnal hypoxemia EVETTE (obstructive sleep apnea) Obesity (BMI 30-39.9) ICD (implantable cardioverter-defibrillator) in place HTN (hypertension) CAD (coronary artery disease) Tobacco abuse Ischemic cardiomyopathy NSVT (nonsustained ventricular tachycardia) Surgical History Hx of colonoscopy History of esophagogastroduodenoscopy (EGD) H/O heart artery stent H/O hernia repair H/O knee surgery Family History Other Mental health disorder Social History Household Members: None Housing: House Do you presently have visiting nurse or other home services: No Unable to assess alcohol history related to: Unknown Alcohol intake: never Patient Tobacco Use Status: Current everyday Tobacco user Tobacco use type: Cigarette Cigarettes Per Day: 10 Years Smoked: 30 e-Cigarette/Vaping Use: Never Used Second Hand Smoke Exposure: No Advance Directives Date on File: 09/14/20 service: No Current occupational status: employed Current occupation: [employer] - Right Handed Cognitive needs: No Hearing needs: No Vision needs: No Review of Systems Const All systems reviewed & are unremarkable except as noted in HPI and below Card Denies chest pain, Denies chest pain at rest, Denies chest pain with activity, Denies rapid heart rate, Denies irregular heart rhythm, Denies lightheadedness, Denies dyspnea, Denies dyspnea on exertion and Denies orthopnea Resp Denies dyspnea and Denies dyspnea on exertion GI Denies no additional complaints Musc Details: Episode of left shoulder and arm numbness Physical Exam Vital Signs: Last Vital Signs Pulse 78 01/12/24 14:16 BP 120/64 01/12/24 14:16 BMI result Body Mass Index 34.9 Const General: cooperative, healthy appearing, comfortable and no acute distress Orientation/consciousness: patient oriented x3 Neck Neck: Yes normal visual inspection and Yes no JVD Resp Effort & Inspection: normal respiratory effort Auscultation: clear to auscultation bilaterally, no rales, no rhonchi and no wheezes Cardio Jugular venous distension: no JVD Rate: regular rate Rhythm: regular rhythm Heart sounds: S1 normal heart sound present, S2 normal heart sound present, no murmurs and no rubs Neuro General: patient oriented x3 Extrem General: Yes normal to inspection and No no pedal edema Psych Appearance: grossly normal Mental Status: mental status grossly normal Speech and movement: Normal speech and movement present Office Procedures Cardiac Device Check Cardiac Device Check Details: [employer] single-chamber ICD interrogation, battery 7.1-7.6 years, VVI mode with low rate 40, V paced less than 1%, VT/VF therapies reviewed, brief episodes SVT, nonsustained tachycardia, last episode 11/27/2023 lasting 6 seconds, longest recent SVT 1 minute 51 seconds, October 2023. [id number] Cardiac Device Check, single lead implantable defibrillator Procedure code (CPT) selection complete Assessment & Plan Assessment & Plan (1) Anterior wall myocardial infarction: Comment: 12/2017 STEMI, ANTONIETA to proximal LAD Code(s): I21.09 - ST elevation (STEMI) myocardial infarction involving other coronary artery of anterior wall Category: Medical Plan: History of anterior wall AR 12/2017. ANTONIETA to the LAD at that time. He has residual ischemic cardiomyopathy. Last known EF 25 to 30%. He has a single lead ICD in place. He feels well overall. He describes 1 episode of left shoulder and arm numbness during the night which caused him some concern. He recalls a similar feeling at the time of his AR. No chest discomfort.hest discomfort. Last nuclear stress test was done on 12/03/2021 showing a large anterior wall AR with minimal cass-infarct ischemia. EKG done last visit showed sinus rhythm with old anterior/septal infarct, rate 86 His last echocardiogram was 08/29/2023 showing EF 25-30%, wall motion abnormality suggesting ischemic cardiomyopathy, normal valves. Will continue on aspirin indefinitely. Continue atorvastatin with ideal LDL goal less than 70. Labs done on 12/21/2023 showed LDL 63. His triglycerides were elevated at 230 and his PCP started him on [place] 3. Continue metoprolol and Entresto for neurohormonal modulation. Recent labs showed creatinine 0.74, potassium 3.2. Blood pressure is well controlled. Signs and symptoms of angina reviewed. If he has recurrent issues with left arm numbness and any chest discomfort will plan for a nuclear stress test. Emergency care if ever needed for concerning symptoms. Cardiology follow-up 6 months, sooner if needed. (2) Ischemic cardiomyopathy: Code(s): I25.5 - Ischemic cardiomyopathy Category: Medical Plan: Last echo with EF 25-30 %. Has ICD for primary prevention. Euvolemic on examination today. Ongoing medical management with Entresto, metoprolol for neurohormonal modulation. Signs and symptoms of heart failure reviewed (3) ICD (implantable cardioverter-defibrillator) in place: Comment: [employer] single-chamber ICD for primary prevention, implanted 09/18/2020 Code(s): Z95.810 - Presence of automatic (implantable) cardiac defibrillator Category: Medical Plan: Single-chamber ICD in place. Office interrogation today shows device is functioning normally. Short runs of SVT, none since 11/27/23. He has remote monitoring in use. Next office interrogation in 6 months (4) HTN (hypertension): Code(s): I10 - Essential (primary) hypertension Category: Medical Plan: Normal range today. No med changes made Plan Time spent on chart review, documentation, interview and assessment Coding Level of Care Code Est Pt Level 4 (08207) Diagnoses Anterior wall myocardial infarction I21.09 Ischemic cardiomyopathy I25.5 ICD (implantable cardioverter-defibrillator) in place Z95.810 HTN (hypertension) I10 CPT Codes Cardiac Device Check - Cardiac Device 4: [id number] Cardiac Device Check, single lead implantable defibrillator ([id number]) Time Spent (min) 30
== END 2024-01-12 15:05 | disposition home or self-care (01) ==
PROVIDERS: PCP Nurse Practitioner Family; Visit Provider Nurse Practitioner Family
DX: I21.09 ST elevation (STEMI) myocardial infarction involving other coronary artery of anterior wall (principal); I25.5 Ischemic cardiomyopathy; Z95.810 Presence of automatic (implantable) cardiac defibrillator; I10 Essential (primary) hypertension
CPT/HCPCS: 93282; 99214

== ENCOUNTER → 2024-01-12 14:10 | Outpatient (BNVA) | payer OTHER, SELFPAY | PROVIDERS: PCP Nurse Practitioner Family; Visit Provider Nurse Practitioner Family ==

== ENCOUNTER → 2024-03-07 23:59 | Outpatient (BNV) | payer OTHER, SELFPAY ==
--- NOTE | 2024-03-16 20:11 | MHC.OFFVIS ---
Intake Visit Reasons: Remote ICD check- [facility] Allergies No Known Allergies Allergy (Verified 12/22/23 11:53) [facility] Medical History Anterior wall myocardial infarction Nocturnal hypoxemia EVETTE (obstructive sleep apnea) Obesity (BMI 30-39.9) ICD (implantable cardioverter-defibrillator) in place HTN (hypertension) CAD (coronary artery disease) Tobacco abuse Ischemic cardiomyopathy NSVT (nonsustained ventricular tachycardia) Surgical History Hx of colonoscopy History of esophagogastroduodenoscopy (EGD) H/O heart artery stent H/O hernia repair H/O knee surgery Family History Other Mental health disorder Social History Household Members: None Housing: House Do you presently have visiting nurse or other home services: No Unable to assess alcohol history related to: Unknown Alcohol intake: never Patient Tobacco Use Status: Current everyday Tobacco user Tobacco use type: Cigarette Cigarettes Per Day: 10 Years Smoked: 30 e-Cigarette/Vaping Use: Never Used Second Hand Smoke Exposure: No Advance Directives Date on File: 09/14/20 service: No Current occupational status: employed Current occupation: [employer] - Right Handed Cognitive needs: No Hearing needs: No Vision needs: No Office Procedures Cardiac Device Check Cardiac Device Check Details: ICD Good battery life No therapies by device. 4 episodes of SVT >150 beats/min. These have been discussed with EP and are episodes of sinus tachycardia. [id number] Cardiac Device Check, single lead implantable defibrillator Procedure code (CPT) selection complete Assessment & Plan Assessment & Plan (1) ICD (implantable cardioverter-defibrillator) in place: Comment: [employer] single-chamber ICD for primary prevention, implanted 09/18/2020 Code(s): Z95.810 - Presence of automatic (implantable) cardiac defibrillator Category: Medical Plan: Coding Level of Care Code Procedure Only Diagnoses ICD (implantable cardioverter-defibrillator) in place Z95.810 CPT Codes Cardiac Device Check - Cardiac Device 4: [id number] Cardiac Device Check, single lead implantable defibrillator ([id number])
== END ==
PROVIDERS: PCP Nurse Practitioner Family; Visit Provider Internal Medicine Cardiovascular Disease
DX: I47.10 Supraventricular tachycardia, unspecified (principal); Z95.810 Presence of automatic (implantable) cardiac defibrillator
CPT/HCPCS: 93295

== ENCOUNTER → 2024-06-06 23:59 | Outpatient (BNV) | payer OTHER, SELFPAY ==
--- NOTE | 2024-07-17 08:27 | MHC.OFFVIS ---
Intake Visit Reasons: Remote ICD check- [employer] Allergies No Known Allergies Allergy (Verified 06/24/24 15:34) PFSH Medical History Anterior wall myocardial infarction Nocturnal hypoxemia EVETTE (obstructive sleep apnea) Obesity (BMI 30-39.9) ICD (implantable cardioverter-defibrillator) in place HTN (hypertension) CAD (coronary artery disease) Tobacco abuse Ischemic cardiomyopathy NSVT (nonsustained ventricular tachycardia) Surgical History Hx of colonoscopy History of esophagogastroduodenoscopy (EGD) H/O heart artery stent H/O hernia repair H/O knee surgery Family History Other Mental health disorder Social History Household Members: None Housing: House Do you presently have visiting nurse or other home services: No Unable to assess alcohol history related to: Unknown Alcohol intake: never Patient Tobacco Use Status: Current everyday Tobacco user Tobacco use type: Cigarette Cigarettes Per Day: 10 Years Smoked: 30 e-Cigarette/Vaping Use: Never Used Second Hand Smoke Exposure: No Advance Directives Date on File: 09/14/20 service: No Current occupational status: employed Current occupation: [employer] - Right Handed Cognitive needs: No Hearing needs: No Vision needs: No Office Procedures Cardiac Device Check Cardiac Device Check Details: ICD Good battery. No new alerts. [id number]-[id number] Cardiac Interrogation, implant defibrillator w/interim Procedure code (CPT) selection complete Assessment & Plan Assessment & Plan (1) ICD (implantable cardioverter-defibrillator) in place: Comment: [employer] single-chamber ICD for primary prevention, implanted 09/18/2020 Code(s): Z95.810 - Presence of automatic (implantable) cardiac defibrillator Category: Medical Plan Coding Level of Care Code Procedure Only Diagnoses ICD (implantable cardioverter-defibrillator) in place Z95.810 CPT Codes Cardiac Device Check - Cardiac Device 13: 52500-Hpkiua Cardiac Interrogation, implant defibrillator w/interim ([id number])
== END ==
PROVIDERS: PCP Nurse Practitioner Family; Visit Provider Internal Medicine Cardiovascular Disease
DX: Z45.02 Encounter for adjustment and management of automatic implantable cardiac defibrillator (principal)
CPT/HCPCS: 93295

== ENCOUNTER 2024-06-24 15:22 | Outpatient (AMB) | payer OTHER, SELFPAY ==
[2024-06-24 15:34] VITALS: BP 134/90; PULSE 74
--- NOTE | 2024-06-24 15:34 | MHC.OFFVIS ---
Vital Signs 06/24/24 15:34 Height 5 ft 8 in BP 134/90 H Blood Pressure Location Lt brachial Position Sitting Pulse 74 Pulse Source Monitor Intake Visit Reasons: follow up w/device ck Side Show Entertainer Required: No Allergies No Known Allergies Allergy (Verified 06/24/24 15:34) Medication List - Last Reconciled 06/24/24 by Tarsha Meade NP-C aspirin (Adult Aspirin Regimen) 81 mg PO DAILY atorvastatin 80 mg PO BEDTIME betamethasone dipropionate 0.05% 1 appl topical DAILY PRN bismuth subsalicylate 2 tabs PO QID 14 days blood pressure monitor As directed buspirone 15 mg PO BID 90 days empagliflozin (Jardiance) 10 mg PO DAILY methadone (Methadone Intensol) 22 mg PO DAILY metoprolol tartrate 150 mg (1.5 x 100 mg) PO BID 30 days omega-3 acid ethyl esters 1 cap PO BID omeprazole 20 mg PO BID 14 days sacubitril-valsartan 49-51 mg (Entresto) 1 tab PO BID 90 days HPI HPI follow up w/device ck: Details: Chaz is a 49-year-old male with past medical history of hypertension, hyperlipidemia, CAD, anterior wall TX 12/2017 with proximal LAD stent placed, ischemic cardiomyopathy status post ICD, SVT who presents for follow-up. Today he reports he has been noticing rapid heart palpitations. He also feels like he has drank a lot of caffeine but actually has not. He does have anxiety about his condition which is not new. No concerning chest discomfort at rest or with activity. He gets mildly short of breath and fatigued with exertional activities which is not new. No PND, orthopnea or edema. No lightheadedness, presyncope, syncope, falls. No ICD shocks. Tells me he has been taking Entresto only once a day. Takes his daily meds in the morning only. Working full-time at [employer] Medical History Anterior wall myocardial infarction Nocturnal hypoxemia EVETTE (obstructive sleep apnea) Obesity (BMI 30-39.9) ICD (implantable cardioverter-defibrillator) in place HTN (hypertension) CAD (coronary artery disease) Tobacco abuse Ischemic cardiomyopathy NSVT (nonsustained ventricular tachycardia) Surgical History Hx of colonoscopy History of esophagogastroduodenoscopy (EGD) H/O heart artery stent H/O hernia repair H/O knee surgery Family History Other Mental health disorder Social History Household Members: None Housing: House Do you presently have visiting nurse or other home services: No Unable to assess alcohol history related to: Unknown Alcohol intake: never Patient Tobacco Use Status: Current everyday Tobacco user Tobacco use type: Cigarette Cigarettes Per Day: 10 Years Smoked: 30 e-Cigarette/Vaping Use: Never Used Second Hand Smoke Exposure: No Advance Directives Date on File: 09/14/20 service: No Current occupational status: employed Current occupation: [employer] - Right Handed Cognitive needs: No Hearing needs: No Vision needs: No Review of Systems Const Details: weight gain All systems reviewed & are unremarkable except as noted in HPI and below ENT Denies dizziness Card Reports chest pain, Reports chest pain at rest, Denies chest pain with activity, Reports rapid heart rate, Denies pedal edema, Denies edema, Denies leg edema, Denies lightheadedness, Denies palpitations, Denies dyspnea, Reports dyspnea on exertion and Denies orthopnea Resp Denies cough, Denies dyspnea and Reports dyspnea on exertion GI Denies hematochezia and Denies change in stool character Musc Denies abnormal gait, Denies limited range of motion, Denies muscle cramps, Denies muscle weakness, Denies numbness, Denies radiating pain into limb, Denies stiffness and Denies tingling Neuro Denies abnormal gait, Denies dizziness, Denies numbness and Denies tingling Endo Denies palpitations Physical Exam Vital Signs: Last Vital Signs Pulse 74 06/24/24 15:34 BP 134/90 H 06/24/24 15:34 Const General: cooperative, healthy appearing, comfortable and no acute distress Orientation/consciousness: patient oriented x3 Neck Neck: Yes normal visual inspection and Yes no JVD Resp Effort & Inspection: normal respiratory effort Auscultation: clear to auscultation bilaterally, no rales, no rhonchi and no wheezes Cardio Rate: regular rate Rhythm: regular rhythm Heart sounds: S1 normal heart sound present, S2 normal heart sound present, no gallops, no murmurs and no rubs Neuro General: patient oriented x3 Extrem General: Yes normal to inspection, No no pedal edema and No calf tenderness Psych Appearance: grossly normal Mental Status: mental status grossly normal Speech and movement: Normal speech and movement present Office Procedures Cardiac Device Check Cardiac Device Check Details: [employer] single lead ICD interrogation today, battery 6.7-7.2 years, VVI mode, low rate 40, RV threshold 1 volt at 0.5 milliseconds, V paced less than 1%, high V rates noted on 04/28/2024, falling in SVT/NSVT zone. No high V rates since then. 29445-IW Cardiac Device Check, single lead implantable defibrillator Procedure code (CPT) selection complete EKG Details: Today, read by me, normal sinus rhythm, minimal voltage criteria for LVH, septal infarct, rate 74, QTC 437 millisecond 36833-Eodfcorqdonrnkdxr, Complete Assessment & Plan Assessment & Plan (1) Anterior wall myocardial infarction: Comment: 12/2017 STEMI, ANTONIETA to proximal LAD Code(s): I21.09 - ST elevation (STEMI) myocardial infarction involving other coronary artery of anterior wall Category: Medical Plan: History of anterior wall TX 12/2017. ANTONIETA to the LAD at that time. He has residual ischemic cardiomyopathy. Last known EF 25 to 30%. He has a single lead ICD in place. Last nuclear stress test was done on 12/03/2021 showing a large anterior wall TX with minimal cass-infarct ischemia. Last echocardiogram was 08/29/2023 showing EF 25-30%, wall motion abnormality suggesting ischemic cardiomyopathy, normal valves. Will continue on aspirin indefinitely. Continue atorvastatin with ideal LDL goal less than 70. Labs done on 12/21/2023 showed LDL 63. His triglycerides were elevated at 230 and his PCP started him on [place] 3. Continue metoprolol and Entresto for neurohormonal modulation. - he admits to taking Entresto only once daily. Instructed to take it b.i.d. as directed. Recent labs showed creatinine 0.74, potassium 3.2. Blood pressure is well controlled. Signs and symptoms of angina reviewed. Will update echo prior to his next visit. Emergency care if ever needed for concerning symptoms. Cardiology follow-up 3 months, sooner if needed. (2) Ischemic cardiomyopathy: Code(s): I25.5 - Ischemic cardiomyopathy Category: Medical Plan: Last echo with EF 25-30 %. Has ICD for primary prevention. Euvolemic on examination today. Ongoing medical management with Entresto, metoprolol for neurohormonal modulation. Signs and symptoms of heart failure reviewed (3) ICD (implantable cardioverter-defibrillator) in place: Comment: [employer] single-chamber ICD for primary prevention, implanted 09/18/2020 Code(s): Z95.810 - Presence of automatic (implantable) cardiac defibrillator Category: Medical Plan: Single-chamber ICD in place. Office interrogation today shows device is functioning normally. Episodes of tachycardia seen, V rates in the 150s to 160. This could be sinus tach versus SVT. He describes heart palpitations, rapid beating for no reason. Will changed metoprolol to tartrate 150 mg b.i.d. Will check a Holter monitor to assess rates and for arrhythmia. For ICD, He has remote monitoring in use. Next office interrogation in 6 months (4) HTN (hypertension): Code(s): I10 - Essential (primary) hypertension Category: Medical Plan: Blood pressure today 134/90. Will be increasing metoprolol dose. (5) SVT (supraventricular tachycardia): Code(s): I47.1 - Supraventricular tachycardia Category: Medical Plan: As above. Last recorded episode 05/18/24 Plan Time spent on chart review, documentation, interview and assessment Orders: Orders CA echo transthoracic complete 09/23/24 I25.5 - Ischemic cardiomyopathy ECG 3 day holter monitor 1 Month R00.2 - Palpitations Medications: New metoprolol tartrate dose increased and changed to tartrate 150 mg (1.5 x 100 mg) PO BID 90 tabs 3RF 30 days Discontinued metoprolol succinate ER (Toprol XL) Discontinued Reason: Doctor's Order 200 mg PO DAILY 90 days 90 tabs 3RF Coding Level of Care Code Est Pt Level 4 (46596) Complex EM visit Add On G2211 Diagnoses Anterior wall myocardial infarction I21.09 Ischemic cardiomyopathy I25.5 ICD (implantable cardioverter-defibrillator) in place Z95.810 HTN (hypertension) I10 SVT (supraventricular tachycardia) I47.1 CPT Codes Cardiac Device Check - Cardiac Device 4: 07599-TW Cardiac Device Check, single lead implantable defibrillator ([id number]) EKG - CPT: 66146-Ckhvjapdrnuwmyszz, Complete ([id number]) Time Spent (min) 36
--- OUTSIDE RECORDS SUMMARY | 2024-06-24 18:15 | XMS_ITS | Data Portability ---
Author Organization [facility], [address] Address [address] [place] [address] Assessment No assessment recorded. Plan of Treatment Reminders Order Date Submit Date Provider Last Modified By Organization Details Last Modified Time Details Appointments None recorded. Lab SARS CoV 2 (COVID-19) Ag, QL, IA, upper respiratory specimen 2023 [email or web address] [facility], [address] [place] [address], [phone], 11:44:47 Referral None recorded. Procedures None recorded. Surgeries None recorded. Imaging None recorded. Medication Orders benzonatate 200 mg capsule 2023 024 [email or web address] [facility] #[id number], [address] [place], [address], 11:44:45 fluticasone propionate 50 mcg/actuati on nasal spray,suspe nsion 2023 024 [email or web address] [facility] #[id number], [address] [place], [address], 20:45:02 albuterol sulfate HFA 90 mcg/actuati on aerosol inhaler 2023 024 [email or web address] [id number], [address] [place], [address], 11:44:45 Patient TargetsNo targets recorded. Patient Instructions Encounter Date Encounter Id Patient Instructions Last Modified By Organization Details Last Modified Time 02/07/2024 [id number] dizziness: care instructions [email or web address] Not available 02/07/2024 11:44:45 Reason for Referral None Reported. Results Created Date Observation Date Name Description Value Unit Range Abnormal Flag Note LastModifiedBy Organization Detail LastModifiedTime 02/07/2002/07/2024 SARS CoV 2 (COVI D-19) Ag, QL, IA, upper respi rator y speci men Unknown Analyte negati ve Not Available [address] [place] [address], [phone], 02/07/2024 11:24:53 Result Notes None recorded. Problems Name Problem SNOMED Code Status Onset Date Resolution Date Notes Provider Name and Address Organization Details Recorded Time Anxiety 48435927 Active KIEL Longoria - [facility] 02/07/2024 11:26:43 Problem Notes None recorded. Medical Equipment None Reported. Allergies No known drug allergies Medications Name Sig Start Date Stop Date Status Note LastModified by Organization Details LastModified Time benzonatate 200 mg capsule Take 1 capsule 3 times a day by oral route for 5 days. active Not Available Not Available Not Avai lable albuterol sulfate HFA 90 mcg/actuation aerosol inhaler INHALE 2 PUFFS INTO THE LUNGS EVERY 4 HOURS FOR 30 DAYS active Not Available Not Available No t Available fluticasone propionate 50 mcg/actuation nasal spray,suspens ion SPRAY 2 SPRAYS INTO EACH NOSTRIL EVERY DAY FOR 30 DAYS active Not Available Not Available Not Avai lable Asprin Ec Low Dose active Not Available Not Available Not Available Jardiance active Not Available Not Dian ilable Not Available metoprolol succinate ER 100 mg capsule sprinkle, ext. release 24 hr Take 1 capsule every day by oral route. active Not Available Not Available No t Available omega 3 1,000 mg-dha 250 mg-epa 750 mg/5 mL oral liquid Take by oral route. active Not Available Not Available No t Available Vitals Date Recorded Body height Body mass index (BMI) Body weight Oxygen saturation Oxygen saturation in Arterial blood by Pulse oximetry Pain severity - 0-10 verbal numeric rating [Score] - Reported Heart rate Respiratory rate Body temperature Systolic blood pressure Diastolic blood pressure Provider Name and Address Organization Details Last Updated DateTime 172.72 cm 34.7 kg/m2 580256. 06 g 98 % 98 % 0 87 /min 18 /min 98.8 [degF] 146 mm[Hg] 85 mm[Hg] Tami Mann PA - [facility] 11:26:04 Social History Question Answer Notes LastModified by Organizat ion Details LastModified Time Tobacco Smoking Status Current Every Day Smoker Tami Mann danay PA - [facility] 02/07/2024 11:24:20 What Is Your Level Of Alcohol Consumption? None Information not available 02/07/2024 Are You Currently Employed? Yes Information not available 02/07/2024 Have You Had A Flu Shot This Season? Yes Information not available 02/07/2024 If No, Would You Like A Flu Shot Today? No Information not available 02/07/2024 Do You Use Any Illicit Or Recreational Drugs? No Information not available 02/07/2024 Have You Recently Traveled Abroad? No Information not available 02/07/2024 Sex: Unknown Functional Status None recorded. Mental Status None recorded. Family History Relationship Description Onset Age of this Age Resolved Age Notes LastModified by Organization Details LastModified Time Father No current problems or disability Not available 02/06 11:24:05 Mother No current problems or disability Not available 02/06 11:24:05 Medical History No medical history recorded. Past Encounters Encounter ID Performer Location Encounter Start Date Encounter Closed Date Diagnosis/Indication Diagnosis SNOMED-CT Code Diagnosis ICD10 Code Diagnosis Note [id number] [address] [place] [id number] 03/11/2020 08:55:03 03/11/2020 12:15:46 [id number] [address] [place] [phone] 07/04/2019 10:50:44 07/04/2019 12:07:12 [id number] [address] [place] [id number] 06/17/2021 14:04:23 06/17/2021 14:54:33 [id number] KIEL Martin [address] [facility] [address] [facility] [place] E[place] [id number] 02/07/2024 11:17:40 02/07/2024 11:36:21 Viral upper respiratory tract infection 306797987 J06.9 You were seen today for body aches, congestion , and cough. This is most likely viral. Drink plenty of fluids to stay very well-hydra bulmaro. Drink non-carbon ated fluids. Avoid alcohol. Take ibuprofen (Motrin, Advil) or acetaminop hen (Tylenol) as needed for fever or body aches, unless you have previously been told not to use these medicines. For adults, the recommende d dose for ibuprofen 600 mg every 6 hours, and for acetaminop hen the dose is 650 mg every 4 hours. Separate yourself from other people and animals in your home. As much as possible, stay in a specific room and away from other people in your home. Use a separate bathroom, if available. Cover your coughs and sneezes with a tissue then throw the tissue in the trash.Kisha n your hands often. Wash your hands often with soap and water for at least 20 seconds, especially after going to the bathroom; before eating; and after blowing your nose, coughing, or sneezing. If soap and water are not readily available, use an alcohol-ba sed hand capacitor pack press operator with at least 60% alcohol. Always wash hands with soap and water if hands are visibly dirty. If you are in any way worsening, please seek care by contacting your doctor, going to an urgent care center for further evaluation and treatment of your condition. This could include, but is not limited to: Please go to the emergency room if you have very high or persistent fevers, vomiting, trouble breathing or shortness of breath, coughing up blood, severe headaches, neck pain/stiff ness, or any new or worsening symptoms or concerns. Thank you for using [facility] today, please feel free to contact our office if you have any questions or concerns. Health Concerns Section Related Observation LastModified by Organization Sher casey LastModified Time None Recorded Concern Status LastModified by Organization Details LastModified Time None Recorded Advance Directives Directive None Recorded Payers Encounter Date Sequence Insurance Name Policy Number Policy Patton Covered Member ID Patton Member ID Guarantor Name 03/11/2020 1 [facility] [employer] (O) [id number] Chaz Martinez Hartmann [id number] Chaz Hartmann 06/17/2021 1 [facility] [employer] ([facility] [id number] Chaz Martinez Hartmann [id number] Chaz Hartmann 02/07/2024 1 [facility] [id number] Chaz Hartmann [id number] Chaz Hartmann Notes Date Note Type Note Provider Name and Address Organization Details Recorded Time 02/07/2024 text/html 48 y/o male here with cough, congestion, some SOB, fatigue and dizziness for the past week. taking OTC cold meds with some improvement KIEL Martin [address] [place], [address], PA - [facility] 02/07/2024 11:50:30
== END 2024-06-24 16:22 | disposition home or self-care (01) ==
LOC: HO.HCS 15:22
PROVIDERS: PCP Nurse Practitioner Family; Visit Provider Nurse Practitioner Family
DX: I21.09 ST elevation (STEMI) myocardial infarction involving other coronary artery of anterior wall (principal); I25.5 Ischemic cardiomyopathy; Z95.810 Presence of automatic (implantable) cardiac defibrillator; I10 Essential (primary) hypertension; I47.10 Supraventricular tachycardia, unspecified
CPT/HCPCS: 93010; 93282; 99214

== ENCOUNTER → 2024-06-24 15:22 | Outpatient (BNVA) | payer OTHER, SELFPAY | PROVIDERS: PCP Nurse Practitioner Family; Visit Provider Nurse Practitioner Family | DX: I25.5 Ischemic cardiomyopathy (principal); I10 Essential (primary) hypertension; I47.10 Supraventricular tachycardia, unspecified; I25.2 Old myocardial infarction; Z45.018 Encounter for adjustment and management of other part of cardiac pacemaker; Z79.82 Long term (current) use of aspirin; Z79.899 Other long term (current) drug therapy | CPT/HCPCS: 93005 ==

== ENCOUNTER → 2024-07-26 15:53 | Outpatient (REF) | payer OTHER, SELFPAY ==
--- OUTSIDE RECORDS SUMMARY | 2024-07-26 16:50 | XMS_ITS | Data Portability ---
Author Organization [facility], [address] Address [address] [place] [address] Assessment No assessment recorded. Plan of Treatment Reminders Order Date Submit Date Provider Last Modified By Organization Details Last Modified Time Details Appointments None recorded. Lab SARS CoV 2 (COVID-19) Ag, QL, IA, upper respiratory specimen 2023 [email or web address] [facility], [address] [place] [address], [phone], 11:44:47 Referral None recorded. Procedures None recorded. Surgeries None recorded. Imaging None recorded. Medication Orders benzonatate 200 mg capsule 2023 024 [email or web address] [id number], [address] [place], [address], 11:44:45 fluticasone propionate 50 mcg/actuati on nasal spray,suspe nsion 2023 024 [id number], [address] [place], [address], 20:45:02 albuterol sulfate HFA 90 mcg/actuati on aerosol inhaler 2023 024 [email or web address] [id number], [address] [place], [address], 11:44:45 Patient TargetsNo targets recorded. Patient Instructions Encounter Date Encounter Id Patient Instructions Last Modified By Organization Details Last Modified Time 02/07/2024 [id number] dizziness: care instructions [email or web address] Not available 02/07/2024 11:44:45 Reason for Referral None Reported. Results Created Date Observation Date Name Description Value Unit Range Abnormal Flag Note LastModifiedBy Organization Detail LastModifiedTime 02/07/2002/07/2024 SARS CoV 2 (COVI D-19) Ag, QL, IA, upper respi rator y speci men Unknown Analyte negati ve Not Available [address] [place] [address], [phone], 02/07/2024 11:24:53 Result Notes None recorded. Problems Name Problem SNOMED Code Status Onset Date Resolution Date Notes Provider Name and Address Organization Details Recorded Time Anxiety 77462104 Active KIEL Longoria - [facility] 02/07/2024 [...] Last Updated DateTime 172.72 cm 34.7 kg/m2 140944. 06 g 98 % 98 % 0 [...] SNOMED-CT Code Diagnosis ICD10 Code Diagnosis Note [id number] [address] [place] [phone] 03/11/2020 08:55:03 03/11/2020 12:15:46 [id number] [address] [place] [phone] 07/04/2019 10:50:44 07/04/2019 12:07:12 [id number] [address] [place] [phone] 06/17/2021 14:04:23 06/17/2021 14:54:33 [id number] KIEL Martin [address] [facility] [address] [facility] [place] [id number] 02/07/2024 11:17:40 02/07/2024 11:36:21 Viral upper respiratory tract infection 032319349 J06.9 You were seen today for body [...] readily available, use an alcohol-ba sed hand subsurface augmentee elint operator with at least 60% alcohol. Always [...] symptoms or concerns. Thank you for using [facility] today, please feel free to contact our [...] Patton Member ID Guarantor Name 03/11/2020 1 [facility] [employer] (O) [id number] Chaz Martinez Hartmann [id number] Chaz Hartmann 06/17/2021 1 [facility] [employer] ([facility] [id number] Chaz Martinez Hartmann [id number] Chaz Hartmann 02/07/2024 1 [facility] [id number] Chaz Hartmann [id number] Chaz Hartmann Notes Date Note Type Note Provider Name and Address Organization Details Recorded Time 02/07/2024 text/html 48 y/o male here with cough, congestion, some SOB, fatigue and dizziness for the past week. taking OTC cold meds with some improvement KIEL Martin [address] [place], [address], [place] - [facility] 02/07/2024 11:50:30
== END ==
LOC: HO.CARD 15:53
PROVIDERS: PCP Nurse Practitioner Family; Visit Provider Nurse Practitioner Family
DX: R00.2 Palpitations (principal)
CPT/HCPCS: 93242

== ENCOUNTER → 2024-07-26 15:56 | Outpatient (BNV) | payer OTHER, SELFPAY | PROVIDERS: PCP Nurse Practitioner Family; Visit Provider Internal Medicine | DX: I47.10 Supraventricular tachycardia, unspecified (principal) | CPT/HCPCS: 93244 ==

== ENCOUNTER → 2024-09-05 23:59 | Outpatient (BNV) | payer OTHER, SELFPAY ==
--- NOTE | 2024-10-04 10:10 | MHC.OFFVIS ---
Intake Visit Reasons: REmote ICD check- [facility] Allergies No Known Allergies Allergy (Verified 10/01/24 13:34) FORMERLY [facility] Medical History Anterior wall myocardial infarction Nocturnal hypoxemia EVETTE (obstructive sleep apnea) Obesity (BMI 30-39.9) ICD (implantable cardioverter-defibrillator) in place HTN (hypertension) CAD (coronary artery disease) Tobacco abuse Ischemic cardiomyopathy NSVT (nonsustained ventricular tachycardia) Surgical History Hx of colonoscopy History of esophagogastroduodenoscopy (EGD) H/O heart artery stent H/O hernia repair H/O knee surgery Family History Other Mental health disorder Social History Household Members: None Housing: House Do you presently have visiting nurse or other home services: No Unable to assess alcohol history related to: Unknown Alcohol intake: never Patient Tobacco Use Status: Current everyday Tobacco user Tobacco use type: Cigarette Cigarettes Per Day: 10 Years Smoked: 30 e-Cigarette/Vaping Use: Never Used Second Hand Smoke Exposure: No Advance Directives Date on File: 09/14/20 service: No Current occupational status: employed Current occupation: [employer] - Right Handed Cognitive needs: No Hearing needs: No Vision needs: No Office Procedures Cardiac Device Check Cardiac Device Check Details: ICD Good battery Episodes of NSVT and Sinus tachycardia recorded. No device therapies delivered. [id number] Cardiac Device Interrogation, pacemaker or defibrillator Procedure code (CPT) selection complete Assessment & Plan Assessment & Plan (1) ICD (implantable cardioverter-defibrillator) in place: Comment: [facility] single-chamber ICD for primary prevention, implanted 09/18/2020 Code(s): Z95.810 - Presence of automatic (implantable) cardiac defibrillator Category: Medical Plan Coding Level of Care Code Procedure Only Diagnoses ICD (implantable cardioverter-defibrillator) in place Z95.810 CPT Codes Cardiac Device Check - Cardiac Device 14: [id number] Cardiac Device Interrogation, pacemaker or defibrillator ([id number])
== END ==
PROVIDERS: PCP Nurse Practitioner Family; Visit Provider Internal Medicine Cardiovascular Disease
DX: I47.10 Supraventricular tachycardia, unspecified (principal); Z95.810 Presence of automatic (implantable) cardiac defibrillator
CPT/HCPCS: 93295

== ENCOUNTER → 2024-09-05 23:59 | Outpatient (BNV) | payer OTHER, SELFPAY ==
--- NOTE | 2024-10-04 10:08 | MHC.OFFVIS ---
Intake Visit Reasons: Remote HF monitoring- [facility] Allergies No Known Allergies Allergy (Verified 10/01/24 13:34) PFSH Medical History Anterior wall myocardial infarction Nocturnal hypoxemia EVETTE (obstructive sleep apnea) Obesity (BMI 30-39.9) ICD (implantable cardioverter-defibrillator) in place HTN (hypertension) CAD (coronary artery disease) Tobacco abuse Ischemic cardiomyopathy NSVT (nonsustained ventricular tachycardia) Surgical History Hx of colonoscopy History of esophagogastroduodenoscopy (EGD) H/O heart artery stent H/O hernia repair H/O knee surgery Family History Other Mental health disorder Social History Household Members: None Housing: House Do you presently have visiting nurse or other home services: No Unable to assess alcohol history related to: Unknown Alcohol intake: never Patient Tobacco Use Status: Current everyday Tobacco user Tobacco use type: Cigarette Cigarettes Per Day: 10 Years Smoked: 30 e-Cigarette/Vaping Use: Never Used Second Hand Smoke Exposure: No Advance Directives Date on File: 09/14/20 service: No Current occupational status: employed Current occupation: [employer] - Right Handed Cognitive needs: No Hearing needs: No Vision needs: No Office Procedures Cardiac Device Check Cardiac Device Check Details: HF monitoring Stable thoracic impedance. [id number] Cardiac Device Interrogation, cardio physiologic monitor Procedure code (CPT) selection complete Assessment & Plan Assessment & Plan (1) Ischemic cardiomyopathy: Code(s): I25.5 - Ischemic cardiomyopathy Category: Medical Plan Coding Level of Care Code Procedure Only Diagnoses Ischemic cardiomyopathy I25.5 CPT Codes Cardiac Device Check - Cardiac Device 15: [id number] Cardiac Device Interrogation, cardio physiologic monitor ([id number])
== END ==
PROVIDERS: PCP Nurse Practitioner Family; Visit Provider Internal Medicine Cardiovascular Disease
DX: I25.5 Ischemic cardiomyopathy (principal); Z95.810 Presence of automatic (implantable) cardiac defibrillator
CPT/HCPCS: 93297

== ENCOUNTER → 2024-09-24 09:59 | Outpatient (REF) | payer OTHER, SELFPAY ==
--- NOTE | 2024-09-24 10:02 | CA_ITS ---
Transthoracic Echocardiogram Patient (Last, First, Middle): Chaz Hartmann C Gender: Male Date of : 1975 Age: 49 Procedure Date: 09/24/2024 Procedure Type: Transthoracic Echocardiogram Location: OP Height: 170.18 cm Weight: 106.6 kg BSA: 2.17 m2 Heart Rate: 67 bpm BP: 134 / 88 mmHg Manager Quality Improvement: HANS Referring MD: Tarsha Meade COAL HAULER OPERATORShruthi Symptoms: I25.5 - Ischemic cardiomyopathy Study Quality: Fair w/Contrast ECG Rhythm: Sinus Conclusions: - The left ventricular systolic function is severely decreased. The visually estimated ejection fraction is between 25-30%. 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 - No obvious valvular pathology seen on this study. Findings Procedure Information Contrast agent, definity, is being given per protocol without apparent complications. Left Ventricle Normal left ventricular cavity size. There is mildly increased left ventricular wall thickness. The left ventricular systolic function is severely decreased. The visually estimated ejection fraction is between 25 30%. There is evidence of regional wall motion abnormalities. Wall Motion Rest Echo Findings The mid anteroseptal segment is akinetic. 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 Right Ventricle The right ventricle was not well visualized. Mildly increased right ventricular cavity size. There is mildly decreased right ventricular systolic function. There is an ICD wire seen in the right ventricle. Atria Both atria are normal in size. Aortic Valve There is a normal trileaflet aortic valve. There is no aortic valve stenosis. There is no aortic valve regurgitation. Mitral Valve The mitral valve appears normal. There is no mitral valve regurgitation. There is no mitral valve stenosis. Pulmonic Valve The pulmonic valve is likely normal. Tricuspid Valve There is no tricuspid valve regurgitation. There is no evidence of pulmonary hypertension. Great Vessels The asc aorta and aortic arch are normal in size. Venous The inferior vena cava is mildly dilated and collapses greater than 50% with inspiration. Pericardium/Pleural There is no evidence of pericardial effusion. Prior Study Comparison No significant change compared to prior study dated: 08/29/2023. Recommendations, Care & Conclusions No obvious valvular pathology seen on this study. Measurements 2D Linear Measurements IVSd: 0.95 0.6-0.9/0.6-1.0 cm LVIDd: 5.60 3.9-5.3/4.2-5.9 cm LVIDd Index: 2.58 2.4-3.2/2.2-3.1 cm/m2 LVIDs: 4.23 2.0-3.6 cm LVPWd: 1.21 0.7-1.1 cm LA Diam: 4.10 2.7-3.8/3.0-4.0 cm LAIDs Index: 1.89 1.5-2.3 cm/m2 LV Mass: 302.96 67-162/88-224 g LV Mass Index: 139.61 43-95/49-115 g/m2 LVOT Diam: 2.20 3.0+(-)1.3 cm 2D Systolic Function EF 4C: 44.40 >55% EF 2C: 44.00 >55% EF BiP: 39.80 >55% Mitral Valve MV Pk E: 0.67 MV PK A: 0.63 MV Decel Time: 207.00 E/A: 1.10 E'Lateral: 8.70 E'Medial: 7.51 E/E' Med: 8.90 E/E' Lat: 7.70 PHT: 61.00 MVA PHT: 3.61 Decel [place]: 3.22 Aortic Valve AoV Pk Jameel: 1.09 AoV Mn Jameel: 0.83 AoV VTI: 0.25 AoV Pk Grad: 5.00 Aov Mn Grad: 3.00 JOLYNN Cont.VTI: 3.01 LVOT LVOT Pk Jameel: 1.02 LVOT Mn Jameel: 0.75 LVOT VTI: 0.20 LVOT Pk Grad: 4.00 LVOT Mn Grad: 2.00 LVOT Diam: 2.20 LVOT Area: 3.80 Diastolic Function MV Pk E: 0.67 MV Pk A: 0.63 E/A: 1.10 E'Medial: 7.51 E/E' Med: 8.90 E' Laterial: 8.70 E/E' Lat: 7.70 Right Ventricle TAPSE (mm): 25.30 TVS' Jameel: 8.92 Tricuspid Valve RA Press: 8.00 Great Vessels Aorta Sinus of Valsalva: 3.90 2.0-3.5 cm Ao Asc: 3.50 2.1-3.4 cm Ao Arch: 2.50 Pulmonary Valve PV Pk Jameel: 0.90 Peak PV Grad: 3.00 Updated in Other Vendor System with Status of Final Ajay Wiseman MD electronically signed on 09/25/2024 11:54:41 AM with status of Final
--- OUTSIDE RECORDS SUMMARY | 2024-09-24 11:25 | XMS_ITS | Data Portability ---
Author Organization [facility], [address] Address [address] [place] [address] Assessment No assessment recorded. Plan of Treatment Reminders Order Date Submit Date Provider Last Modified By Organization Details Last Modified Time Details Appointments None recorded. Lab SARS CoV 2 (COVID-19) Ag, QL, IA, upper respiratory specimen 2023 [email or web address] [facility]100[facility], [address] [place] [address], [phone], 11:44:47 Referral None recorded. Procedures None recorded. Surgeries None recorded. Imaging None recorded. Medication Orders benzonatate 200 mg capsule 2023 024 [email or web address] [facility] #[id number], [address] [place], [address], 11:44:45 fluticasone propionate 50 mcg/actuati on nasal spray,suspe nsion 2023 024 [email or web address] [facility] #[id number], [address] [place], [address], 20:45:02 albuterol sulfate HFA 90 mcg/actuati on aerosol inhaler 2023 024 [email or web address] [facility] #[id number], [address] [place], [address], 11:44:45 Patient TargetsNo targets recorded. Patient Instructions Encounter Date Encounter Id Patient Instructions Last Modified By Organization Details Last Modified Time 02/07/2024 [id number] dizziness: care instructions [email or web address] Not available 02/07/2024 11:44:45 Reason for Referral None Reported. Results Created Date Observation Date Name Description Value Unit Range Abnormal Flag Note LastModifiedBy Organization Detail LastModifiedTime 02/07/2002/07/2024 SARS CoV 2 (COVI D-19) Ag, QL, IA, upper respi rator y speci men Unknown Analyte negati ve Not Available [address] [place] [address], [address], 02/07/2024 11:24:53 Result Notes None recorded. Problems Name Problem SNOMED Code Status Onset Date Resolution Date Notes Provider Name and Address Organization Details Recorded Time Anxiety 71391432 Active KIEL Longoria - [facility] 02/07/2024 [...] saturation in Arterial blood by Pulse oximetry Heart rate Respiratory rate Body temperature Systolic blood pressure Diastolic blood pressure Provider Name and Address Organization Details Last Updated DateTime 172.72 cm 34.7 kg/m2 610775. 06 g 98 % 98 % 87 /min 18 /min 98.8 [degF] 146 mm[Hg] 85 mm[Hg] Tami Mann PA - [facility] 11:26:04 Social History Question Answer Notes LastModified by Organizat ion Details LastModified Time Tobacco Smoking Status Current Every Day Smoker Tami Mann danay PA - [facility] 02/07/2024 11:24:20 Have You Had A Flu Shot This Season? Yes Information not available 02/07/2024 If No, Would You Like A Flu Shot Today? No Information not available 02/07/2024 Have You Recently Traveled Abroad? No Information not available 02/07/2024 Sex: Unknown Functional Status Question Answer Note LastModified by Organizat ion Details LastModified Time Do you use any illicit or recreational drugs? No Information not available 02/07/2024 What is your level of alcohol consumption? None Information not available 02/07/2024 Are you currently employed? Yes Information not available 02/07/2024 Mental Status None recorded. Family History Relationship [...] SNOMED-CT Code Diagnosis ICD10 Code Diagnosis Note [id number] [address] [place] [address] 03/11/2020 08:55:03 03/11/2020 12:15:46 [id number] [address] [place] [address] 07/04/2019 10:50:44 07/04/2019 12:07:12 [id number] [address] [place] [address] 06/17/2021 14:04:23 06/17/2021 14:54:33 [id number] KIEL Martin [address] [place] [address] 02/07/2024 11:17:40 02/07/2024 11:36:21 Viral upper respiratory tract infection [id number] J06.9 You were seen today for body [...] readily available, use an alcohol-ba sed hand marketing services coordinator with at least 60% alcohol. Always wash [...] symptoms or concerns. Thank you for using [facility] today, please feel free to contact our office if you have any questions or concerns. Health Concerns Section Related Observation LastModified by Organization Detai ls LastModified Time None Recorded Concern Status LastModified by Organization Details LastModified Time None Recorded Advance Directives Directive None Recorded Payers Insurance Date Sequence Insurance Name Policy Number Policy Patton Covered Member ID Patton Member ID Guarantor Name 02/07/2024 1 [facility] [id number] Chaz Hartmann [id number] Chaz Hartmann 02/07/2024 1 [facility] (HMO) [id number] Chaz Hartmann [id number] Chaz Hartmann 02/07/2024 [employer] Chaz Hartmann Notes Date Note Type Note Provider Name and Address Organization Details Recorded Time 02/07/2024 text/html 48 y/o male here with cough, congestion, some SOB, fatigue and dizziness for the past week. taking OTC cold meds with some improvement KIEL Martin [address] [place], [address], [place] - [facility] 02/07/2024 11:50:30
== END ==
LOC: HO.CARD 09:59
PROVIDERS: PCP Nurse Practitioner Family; Visit Provider Nurse Practitioner Family
DX: I25.5 Ischemic cardiomyopathy (principal)
CPT/HCPCS: 93306; Q9957

== ENCOUNTER → 2024-09-24 10:02 | Outpatient (BNV) | payer OTHER, SELFPAY | PROVIDERS: PCP Nurse Practitioner Family; Visit Provider Internal Medicine | DX: I50.9 Heart failure, unspecified (principal); Z95.810 Presence of automatic (implantable) cardiac defibrillator | CPT/HCPCS: 93306 ==

== ENCOUNTER 2024-10-01 13:29 | Outpatient (AMB) | payer OTHER, SELFPAY ==
--- NOTE | 2024-10-01 13:31 | MHC.OFFVIS ---
Vital Signs 10/01/24 13:32 Height 5 ft 8 in Weight 231 lb 14.821 oz BMI 35.3 BP 114/82 Blood Pressure Location Lt brachial Position Sitting Pulse 86 Pulse Source Pulse Oximeter Intake Visit Reasons: 3m follow up [employer] Board Certified Orthotist Required: No Allergies No Known Allergies Allergy (Verified 10/01/24 13:34) Medication List - Last Reconciled 10/01/24 by Tarsha Meade, VETERINARY TOXICOLOGIST-C aspirin (Adult Aspirin Regimen) 81 mg PO DAILY atorvastatin 80 mg PO BEDTIME betamethasone dipropionate 0.05% 1 appl topical DAILY PRN bismuth subsalicylate 2 tabs PO QID 14 days blood pressure monitor As directed buspirone 15 mg PO BID 90 days empagliflozin (Jardiance) 10 mg PO DAILY methadone (Methadone Intensol) 22 mg PO DAILY metoprolol succinate ER 150 mg (1.5 x 100 mg) PO BID 90 days omega-3 acid ethyl esters 1 cap PO BID omeprazole 20 mg PO BID 14 days sacubitril-valsartan 49-51 mg (Entresto) 1 tab PO BID 90 days HPI HPI 3m follow up: Details: Chaz is a 49-year-old male with past medical history of hypertension, hyperlipidemia, CAD, anterior wall GA 12/2017 with proximal LAD stent placed, ischemic cardiomyopathy status post ICD, SVT who presents for follow-up. Today he reports that he has notice some shortness of breath with activity. He has gained weight and is not doing any routine exercise. He has busy at work most of his time and has been working over 40 hours most weeks. He is again requesting a note to have a limit of 40 hours weekly for his employer. He will get periodic sharp pains in his chest that last sec and resolve. He will feel brief heart palpitations, no dizziness, presyncope, syncope, falls. No PND, orthopnea or edema. No ICD shocks. Taking meds as directed but does still miss his evening meds at times. Working full-time at [employer]. [facility] Medical History Anterior wall myocardial infarction Nocturnal hypoxemia EVETTE (obstructive sleep apnea) Obesity (BMI 30-39.9) ICD (implantable cardioverter-defibrillator) in place HTN (hypertension) CAD (coronary artery disease) Tobacco abuse Ischemic cardiomyopathy NSVT (nonsustained ventricular tachycardia) Surgical History Hx of colonoscopy History of esophagogastroduodenoscopy (EGD) H/O heart artery stent H/O hernia repair H/O knee surgery Family History Other Mental health disorder Social History Household Members: None Housing: House Do you presently have visiting nurse or other home services: No Unable to assess alcohol history related to: Unknown Alcohol intake: never Patient Tobacco Use Status: Current everyday Tobacco user Tobacco use type: Cigarette Cigarettes Per Day: 10 Years Smoked: 30 e-Cigarette/Vaping Use: Never Used Second Hand Smoke Exposure: No Advance Directives Date on File: 09/14/20 service: No Current occupational status: employed Current occupation: [employer] - Right Handed Cognitive needs: No Hearing needs: No Vision needs: No Review of Systems Const All systems reviewed & are unremarkable except as noted in HPI and below Reports weight gain ENT Denies dizziness Card Reports chest pain, Denies chest pain at rest, Denies chest pain with activity, Denies rapid heart rate, Denies pedal edema, Denies edema, Denies leg edema, Denies lightheadedness, Denies palpitations, Denies dyspnea, Reports dyspnea on exertion and Denies orthopnea Resp Denies cough, Denies dyspnea and Reports dyspnea on exertion GI Denies hematochezia and Denies change in stool character Musc Denies abnormal gait, Denies limited range of motion, Denies muscle cramps, Denies muscle weakness, Denies numbness, Denies radiating pain into limb, Denies stiffness and Denies tingling Neuro Denies abnormal gait, Denies dizziness, Denies numbness and Denies tingling Endo Denies palpitations Physical Exam Const General: cooperative, healthy appearing, comfortable and no acute distress Orientation/consciousness: patient oriented x3 Neck Neck: Yes normal visual inspection and Yes no JVD Resp Effort & Inspection: normal respiratory effort Auscultation: clear to auscultation bilaterally, no rales, no rhonchi and no wheezes Cardio Rate: regular rate Rhythm: regular rhythm Heart sounds: S1 normal heart sound present, S2 normal heart sound present, no gallops, no murmurs and no rubs Neuro General: patient oriented x3 Extrem General: Yes normal to inspection, No no pedal edema and No calf tenderness Psych Appearance: grossly normal Mental Status: mental status grossly normal Speech and movement: Normal speech and movement present Assessment & Plan Assessment & Plan (1) Anterior wall myocardial infarction: Comment: 12/2017 STEMI, ANTONIETA to proximal LAD Code(s): I21.09 - ST elevation (STEMI) myocardial infarction involving other coronary artery of anterior wall Category: Medical Plan: History of anterior wall GA 12/2017, with ANTONIETA to the LAD at that time, other vessels normal. He has residual ischemic cardiomyopathy. Last known EF 25 to 30%. He has a single lead ICD in place. Cardiac catheterization 07/09/2020 showed patent stent proximal LAD. Last nuclear stress test was done on 12/03/2021 showing a large anterior wall GA with minimal cass-infarct ischemia. Last echocardiogram was 09/24/2024 shows EF 25-30%, mid anterior septal segment akinetic, apex segment aneurysmal. He has atypical sounding chest discomfort. Will continue on aspirin indefinitely. Continue atorvastatin with ideal LDL goal less than 70. Labs done on 12/21/2023 showed LDL 63. Continue metoprolol and Entresto for neurohormonal modulation. The importance of strict med compliance reviewed with him. He is due for labs, orders placed. Signs and symptoms of angina reviewed. Emergency care if ever needed for concerning symptoms. Cardiology follow-up 3 months, sooner if needed. (2) Ischemic cardiomyopathy: Code(s): I25.5 - Ischemic cardiomyopathy Category: Medical Plan: Last echo with EF 25-30 %. Has ICD for primary prevention. Euvolemic on examination today. Ongoing medical management with Entresto, metoprolol, Jardiance for neurohormonal modulation. Signs and symptoms of heart failure reviewed (3) ICD (implantable cardioverter-defibrillator) in place: Comment: [employer] single-chamber ICD for primary prevention, implanted 09/18/2020 Code(s): Z95.810 - Presence of automatic (implantable) cardiac defibrillator Category: Medical Plan: Single-chamber ICD in place. Office interrogation last visit shows device is functioning normally. Episodes of tachycardia seen, V rates in the 150s to 160. This could be sinus tach versus SVT. He was seen by electrophysiology 05/24/2023 and plan to continue medical management with metoprolol. Will have him continue metoprolol to tartrate 150 mg b.i.d. For ICD, He has remote monitoring in use. Next office interrogation next visit (4) HTN (hypertension): Code(s): I10 - Essential (primary) hypertension Category: Medical Plan: Blood pressure goal less than 130/80, well controlled at this time. No med changes made. (5) SVT (supraventricular tachycardia): Code(s): I47.1 - Supraventricular tachycardia Category: Medical Plan: As above. Brief episodes of tachycardia seen on remote monitoring and device checks. He has SVT/ST, brief episodes with reports of palpitations. Continue metoprolol. Plan I discussed with the patient the management of ischemic cardiomyopathy with a reduced ejection fraction and the benefits and risks of continuing current medications including Metoprolol, Entresto, Aspirin, Atorvastatin, and Jardiance. The echocardiogram results showing stability were reassuring, and I emphasized the importance of checking labs including monitoring of liver enzymes due to elevated family history risk and atorvastatin use. I highlighted the role of current medications in symptom management and stressed adherence to his regimen. Lifestyle modifications were suggested to address weight concerns that could affect symptoms and comorbidities. Orders: Orders Lipid Panel Today I21.09 - ST elevation (STEMI) myocardial infarction involving other coronary artery of anterior wall Complete Blood Count Auto Diff Today I21.09 - ST elevation (STEMI) myocardial infarction involving other coronary artery of anterior wall Comprehensive [place]. Panel Fast Today I21.09 - ST elevation (STEMI) myocardial infarction involving other coronary artery of anterior wall Patient Instructions: - Continue all prescribed medications as directed and do not adjust dosages without consulting me. - Monitor your symptoms, specifically any changes in your breathing or chest pain. - Schedule and complete blood work to check lipids and liver function as planned. - Consider making lifestyle changes to help with weight management, including incorporating more activity as tolerated and dietary adjustments. - Return for follow-up at the scheduled appointment or sooner if symptoms worsen. - Seek emergency care if experiencing severe chest pain or new, significant symptoms. Patient was informed and verbally consented to the use of an ambient scribe for clinic note documentation during this visit. Visit time spent on chart review, interview, assessment, orders, documentation. Coding Level of Care Code Est Pt Level 4 (41459) Complex EM visit Add On G2211 Diagnoses Anterior wall myocardial infarction I21.09 Ischemic cardiomyopathy I25.5 ICD (implantable cardioverter-defibrillator) in place Z95.810 HTN (hypertension) I10 SVT (supraventricular tachycardia) I47.1 Time Spent (min) 28
[2024-10-01 13:32] VITALS: BP 114/82; PULSE 86; BMI 35.3
--- OUTSIDE RECORDS SUMMARY | 2024-10-01 15:57 | XMS_ITS | Data Portability ---
Author Organization [facility], [address] Address [address] [place] [address] Assessment No assessment recorded. Plan of Treatment Reminders Order Date Submit Date Provider Last Modified By Organization Details Last Modified Time Details Appointments None recorded. Lab SARS CoV 2 (COVID-19) Ag, QL, IA, upper respiratory specimen 2023 [email or web address] [facility]1009_[facility], [address] [place] [address], [address], 11:44:47 Referral None recorded. Procedures None recorded. Surgeries None recorded. Imaging None recorded. Medication Orders benzonatate 200 mg capsule 2023 024 [email or web address] [facility][id number], [address] [place], [address], 11:44:45 fluticasone propionate 50 mcg/actuati on nasal spray,suspe nsion 2023 024 [email or web address] [facility][id number], [address] [place], [address], 20:45:02 albuterol sulfate HFA 90 mcg/actuati on aerosol inhaler 2023 024 [email or web address] [facility][id number], [address] [place], [address], 11:44:45 Patient TargetsNo targets recorded. Patient Instructions Encounter Date Encounter Id Patient Instructions Last Modified By Organization Details Last Modified Time 02/07/2024 [id number] dizziness: care instructions [email or web address] Not available 02/07/2024 11:44:45 Reason for Referral None Reported. Results Created Date Observation Date Name Description Value Unit Range Abnormal Flag Note LastModifiedBy Organization Detail LastModifiedTime 02/07/2002/07/2024 SARS CoV 2 (COVI D-19) Ag, QL, IA, upper respi rator y speci men Unknown Analyte negati ve Not Available [address] [place] [address], [address], 02/07/2024 11:24:53 Result Notes None recorded. Problems Name Problem SNOMED Code Status Onset Date Resolution Date Notes Provider Name and Address Organization Details Recorded Time Anxiety 69893199 Active KIEL Longoria - [facility] 02/07/2024 [...] Last Updated DateTime 172.72 cm 34.7 kg/m2 090729. 06 g 98 % 98 % 87 [...] SNOMED-CT Code Diagnosis ICD10 Code Diagnosis Note [id number] [address] [place] [address] 03/11/2020 08:55:03 03/11/2020 12:15:46 [id number] [address] [place] [address] 07/04/2019 10:50:44 07/04/2019 12:07:12 [id number] [address] [place] [address] 06/17/2021 14:04:23 06/17/2021 14:54:33 [id number] KIEL Martin [address] [place] [address] 02/07/2024 11:17:40 02/07/2024 11:36:21 Viral upper respiratory tract infection 981131708 J06.9 You were seen today for body [...] tissue then throw the tissue in the trash.Iksha n your hands often. Wash your hands often with soap and water for at least 20 seconds, especially after going to the bathroom; before eating; and after blowing your nose, coughing, or sneezing. If soap and water are not readily available, use an alcohol-ba sed hand account support associate with at least 60% alcohol. Always wash [...] symptoms or concerns. Thank you for using [employer] today, please feel free to contact our [...] Patton Member ID Guarantor Name 02/07/2024 1 [facility] [id number] Chaz Hartmann [id number] Chaz Hartmann 02/07/2024 1 [facility] (HMO) [id number] Chaz Hartmann [id number] Chaz Hartmann 02/07/2024 [employer] Chaz Hartmann Notes Date Note Type Note Provider Name and Address Organization Details Recorded Time 02/07/2024 text/html 48 y/o male here with cough, congestion, some SOB, fatigue and dizziness for the past week. taking OTC cold meds with some improvement KIEL Martin [address] [place], [address], [place] - [facility] 02/07/2024 11:50:30
== END 2024-10-01 14:07 | disposition home or self-care (01) ==
LOC: HO.HCS 13:30
PROVIDERS: PCP Nurse Practitioner Family; Visit Provider Nurse Practitioner Family
DX: I21.09 ST elevation (STEMI) myocardial infarction involving other coronary artery of anterior wall (principal); I25.5 Ischemic cardiomyopathy; Z95.810 Presence of automatic (implantable) cardiac defibrillator; I10 Essential (primary) hypertension; I47.10 Supraventricular tachycardia, unspecified
CPT/HCPCS: 99214

== ENCOUNTER → 2024-12-11 23:59 | Outpatient (BNV) | payer OTHER, SELFPAY ==
--- NOTE | 2024-12-22 15:24 | MHC.OFFVIS ---
Intake Visit Reasons: Remote ICD check-- [facility] Allergies No Known Allergies Allergy (Verified 10/01/24 13:34) PFSH Medical History Anterior wall myocardial infarction Nocturnal hypoxemia EVETTE (obstructive sleep apnea) Obesity (BMI 30-39.9) ICD (implantable cardioverter-defibrillator) in place HTN (hypertension) CAD (coronary artery disease) Tobacco abuse Ischemic cardiomyopathy NSVT (nonsustained ventricular tachycardia) Surgical History Hx of colonoscopy History of esophagogastroduodenoscopy (EGD) H/O heart artery stent H/O hernia repair H/O knee surgery Family History Other Mental health disorder Social History Household Members: None Housing: House Do you presently have visiting nurse or other home services: No Unable to assess alcohol history related to: Unknown Alcohol intake: never Patient Tobacco Use Status: Current everyday Tobacco user Tobacco use type: Cigarette Cigarettes Per Day: 10 Years Smoked: 30 e-Cigarette/Vaping Use: Never Used Second Hand Smoke Exposure: No Advance Directives Date on File: 09/14/20 service: No Current occupational status: employed Current occupation: [employer] - Right Handed Cognitive needs: No Hearing needs: No Vision needs: No Office Procedures Cardiac Device Check Cardiac Device Check Details: ICD Good battery No device therapies. Short episodes of NSVT recorded. [id number] Cardiac Device Interrogation, pacemaker or defibrillator Procedure code (CPT) selection complete Assessment & Plan Assessment & Plan (1) Ischemic cardiomyopathy: Code(s): I25.5 - Ischemic cardiomyopathy Category: Medical Plan v Coding Level of Care Code Procedure Only Diagnoses Ischemic cardiomyopathy I25.5 CPT Codes Cardiac Device Check - Cardiac Device 14: [id number] Cardiac Device Interrogation, pacemaker or defibrillator ([id number])
== END ==
PROVIDERS: PCP Nurse Practitioner Family; Visit Provider Internal Medicine Cardiovascular Disease
DX: I25.5 Ischemic cardiomyopathy (principal); Z95.810 Presence of automatic (implantable) cardiac defibrillator
CPT/HCPCS: 93295

== ENCOUNTER 2024-12-25 08:46 | Emergency (ER) | payer OTHER, SELFPAY ==
--- NOTE | 2024-12-25 | ECG_ITS ---
Test Reason : chest pain Blood Pressure : */* mmHG Vent. Rate : 83 BPM Atrial Rate : 83 BPM P-R Int : 174 ms QRS Dur : 96 ms QT Int : 396 ms P-R-T Axes : 50 -24 9 degrees QTcB Int : 465 ms Normal sinus rhythm Moderate voltage criteria for LVH, may be normal variant ( R in aVL , Osei product ) Anteroseptal infarct (cited on or before 20-Jul-2018) Abnormal ECG When compared with ECG of 30-Dec-2020 09:15, Questionable change in initial forces of Anterior leads QT has lengthened Referred By: Generic ED Physician Electronically Signed By: Francisco Frederick
--- NOTE | ~2024-12-25 | XR_ITS ---
EXAMINATION: XR CHEST CLINICAL INFORMATION: SOB COMPARISON: December 30, 2020 TECHNIQUE: Frontal view of the chest was obtained. FINDINGS: No hyperinflation. No consolidation, pleural effusion or pneumothorax. Cardiomediastinal silhouette size is normal. Left-sided pacemaker with a single intact electrode leads in likely, the right ventricle. XR/XR chest 1V IMPRESSION: No acute airspace disease. Stable chest. Electronically signed by: Sher Pruitt MD 12/25/2024 09:51 AM EDT
[2024-12-25 08:56] VITALS: BP 190/115; PULSE 86; RESP 18; TEMP 37.2; O2SAT 95; BMI 35.4
[2024-12-25 09:06] LABS: MANUAL DIFF FLAG NO
[2024-12-25 09:08] LABS: Hematocrit 44.0 % (42.0-52.0); Hemoglobin 15.5 g/dl (14.0-18.0); Imm Gran Abs Auto 0.02 X10*3/uL (0.00-0.03); Imm Gran Pct Auto 0.3 % (0.0-0.4); Lymphocytes Absolute Auto 1.7 X10*3/uL (1.2-4.9); Mean Corpuscular HGB Conc 35.2 g/dl (31.0-36.0); Mean Corpuscular Hemoglobin 33.1 pg (27.0-33.0); Mean Corpuscular Volume 94.0 fL (80.0-98.0); NRBC Abs Auto 0.000 X10*3/uL (0.0-0.012); NRBC Pct Auto 0.0 /100WBC (0.0-0.2); Platelet Count 185 X10*3/uL (160-400); Red Blood Count 4.68 X10*6/uL (4.60-5.80); White Blood Count 7.4 X10*3/uL (4.8-10.8)
--- NOTE | 2024-12-25 09:16 | ED_ITS ---
HPI - Chest Pain General Chief Complaint: Chest Pain Stated Complaint: CP Time Seen by Provider: 12/25/24 09:12 Source: patient Mode of arrival: ambulatory Limitations: no limitations History of Present Illness ED Provider: Brittanie Xiao PA-C HPI narrative: 49-year-old male with history of ischemic cardiomyopathy presenting to the emergency department today for evaluation of substernal chest pain that started around approximately 04:30 this morning and lasted for 3 hours. He reports that baseline and it has remained the always getting sharp shooting shocks which he suspects is from his ICD. This is not new. Reports when the pain was really strong it made him feel short of breath. He does not describe it as waxing or waning or feeling like heartburn to him. He is feeling much better now. He only took 81 mg of his aspirin today. At baseline he has shortness of breath with exertion. Patient is denying any PND, orthopnea or edema. He does not do routine exercise. He denies any dizziness or syncope or falls. No current Mack palpitations but did have them when he was feeling his chest pain. Medical history significant for anterior wall FL (12/2017, with ANTONIETA to the LAD at that time), nocturnal hypoxia, EVETTE, ICD, hypertension, CAD, and SVT. 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 His last ICD check was 4 days ago, on December 22. Patient states he usually gets an echo once a year by him. His last in-person visit with Dr. Frederick was on 02/08/2023. EF at that time was 30- 35% s/p ICD placement (this was his 5 month checkup). Last Echo on 09/24/24: Conclusions: - The left ventricular systolic function is severely decreased. The visually estimated ejection fraction is between 25-30%. 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 - No obvious valvular pathology seen on this study. . He follolwed up with cardiology and saw Juan SCHMID on 10/01/24 for review of this echo: plan to continue aspirin indefinitely. Plan to continue metoprolol and entresto for neurohormonal modulation. MD complaint: chest pain and chest heaviness Pertinent past history: coronary artery disease and prior FL Related Data Home Medications ?Medication ?Instructions ?Recorded ?Confirmed aspirin 81 mg tablet,delayed 81 mg PO DAILY 04/14/20 0 01/02/25 release (Adult Aspirin Regimen) methadone 10 mg/mL oral 22 mg PO DAILY 12/20/2312/23 concentrate (Methadone Intensol) metoprolol succinate 100 mg 200 mg PO BID 01/02/2503/18 tablet,extended release 24 hr Previous Rx's ?Medication ?Instructions ?Recorded blood pressure monitor #1 ea 09/24/20 betamethasone dipropionate 0.05 % 1 appl topical DAILY PRN skin 08/25/22 topical cream irritation #45 grams bismuth subsalicylate 262 mg 2 tab PO QID 14 days #112 tabs 12/22/23 chewable tablet omeprazole 20 mg capsule,delayed 20 mg PO BID 14 days #28 caps 12/22/23 release omega-3 acid ethyl esters 1 gram 1 cap PO BID #180 cap s 03/04/24 capsule empagliflozin 10 mg tablet 10 mg PO DAILY #90 tabs 02/15 (Jardiance) atorvastatin 80 mg tablet 80 mg PO BEDTIME #90 tabs sacubitril 49 mg-valsartan 51 mg 1 tab PO BID 90 days #180 tabs 12/16/24 tablet (Entresto) buspirone 30 mg tablet 30 mg PO BID 90 days #180 ta bs 01/02/25 semaglutide (weight loss) 0.25 0.25 mg (0.5 mL) subcut QWEEK #2 mL 01/02/25 mg/0.5 mL subcutaneous pen injector (Wegovy) sertraline 25 mg tablet 25 mg PO DAILY 90 days #90 t abs 01/02/25 Allergies Allergy/AdvReac Type Severity Reaction Status Date / Time No Known Allergies Allergy Verified 01/02/25 11:44 [facility] Past Medical History Medical History Anterior wall myocardial infarction Nocturnal hypoxemia EVETTE (obstructive sleep apnea) Obesity (BMI 30-39.9) ICD (implantable cardioverter-defibrillator) in place HTN (hypertension) CAD (coronary artery disease) Tobacco abuse Ischemic cardiomyopathy NSVT (nonsustained ventricular tachycardia) Surgical History Hx of colonoscopy History of esophagogastroduodenoscopy (EGD) H/O heart artery stent H/O hernia repair H/O knee surgery Family History Family History Other Mental health disorder Social History Social History Household Members: None Housing: House Do you presently have visiting nurse or other home services: No Unable to assess alcohol history related to: Unknown Alcohol intake: current Alcohol intake frequency: holidays/special occasions only Patient Tobacco Use Status: Current everyday Tobacco user Tobacco use type: Cigarette Cigarettes Per Day: 10 Years Smoked: 30 e-Cigarette/Vaping Use: Never Used Second Hand Smoke Exposure: No Advance Directives Date on File: 09/14/20 service: No Current occupational status: employed Current occupation: [employer] - Right Handed Cognitive needs: No Hearing needs: No Vision needs: No Physical Exam 2 Exam: Exam: General: Appears in no acute distress, appears well nourished body habitus is overweight , appears stated age. No septic or ill-appearing. Vitals reviewed normal, PMH/Social and Surgical hx reviewed including allergies and current medications. - reviewed for prior visits here and reviewed as it pertains to similar chief complaint. Head: Normocephalic, no obvious trauma or skin lesions noted. Eyes: EOMI, conjunctiva and sclerae are clear ENMT: moist oral mucosa, uvula midline no trismus Neck: trachea midline, no lymphadenopathy tolerating secretions no pain with neck movement no midline tenderness step-offs or deformities of entire spine no JVD Cardiovascular: peripheral perfusion normal, Regular heart rate, regular rhythm, pacemaker audible Respiratory: no respiratory distress, lungs clear to auscultation bilaterally Abdomen: nondistended, no abdominal bruit soft Extremities: warm and moving without difficulty Psych: Cooperative Neuro: Alert and oriented. Vital Signs: Vital Signs: Last Vital Signs Temp 98.2 F 12/25/24 12:53 Pulse 78 12/25/24 12:53 Resp 17 12/25/24 12:53 BP 158/97 H 12/25/24 12:53 Pulse Ox 94 12/25/24 12:53 O2 Del Method Room Air 12/25/24 12:53 BMI result Body Mass Index 35.4 Medications Administered Discontinued Medications Generic Name Dose Route Start Last Admin Trade Name Raghav PRN Reason Stop Dose Admin Aspirin 243 mg 12/25/24 09:22 12/25/24 09:26 Aspirin 81 Mg Tab.Chew PO 12/25/24 09:23 243 mg ONCE ONE Administration Medical Decision Making Medical Decision Making [facility] Narrative: 49-year-old male with past medical history significant for prior FL of anterior wall FL 12/2017, with ANTONIETA to the LAD at that time. He is status post defibrillator as well. Onset of central chest pain at 04:30 this morning approximately 5 hours ago. Patent better controlled now. He already took 81 mg of aspirin prior to arrival I ordered an additional 324 mg while here. He is seen at bedside reporting no acute pain therefore morphine was deferred. It does not appear to be in any distress at this time. We will obtain cardiac labs and EKG. 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 His pulses are equal and symmetric he is normotensive this is not seem to be consistent where dissection at this time therefore CTA was deferred. EKG: LVH, QTC interval of 465 milliseconds, anteroseptal infarct which is present from the 07/20/2018 no acute changes no obvious evidence for STEMI at this time no malignant arrhythmia 1048: Patient reevaluated bedside, still doing well, no pain. First troponin is 9.0, reassuring, will trend second one given onset < 6 hours ago. 1240: Second trop is 7. ACS can be ruled out. A life-threatening cause of patient's pain is present today. He will be discharged to home with cardiology follow-up. Differential Diagnosis Differential Diagnoses: The differential diagnosis associated with the presentation includes see [facility] Admission/Observation Consideration of admission/observation: Escalation of care including admission/observation considered Lab Data [facility] Lab Attestation statement: I reviewed the patient's lab results. 12/25/24 09:03 12/25/24 09:57 Labs: Lab Results 12/25/24 12/25/24 12/25/24 Range/Units 09: 09:57 12:05 WBC 7.4 (4.8-10.8) X10*3/uL RBC 4.68 (4.60-5.80) X10*6/uL Hgb 15.5 (14.0-18.0) g/dl Hct 44.0 (42.0-52.0) % MCV 94.0 (80.0-98.0) fL MCH 33.1 H (27.0-33.0) pg MCHC 35.2 (31.0-36.0) g/dl RDW 13.2 (11.0-16.0) % Plt Count 185 (160-400) X10*3/uL MPV 10.7 (9.4-12.4) fL Immature Gran % (Auto) 0.3 (0.0-0.4) % Neut % (Auto) 66.6 (45-73) % Lymph % (Auto) 23.0 (20-40) % [place] % (Auto) 7.9 (2-11) % Eos % (Auto) 1.5 (0-4) % Baso % (Auto) 0.7 (0-2) % Lymph # (Auto) 1.7 (1.2-4.9) X10*3/uL [place] # (Auto) 0.6 (0.1-1.2) X10*3/uL Eos # (Auto) 0.1 (0.0-0.4) X10*3/uL Baso # (Auto) 0.1 (0.0-0.2) X10*3/uL Abs Immat Gran (auto) 0.02 (0.00-0.03) X10*3/uL Absolute Neuts (auto) 5.0 (2.0-8.3) x10*3/uL Absolute Nucleated RBC 0.000 (0.0-0.012) X10*3/uL Nucleated RBC % (auto) 0.0 (0.0-0.2) /100WBC Sodium 143 (135-145) mmol/L Potassium 3.8 (3.3-5.1) mmol/L Chloride 108 (96-108) mmol/L Carbon Dioxide 21 L (22-29) mmol/L Anion Gap 18 (12-20) BUN 10 (9-16) mg/dL Creatinine 0.68 (0.5-1.4) mg/dL Estim Creat Clear Calc 151.4 Estimated GFR > 60 Random Glucose 115 (60-115) mg/dL Calcium 8.4 D (8.4-10.2) mg/dL Troponin I High Sens 9.0 7.4 (<3.5-35.0) ng/L Independent Interpretation I performed an independent interpretation of an: EKG and Plain X-Ray Radiology Impression Discussion of test interpretation with radiology: I have reviewed the radiologist's reading. External Record Review External record reviewed: Inpatient record, Office record, Outpatient record, Prior outpatient labs, Prior outpatient radiology and Primary care record Tests considered The following testing was considered but not selected: Would have considered CT of the chest however perc score 0 can be ruled out clinically Social Determinants Patient?s care significantly limited by Social Determinants of Health including: Other Social Determinant of Health Discharge Plan Discharge Clinical Impression: History of ischemic cardiomyopathy, ICD (implantable cardioverter- defibrillator) in place Chest pain Qualifiers: Chest pain type: unspecified Qualified Code(s): R07.9 - Chest pain, unspecified Patient Disposition: Home, Self-Care Instructions: Chest Pain (ED) Additional Instructions: You were seen in the emergency department today due to chest pain that was almost completely resolved upon arrival. You had a cardiology workup today that shows no ischemic heart changes today. Unfortunately he already had very poor heart function. Is recommended that you do follow up outpatient with your tile grinder and for any new or concerning symptoms certainly please return to the emergency department. Prescriptions: No Action omega-3 acid ethyl esters 1 gram capsule 1 cap PO BID Qty: 180 1RF Jardiance 10 mg tablet 10 mg PO DAILY Qty: 90 3RF atorvastatin 80 mg tablet 80 mg PO BEDTIME Qty: 90 3RF Entresto 49-51 mg tablet 1 tab PO BID 90 Days Qty: 180 3RF methadone [Methadone Intensol] 10 mg/mL concentrate 22 mg PO DAILY betamethasone dipropionate 0.05 % cream 1 appl topical DAILY PRN (Reason: skin irritation) Qty: 45 2RF aspirin [Adult Aspirin Regimen] 81 mg tablet,delayed release (DR/EC) 81 mg PO DAILY (DME) blood pressure monitor Kit See Rx Instructions .ROUTE .MEDSUPPLY Qty: 1 0RF Rx Instructions: As directed omeprazole 20 mg capsule,delayed release(DR/EC) 20 mg PO BID 14 Days Qty: 28 0RF bismuth subsalicylate 262 mg tablet,chewable 2 tab PO QID 14 Days Qty: 112 0RF Wegovy 0.25 mg/0.5 mL pen injector 0.25 mg subcut QWEEK Qty: 2 0RF Rx Instructions: administer weeks 1 through 4 of therapy metoprolol succinate 100 mg tablet extended release 24 hr 200 mg PO BID Rx Instructions: changing back to succinate - Take 2 tablets BID sertraline 25 mg tablet 25 mg PO DAILY 90 Days Qty: 90 0RF buspirone 30 mg tablet 30 mg PO BID 90 Days Qty: 180 1RF Referrals: Francisco Frederick MD [Physician, Cardiology] Referral Note: ED follow up Stand Alone Forms: Work/School Release Interventions: ED Discharge Assessment Last Done: 12/25/24 12:53 Discharge Date/Time: 12/25/24 12:54 Print Language: Uzbek
[2024-12-25 09:29] VITALS: BP 158/97; PULSE 78; RESP 17; O2SAT 94
[2024-12-25 10:15] LABS: Anion Gap 18 (12-20); Blood Urea Nitrogen 10 mg/dL (9-16); Calcium 8.4 mg/dL (8.4-10.2); Carbon Dioxide 21 mmol/L (22-29); Chloride 108 mmol/L (96-108); Creatinine Clr Calc Pharmacy 151.4; Estimated Glomerular Filt Rate > 60; Potassium 3.8 mmol/L (3.3-5.1); Sodium 143 mmol/L (135-145)
[2024-12-25 10:24] LABS: Troponin-I High Sensitivity 9.0 ng/L (<3.5-35.0)
--- OUTSIDE RECORDS SUMMARY | 2024-12-25 11:29 | XMS_ITS | Clinical Summary ---
Author Organization [facility] Address [address] [place] [id number] Phone Care Team Providers Care [employer] Counselor Name Role Phone Juan Cadet NP Primary Care Provider + Social History Tobacco Use Types Packs/Day Years Used Date Smoking Tobacco: Never Assessed Education Answer Date Recorded Are you interested in more education? Not on racheal e 05/02/2023 Are you concerned about learning? Not on file 05/02/2023 No 05/02/2023 No 05/02/2023 Digital Access Answer Date Recorded No 05/02/2023 No 05/02/2023 Reliable internet access at home? Not on file 05/02/2023 Device with a working camera? Not on file Sex and Gender Information Value Date Recorded Sex Assigned at Not on file Legal Sex Male 11:37 AM EST Gender Identity Not on file Sexual Orientation Not on file Plan of Treatment Health Maintenance Due Date Last Done Comments Adult Td,Tdap Booster 1976 LIPID PANEL 1976 DEPRESSION SCREENING 1988 SMOKING Hx and SMOKELESS TOB ACCO SCREENING 1989 HEPATITIS C SCREENING 1994 HIV ONE-TIME SCREENING (18-6 5 YEARS) 1994 COLOGUARD 2021 COLONOSCOPY 2021 COLORECTAL CANCER SCREENING 2021 FIT TEST 2021 FOBT 2021 SIGMOIDOSCOPY 2021 VIRTUAL COLONOSCOPY 2021 INFLUENZA VACCINE (#1) 2024 COVID-19 VACCINE ( - 2023-2 5 season) 2024 HEPATITIS A VACCINES Aged Out No long er eligible based on patient's age to complete this topic HIB VACCINES Aged Out No longer eligi ble based on patient's age to complete this topic MENINGOCOCCAL VACCINES (ACWY) Aged Out No longer eligible based on patient's age to complete this topic MENINGOCOCCAL VACCINES (B) Aged Out N o longer eligible based on patient's age to complete this topic PNEUMOCOCCAL VACCINES (0-49 years) Aged Out No longer eligible based on patient's age to complete this topic Medical Devices Not on file Insurance [facility] Care Teams [employer] Counselor Relationship Specialty Start Date End Date Juan Cadet NP [facility] [address], [place] [id number] PCP - General Nurse Practitioner 04/14/23 Additional Source Comments The information contained in this document represents components of the legal health record. It is not the complete legal health record.[facility]
[2024-12-25 12:31] LABS: Troponin-I High Sensitivity 7.4 ng/L (<3.5-35.0)
[2024-12-25 12:53] VITALS: BP 158/97; PULSE 78; RESP 17; TEMP 36.8; O2SAT 94
== END 2024-12-25 12:54 | disposition home or self-care (01) ==
PROVIDERS: Physician Assistant Medical; Emergency Provider Emergency Medicine Emergency Medical Services; PCP Nurse Practitioner Family
DX: R07.9 Chest pain, unspecified (principal); I10 Essential (primary) hypertension; G47.33 Obstructive sleep apnea (adult) (pediatric); Z95.810 Presence of automatic (implantable) cardiac defibrillator; Z72.0 Tobacco use; Z86.79 Personal history of other diseases of the circulatory system; I25.2 Old myocardial infarction; Z79.899 Other long term (current) drug therapy
CPT/HCPCS: 36415; 71045; 80048; 84484; 85025; 93005; 99283; 99284

== ENCOUNTER → 2024-12-25 08:49 | Outpatient (BNV) | payer OTHER, SELFPAY | PROVIDERS: Emergency Provider Emergency Medicine Emergency Medical Services; PCP Nurse Practitioner Family; Visit Provider Internal Medicine Cardiovascular Disease | DX: I25.2 Old myocardial infarction (principal) | CPT/HCPCS: 93010 ==

== ENCOUNTER → 2024-12-25 09:23 | Outpatient (BNV) | payer OTHER, SELFPAY | PROVIDERS: Emergency Provider Emergency Medicine Emergency Medical Services; PCP Nurse Practitioner Family; Visit Provider Radiology Diagnostic Radiology | DX: R06.02 Shortness of breath (principal) | CPT/HCPCS: 71045 ==

== ENCOUNTER 2025-01-02 10:59 | Outpatient (AMB) | payer OTHER, SELFPAY ==
[2025-01-02 11:02] VITALS: BP 130/90; PULSE 77; RESP 16; O2SAT 98; BMI 35.4
--- NOTE | 2025-01-02 11:02 | A.OFFPC_ITS ---
Vital Signs 01/02/25 11:02 01/02/25 11:58 Height 5 ft 7 in Weight 226 lb BMI 35.4 BP 130/90 H 140/90 H Blood Pressure Location Lt brachial Lt brachial Position Sitting Sitting Respiration 16 Pulse 77 Pulse Source Pulse Oximeter Pulse Oximetry (%) 98 Oxygen Delivery Method Room Air Intake Visit Reasons: PE Allergies No Known Allergies Allergy (Verified 01/02/25 11:44) Medication List - Last Reconciled 01/02/25 by SHARMAINE Mcgee- aspirin (Adult Aspirin Regimen) 81 mg PO DAILY atorvastatin 80 mg PO BEDTIME betamethasone dipropionate 0.05% 1 appl topical DAILY PRN bismuth subsalicylate 2 tabs PO QID 14 days blood pressure monitor As directed buspirone 15 mg PO BID 90 days empagliflozin (Jardiance) 10 mg PO DAILY methadone (Methadone Intensol) 22 mg PO DAILY metoprolol succinate ER 200 mg PO BID omega-3 acid ethyl esters 1 cap PO BID omeprazole 20 mg PO BID 14 days sacubitril-valsartan 49-51 mg (Entresto) 1 tab PO BID 90 days semaglutide (weight loss) (Wegovy) 0.25 mg (0.5 mL) subcut QWEEK Tobacco use date assessed: 01/02/25 Dental Screening Dental Screen Date: 01/02/25 Did you have a dental visit in the last 12 months?: Yes Did you have a dental problem in the last 6 months where you did not have access to dental care?: No Was dental information given to patient?: Patient has dentist HPI PE HPI Details History of Present Illness The patient is a 49-year-old male presenting with a physical exam. He denies any fevers or chills but reports intermittent chest discomfort described as chest pressure that does not radiate. He is currently under regular cardiology care and was last seen in the emergency room. The patient also experiences abdominal discomfort that radiates from the right side to the left. There is no report of active fevers or blood in the stool. The patient is noted to be obese, and an abdominal ultrasound is planned. Laboratory work including liver and kidney function tests is being conducted. anxiety: will increased his buspirone and start a low dose sertraline obesity: dyslipidemia and Hx of obesity, GA, cardiomyopathy, belongs on a glp-1 agonist, no hx of pancreatitis. HTN: just started yesterday, new dose of metoprolol from 150mg bid to 200mg bid Health Maintenance Social History Review of Systems - General: Denies fevers or chills - Cardiovascular: Reports intermittent c hest discomfort, denies radiation - Gastrointestinal: Reports abdominal di scomfort radiating from right to left, denies active fevers or blood in stool -denies urinary symptoms -denies any si or hi Physical Exam General: Cooperative, healthy appearing, comfortable, no acute distress and well developed, obese Orientation: Patient oriented x3 Limitations: No limitations Head: Normal to inspection Ears: Hearing grossly normal bilaterally Nose: Normal external nose present Face and sinus: Normal facial exam Eyes: Appearance normal, both eyes and all related structures Neck: Normal visual inspection and Yes full ROM Respiratory: Normal respiratory effort and able to speak in complete sentences. Clear to auscultation bilaterally Cardiovascular: Regular rate and rhythm. Normal S1 and S2 GI: Normal to inspection. Soft to palpation and nontender, Bs present : testicles without masses/lesions and no hernias appreciated Skin: No rashes or lesions noted Neuro: Patient oriented x3 Extremities: Normal to inspection Results Plan 1. Intermittent Chest Discomfort The patient reports intermittent chest discomfort described as chest pressure without radiation. He is under regular cardiology care and was last seen in the emergency room on 12/26/24, anything acute ruled out. Next cardio appt is in 2.5 weeks approx. 2. Abdominal Discomfort The patient experiences abdominal discomfort radiating from the right side to the left. An abdominal ultrasound is planned, and laboratory work including liver and kidney function tests is being conducted. 3. Obesity The patient is noted to be obese, and this is being considered in the management plan. 4. HTN: increased BB yesterday, pt iesha gonzalez send me BPs from home in the near future * follow up with cardio already scheduled [facility] Medical History Anterior wall myocardial infarction Nocturnal hypoxemia EVETTE (obstructive sleep apnea) Obesity (BMI 30-39.9) ICD (implantable cardioverter-defibrillator) in place HTN (hypertension) CAD (coronary artery disease) Tobacco abuse Ischemic cardiomyopathy NSVT (nonsustained ventricular tachycardia) Surgical History Hx of colonoscopy History of esophagogastroduodenoscopy (EGD) H/O heart artery stent H/O hernia repair H/O knee surgery Family History Other Mental health disorder Social History (Reviewed 01/02/25 @ 12:09 by Juan Cadet [facility] Household Members: None Housing: House Do you presently have visiting nurse or other home services: No Unable to assess alcohol history related to: Unknown Alcohol intake: current Alcohol intake frequency: holidays/special occasions only Patient Tobacco Use Status: Current everyday Tobacco user Tobacco use type: Cigarette Cigarettes Per Day: 10 Years Smoked: 30 e-Cigarette/Vaping Use: Never Used Second Hand Smoke Exposure: No Advance Directives Date on File: 09/14/20 service: No Current occupational status: employed Current occupation: [employer] - Right Handed Cognitive needs: No Hearing needs: No Vision needs: No Questionnaire PHQ-9 Over the last 2 weeks, how often have you been bothered by any of the following problems? 1. Little interest or pleasure in doing things: not at all 2. Feeling down, depressed, or hopeless: several days 3. Trouble falling or staying asleep, or sleeping too much: several days 4. Feeling tired or having little energy: nearly every day 5. Poor appetite or overeating: several days 6. Feeling bad about yourself - or that you are a failure or have let yourself or your family down: several days 7. Trouble concentrating on things, such as reading the newspaper or watching television: several days 8. Moving or speaking so slowly that other people could have noticed. Or the opposite - being so fidgety or restless that you have been moving around a lot more than usual: more than half the days 9. Thoughts that you would be better off or of hurting yourself in some way: not at all Total score: 10 Depression Screening Interpretation: Positive (denies any si or hi, increased buspirone, does not want a therapist currently) Depression Screening Follow-up: Existing condition and New Medication prescribed Depression Screening Done: Yes 78291 - PHQ-9 Billing: Patient declined-do not bill Source: Developed by Drs. Carolina Maldonado Kurt Kroenke and colleagues, with an educational aaliyah from [employer]. Thrive Questionnaire Date Thrive assessed: 12/26/24 I am a: Patient What is your living situation today?: I have a steady place to live Within the past 12 months, did the food you bought not last and you didn't have the money to get more?: Never true Within the past 12 months, did you worry whether your food would run out before you got money to buy more?: Never true Do you have trouble paying for medicines?: No Do you have trouble getting transportation to medical appointments?: No Do you have trouble paying your heating and electricity bill?: No Do you have trouble taking care of your child, family member or friend?: No Do you have trouble with day-to-day activities such as bathing, preparing meals, shopping, managing finances, etc.?: No Are you currently unemployed and looking for a job?: No Are you interested in more education?: Yes Please select the resources that you would like help with: None Currently or been in a relationship where the following occur: No concerns reported THRIVE Score: 0 AUDIT C Alcohol Use Questionnaire (AUDIT-C) 1. How often do you have a drink containing alcohol?: Never 2. How many drinks containing alcohol do you have on a typical day when you are drinking?: 5 or 6 3. How often do you have six or more drinks on one occasion?: Never Total Score: 2 VERONICA-7 AMB Questionnaire VERONICA-7 Date VERONICA - 7 assessed: 01/02/25 Feeling nervous, anxious, or on edge: 1 = Several days Not being able to stop or control worryin = Several days Worrying too much about different things: 1 = Several days Trouble relaxin = Several days Being so restless that it is hard to sit still: 1 = Several days Becoming easily annoyed or irritable: 0 = Not at all Feeling afraid as if something awful might happen: 1 = Several days Total VERONICA-7 score (0-4 normal; 5-9 mild; 10-14 moderate; 15-21 severe): 6 Source: Developed by Carolina Neville Kurt Kroenke and colleagues, with an educational aaliyah from [employer]. VERONICA-7 Assessment Billing VERONICA-7 Assessment Tool: VERONICA-7 Assessment 98476 Physical exam (Primary Care) Vital Signs: Last Vital Signs Pulse 77 01/02/25 11:02 Resp 16 01/02/25 11:02 BP 130/90 H 01/02/25 11:02 Pulse Ox 98 01/02/25 11:02 Oxygen Delivery Method Room Air 01/02/25 11:02 BMI result Body Mass Index 35.4 Tobacco/Smoking Status: Tobacco use Status Tobacco use date assessed 01/02/25 01/02/25 11:08 Patient Tobacco Use Status Current everyday Tobacco 01/02/25 11:04 Tobacco use type Cigarette 01/02/25 11:04 e-Cigarette/Vaping Use Never Used 01/02/25 11:04 PHQ-9: PHQ-9 Score PHQ-9: Total score 10 01/02/25 11:40 Depression Screening Interpretation: Positive (denies any si or hi, increased buspirone, does not want a therapist currently) Depression Screening Follow-up: Existing condition and New Medication prescribed Thrive Assessment: Date of Thrive Assessment Date Thrive assessed 12/26/24 01/02/25 11:04 Currently or been in a relationship where the following occur: No concerns reported Coding Level of Care Code Est Pt Level 3 (22869) Est Pt Prev Care 40-64y(18487) Diagnoses Ischemic cardiomyopathy I25.5 Encounter for routine adult physical exam with abnormal findings Z00.01 Abdominal pain R10.9 Smoker F17.200 Obesity E66.9 Chest pain R07.9 Additional Codes VERONICA-7 Assessment Billing - VERONICA-7 Assessment Tool: VERONICA-7 Assessment 05521 ([id number]) Assessment & Plan Assessment & Plan (1) Ischemic cardiomyopathy: Code(s): I25.5 - Ischemic cardiomyopathy Category: Medical (2) Encounter for routine adult physical exam with abnormal findings: Code(s): Z00.01 - Encounter for general adult medical examination with abnormal findings Category: Medical (3) Abdominal pain: Code(s): R10.9 - Unspecified abdominal pain Category: Medical (4) Smoker: Code(s): F17.200 - Nicotine dependence, unspecified, uncomplicated Category: Social Hx (5) Obesity: Code(s): E66.9 - Obesity, unspecified Category: Medical (6) Chest pain: Code(s): R07.9 - Chest pain, unspecified Category: Medical Plan . Orders: Orders UA CC w/rflx Micro + Cult Today Juan Hernandez NORBERTO Cadet I25.5 - Ischemic cardiomyopathy, Z00.01 - Encounter for general adult medical examination with abnormal findings Lipid Panel Today Juan Hernandez NORBERTO Cadet I25.5 - Ischemic cardiomyopathy, Z00.01 - Encounter for general adult medical examination with abnormal findings Complete Blood Count Auto Diff Today Juan Hernandez NORBERTO Cadet I25.5 - Ischemic cardiomyopathy, Z00.01 - Encounter for general adult medical examination with abnormal findings Comprehensive [place]. Panel Fast Today Juan Hernandez NORBERTO Cadet I25.5 - Ischemic cardiomyopathy, Z00.01 - Encounter for general adult medical examination with abnormal findings TSH reflex Free T4 Today NORBERTO Mcgee I25.5 - Ischemic cardiomyopathy, Z00.01 - Encounter for general adult medical examination with abnormal findings US abdomen complete Today NORBERTO Mcgee R10.9 - Unspecified abdominal pain Medications: New sertraline 25 mg PO DAILY 90 tabs 0RF 90 days NORBERTO Mcgee semaglutide (weight loss) (Timur) administer weeks 1 through 4 of therapy 0.25 mg (0.5 mL) subcut QWEEK 2 mL 0RF NORBERTO Mcgee Changed From buspirone 15 mg PO BID 90 days 180 tabs 1RF To buspirone 30 mg PO BID 180 tabs 1RF 90 days NORBERTO Mcgee From metoprolol succinate ER changing back to succinate - Take 1.5 tablets BID 150 mg (1.5 x 100 mg) PO BID 90 days 270 tabs 3RF To metoprolol succinate ER changing back to succinate - Take 2 tablets BID 200 mg PO BID ISABELLE ThompsonC
[2025-01-02 11:58] VITALS: BP 140/90
--- OUTSIDE RECORDS SUMMARY | 2025-01-02 15:09 | XMS_ITS | Clinical Summary ---
Author Organization [facility] Address [address] [place] [id number] Phone Care Team Providers Care Golf Coach Name Role Phone Juan Cadet NP Primary [...] Not on file Insurance [facility] Care Teams Golf Coach Relationship Specialty Start Date End Date Juan Cadet NP [facility] [address] Bullock, MARY ELLEN [id number] PCP - General Nurse Practitioner 04/14/23 Additional Source Comments The information contained in this document represents components of the legal health record. It is not the complete legal health record.[facility]
== END 2025-01-02 12:02 | disposition home or self-care (01) ==
LOC: HO.HMCC 11:00
PROVIDERS: PCP Nurse Practitioner Family; Visit Provider Nurse Practitioner Family
DX: Z00.01 Encounter for general adult medical examination with abnormal findings (principal); R07.9 Chest pain, unspecified; E66.9 Obesity, unspecified; Z68.35 Body mass index [BMI] 35.0-35.9, adult; F17.200 Nicotine dependence, unspecified, uncomplicated; I25.5 Ischemic cardiomyopathy; R10.9 Unspecified abdominal pain

== ENCOUNTER → 2025-01-02 10:59 | Outpatient (BNVA) | payer OTHER, SELFPAY | PROVIDERS: PCP Nurse Practitioner Family; Visit Provider Nurse Practitioner Family | DX: Z00.01 Encounter for general adult medical examination with abnormal findings (principal); I25.5 Ischemic cardiomyopathy; R10.9 Unspecified abdominal pain; E66.9 Obesity, unspecified; Z68.35 Body mass index [BMI] 35.0-35.9, adult; R07.9 Chest pain, unspecified; I10 Essential (primary) hypertension; F41.9 Anxiety disorder, unspecified; F17.200 Nicotine dependence, unspecified, uncomplicated; Z13.31 Encounter for screening for depression; Z13.39 Encounter for screening examination for other mental health and behavioral disorders | CPT/HCPCS: 96127 ==

== ENCOUNTER 2025-01-14 08:55 | Outpatient (AMB) | payer OTHER, SELFPAY ==
[2025-01-14 08:58] VITALS: BP 128/84; PULSE 62; BMI 34.6
--- NOTE | 2025-01-14 08:58 | MHC.OFFVIS ---
Vital Signs 01/14/25 08:58 Height 5 ft 7 in Weight 220 lb 14.451 oz BMI 34.6 BP 128/84 Blood Pressure Location Lt brachial Position Sitting Pulse 62 Pulse Source Pulse Oximeter Intake Visit Reasons: [facility] dc/ elevated heart rate/chest pain Accompanied by: Self / Same As Patient Allergies No Known Allergies Allergy (Verified 01/02/25 11:44) Medication List - Last Reconciled 01/14/25 by SAIMA Thompson aspirin (Adult Aspirin Regimen) 81 mg PO DAILY atorvastatin 80 mg PO BEDTIME blood pressure monitor As directed buspirone 30 mg PO BID 90 days empagliflozin (Jardiance) 10 mg PO DAILY methadone (Methadone Intensol) 19mg orally daily; metoprolol succinate ER 200 mg PO BID omega-3 acid ethyl esters 1 cap PO BID omeprazole 20 mg PO BID 14 days sacubitril-valsartan 49-51 mg (Entresto) 1 tab PO BID 90 days semaglutide (weight loss) (Wegovy) 0.25 mg (0.5 mL) subcut QWEEK sertraline 25 mg PO DAILY 90 days HPI HPI [facility] dc/ elevated heart rate/chest pain: Details: Chaz is a 49-year-old male with past medical history of hypertension, hyperlipidemia, CAD, anterior wall [place] 12/2017 with proximal LAD stent placed, ischemic cardiomyopathy status post ICD, SVT who was recently seen in the emergency room for chest discomfort. He ruled out for ACS. On remote monitoring of his device he has had episodes of rapid heartbeat consistent with sinus tachycardia versus SVT. His metoprolol dose was increased. He now presents for follow-up. Today he reports that he has been feeling generally well since his ER evaluation. He says the chest discomfort was a pressure like somebody was sitting on him and reminded him of his prior [place]. he said it was not quite as bad as the [place] but similar. He continues to have some chronic some shortness of breath with activity which is unchanged. He has busy at work most of his time and has been working over 40 hours most weeks. He will feel brief heart palpitations, no dizziness, presyncope, syncope, falls. No PND, orthopnea or edema. No ICD shocks. Taking meds as directed but does still miss his evening meds at times. Working full-time at car [employer]. [facility] Medical History Anterior wall myocardial infarction Nocturnal hypoxemia EVETTE (obstructive sleep apnea) Obesity (BMI 30-39.9) ICD (implantable cardioverter-defibrillator) in place HTN (hypertension) CAD (coronary artery disease) Tobacco abuse Ischemic cardiomyopathy NSVT (nonsustained ventricular tachycardia) Surgical History Hx of colonoscopy History of esophagogastroduodenoscopy (EGD) H/O heart artery stent H/O hernia repair H/O knee surgery Family History Other Mental health disorder Social History Household Members: None Housing: House Do you presently have visiting nurse or other home services: No Unable to assess alcohol history related to: Unknown Alcohol intake: current Alcohol intake frequency: holidays/special occasions only Patient Tobacco Use Status: Current everyday Tobacco user Tobacco use type: Cigarette Cigarettes Per Day: 10 Years Smoked: 30 e-Cigarette/Vaping Use: Never Used Second Hand Smoke Exposure: No Advance Directives Date on File: 09/14/20 service: No Current occupational status: employed Current occupation: [employer] - Right Handed Cognitive needs: No Hearing needs: No Vision needs: No Review of Systems Const All systems reviewed & are unremarkable except as noted in HPI and below Denies daytime sleepiness, Denies difficulty sleeping, Denies snoring, Denies stops breathing during sleep and Denies weakness ENT Denies dizziness Card Reports chest pain (one episode), Denies rapid heart rate, Denies irregular heart rhythm, Denies claudication, Denies leg edema, Reports lightheadedness, Denies palpitations, Reports dyspnea, Reports dyspnea on exertion, Denies orthopnea, Denies paroxysmal nocturnal dyspnea and Denies slow heart rate Resp Denies cough, Reports dyspnea, Reports dyspnea on exertion and Denies snoring GI Reports no additional complaints, Denies hematochezia, Denies change in stool character and Denies dyspepsia Musc Denies abnormal gait, Denies muscle weakness and Denies numbness Neuro Denies abnormal gait, Denies dizziness, Denies numbness and Denies weakness Endo Denies palpitations Physical Exam Vital Signs: Last Vital Signs Pulse 62 01/14/25 08:58 BP 128/84 01/14/25 08:58 BMI result Body Mass Index 34.6 Const General: cooperative, healthy appearing, comfortable and no acute distress Orientation/consciousness: patient oriented x3 Neck Neck: Yes normal visual inspection and Yes no JVD Resp Effort & Inspection: normal respiratory effort Auscultation: clear to auscultation bilaterally, no rales, no rhonchi and no wheezes Cardio Rate: regular rate Rhythm: regular rhythm Heart sounds: S1 normal heart sound present, S2 normal heart sound present, no gallops, no murmurs and no rubs Neuro General: patient oriented x3 Extrem General: Yes normal to inspection, No no pedal edema and No calf tenderness Psych Appearance: grossly normal Mental Status: mental status grossly normal Speech and movement: Normal speech and movement present Assessment & Plan Assessment & Plan (1) Anterior wall myocardial infarction: Comment: 12/2017 STEMI, ANTONIETA to proximal LAD Code(s): I21.09 - ST elevation (STEMI) myocardial infarction involving other coronary artery of anterior wall Category: Medical Plan: History of anterior wall [place] 12/2017, with ANTONIETA to the LAD at that time, other vessels normal. He has residual ischemic cardiomyopathy. He has a single lead ICD in place. Cardiac catheterization 07/09/2020 showed patent stent proximal LAD. Last nuclear stress test was done on 12/03/2021 showing a large anterior wall [place] with minimal cass-infarct ischemia. Last echocardiogram was 09/24/2024 shows EF 25-30%, mid anterior septal segment akinetic, apex segment aneurysmal. He had a episode of chest discomfort similar to prior [place] with ER evaluation 12/28/2024 and ruled out for ACS. Reviewed with Dr. Frederick. Will order an exercise nuclear stress test on him to evaluate for ischemia. Will continue on aspirin indefinitely. Continue atorvastatin with ideal LDL goal less than 70. Labs done 01/14/25 showed LDL 64. Continue metoprolol and Entresto for neurohormonal modulation. The importance of strict med compliance reviewed with him. Signs and symptoms of angina reviewed. Emergency care if ever needed for concerning symptoms. Cardiology follow-up 6-8 week months, sooner if needed. (2) Ischemic cardiomyopathy: Code(s): I25.5 - Ischemic cardiomyopathy Category: Medical Plan: Last echo with EF 25-30 %. Has ICD for primary prevention. Euvolemic on examination today. Ongoing medical management with Entresto, metoprolol, Jardiance for neurohormonal modulation. Signs and symptoms of heart failure reviewed (3) ICD (implantable cardioverter-defibrillator) in place: Comment: [employer] single-chamber ICD for primary prevention, implanted 09/18/2020 Code(s): Z95.810 - Presence of automatic (implantable) cardiac defibrillator Category: Medical Plan: Single-chamber ICD in place. Last Office interrogation showed device is functioning normally. Episodes of tachycardia seen, V rates in the 150s to 160. This could be sinus tach versus SVT. He was seen by electrophysiology 05/24/2023 and plan to continue medical management with metoprolol. Will have him continue metoprolol tartrate 150 mg b.i.d. (It had been increased to 200 mg bid by our other CIRCULAR CLERK and I will be returning dose to 150mg bid). For ICD, He has remote monitoring in use. Next office interrogation next visit (4) HTN (hypertension): Code(s): I10 - Essential (primary) hypertension Category: Medical Plan: Blood pressure goal less than 130/80, well controlled at this time. No med changes made. (5) SVT (supraventricular tachycardia): Code(s): I47.1 - Supraventricular tachycardia Category: Medical Plan: As above. Brief episodes of tachycardia seen on remote monitoring and device checks. He has SVT/ST, brief episodes with reports of palpitations, longest recent was 5 minutes. He can feel rapid beats at times. Continue metoprolol. Will be adding Ivabradine 2.5 mg bid to help with heart rate control. (6) Hospital discharge follow-up: Code(s): Z09 - Encounter for follow-up examination after completed treatment for conditions other than malignant neoplasm Category: Medical Plan: ED notes reviewed (7) Chest pain: Code(s): R07.9 - Chest pain, unspecified Category: Medical Qualifiers: Chest pain type: unspecified Qualified Code(s): R07.9 - Chest pain, unspecified Plan: as above Plan Time spent on chart review, documentation, interview and assessment Orders: Orders CA stress test Today I21.09 - ST elevation (STEMI) myocardial infarction involving other coronary artery of anterior wall, I25.5 - Ischemic cardiomyopathy, R07.9 - Chest pain, unspecified NM cardiolite stress test Today I21.09 - ST elevation (STEMI) myocardial infarction involving other coronary artery of anterior wall, I25.5 - Ischemic cardiomyopathy, R07.9 - Chest pain, unspecified Medications: Changed From metoprolol succinate ER changing back to succinate - Take 2 tablets BID 200 mg PO BID To metoprolol succinate ER changing to 150mg bid 150 mg PO BID Coding Level of Care Code Est Pt Level 4 (95520) Complex EM visit Add On G2211 Diagnoses Anterior wall myocardial infarction I21.09 Ischemic cardiomyopathy I25.5 ICD (implantable cardioverter-defibrillator) in place Z95.810 HTN (hypertension) I10 SVT (supraventricular tachycardia) I47.1 Hospital discharge follow-up Z09 Chest pain, unspecified type R07.9 Chest pain type: unspecified Time Spent (min) 32
--- OUTSIDE RECORDS SUMMARY | 2025-01-14 10:10 | XMS_ITS | Clinical Summary ---
Author Organization [facility] Address [address] [place] [id number] Phone Care Team Providers Care Ammunition Assembly Laborer Name Role Phone Juan Cadet NP Primary [...] Not on file [facility] Care Teams Ammunition Assembly Laborer Relationship Specialty Start Date End Date Juan Cadet NP [facility] [address] Bullock, MARY ELLEN [id number] PCP - General Nurse Practitioner 04/14/23 Additional Source Comments The information contained in this document represents components of the legal health record. It is not the complete legal health record.[facility]
== END 2025-01-14 09:28 | disposition home or self-care (01) ==
LOC: HO.HCS 08:56
PROVIDERS: PCP Nurse Practitioner Family; Visit Provider Nurse Practitioner Family
DX: I21.09 ST elevation (STEMI) myocardial infarction involving other coronary artery of anterior wall (principal); I25.5 Ischemic cardiomyopathy; Z95.810 Presence of automatic (implantable) cardiac defibrillator; I10 Essential (primary) hypertension; I47.10 Supraventricular tachycardia, unspecified; Z09 Encounter for follow-up examination after completed treatment for conditions other than malignant neoplasm; R07.9 Chest pain, unspecified
CPT/HCPCS: 99214; G2211

== ENCOUNTER 2025-01-14 08:55 | Outpatient (REF) | payer OTHER, SELFPAY ==
[2025-01-14 12:55] LABS: Anion Gap 14 (12-20)
[2025-01-14 13:00] LABS: Alanine Aminotransferase 117 U/L (0-40); Albumin Level 4.6 g/dL (3.5-5.0); Alkaline Phosphatase 69 U/L (39-117); Aspartate Amino Transferase 90 U/L (5-37); Blood Urea Nitrogen 8 mg/dL (9-16); Calcium 9.2 mg/dL (8.4-10.2); Carbon Dioxide 25 mmol/L (22-29); Chloride 108 mmol/L (96-108); Cholesterol 163 mg/dL (<200); Estimated Glomerular Filt Rate > 60; HDL Cholesterol 53 mg/dL (>40); Potassium 3.5 mmol/L (3.3-5.1); Sodium 143 mmol/L (135-145); Total Protein 7.4 g/dL (6.5-8.0); Triglycerides 232 mg/dL (<150)
== END 2025-01-14 08:56 | disposition home or self-care (01) ==
LOC: HO.LAB 08:55
PROVIDERS: Absent Provider Nurse Practitioner Family; PCP Nurse Practitioner Family; Visit Provider Nurse Practitioner Family
DX: I21.09 ST elevation (STEMI) myocardial infarction involving other coronary artery of anterior wall (principal); I25.5 Ischemic cardiomyopathy; Z95.810 Presence of automatic (implantable) cardiac defibrillator; I10 Essential (primary) hypertension; I47.10 Supraventricular tachycardia, unspecified; Z09 Encounter for follow-up examination after completed treatment for conditions other than malignant neoplasm; Z79.899 Other long term (current) drug therapy; F17.210 Nicotine dependence, cigarettes, uncomplicated; I25.2 Old myocardial infarction
CPT/HCPCS: 36415; 80053; 80061; 81001; 84443; 85025

== ENCOUNTER 2025-02-28 11:27 | Outpatient (REF) | payer OTHER, SELFPAY ==
--- NOTE | ~2025-02-28 | US_ITS ---
CLINICAL HISTORY: R10.9 - Unspecified abdominal pain US abdomen complete Comparison: 07/29/2022 Findings: Gallbladder unremarkable, no stone formation or wall thickening. Common duct measures 7.6 mm. No sonographic Dixon sign. Fatty infiltration liver without focal abnormality. Right lobe measures 17.8 cm in length. Main portal vein patent with normal direction of flow. Pancreas is unremarkable. Aorta and IVC patent and normal in caliber. The right kidney is normal, 12.6 cm in length. No focal abnormality or hydronephrosis. The left kidney is normal, 11.7 cm in length. No focal abnormality or hydronephrosis. The spleen is normal, 10.8 cm in length. No focal abnormality. Impression: Hepatomegaly with fatty infiltration of the liver Common bile duct dilation without other abnormality This document has been electronically signed by: Amor Brandon MD on 02/28/2025 20:51:59
--- OUTSIDE RECORDS SUMMARY | 2025-02-28 13:49 | XMS_ITS | Clinical Summary ---
Author Organization [facility] Address [address] [facility] [address] [place] [address] Phone Care Team Providers Care Kiln Operator Name Role Phone Juan Cadet NP Primary [...] 2021 INFLUENZA VACCINE (#1) 2024 COVID-19 VACCINE (2024-2 6 season) 2024 HEPATITIS A VACCINES Aged Out [...] Not on file Insurance O O O [facility] Care Teams Kiln Operator Relationship Specialty Start Date End Date Juan Cadet NP [facility] [address] Bullock, MARY ELLEN [address] PCP - General Nurse Practitioner 04/14/23 Additional Source Comments The information contained in this document represents components of the legal health record. It is not the complete legal health record.[facility]
--- OUTSIDE RECORDS SUMMARY | 2025-02-28 13:49 | XMS_ITS | Data Portability ---
Author Organization [facility], [address] Address [address] [place] [address] Assessment No assessment recorded. Plan of Treatment Reminders Order Date Submit Date Provider Last Modified By Organization Details Last Modified Time Details Appointments None recorded. Lab SARS CoV 2 (COVID-19) Ag, QL, IA, upper respiratory specimen 2023 [email or web address] 21009_[facility], [address] [place] [address], [id number], 11:44:47 Referral None recorded. Procedures None recorded. Surgeries None recorded. Imaging None recorded. Medication Orders benzonatate 200 mg capsule 2023 024 [email or web address] [facility] #[id number], [address] [place], [address], 11:44:45 fluticasone propionate 50 mcg/actuati on nasal spray,suspe nsion 2023 024 [email or web address] [facility] #[id number], [address] [place], [address], 20:45:02 albuterol sulfate HFA 90 mcg/actuati on aerosol inhaler 2023 024 [email or web address] [facility] #[id number], [address] [place], [address], 11:44:45 Patient TargetsNo targets recorded. Patient Instructions Encounter Date Encounter Id Patient Instructions Last Modified By Organization Details Last Modified Time 02/07/2024 [id number] dizziness: care instructions [email or web address] Not available 02/07/2024 11:44:45 Reason for Referral None Reported. Results Created Date Observation Date Name Description Value Unit Range Abnormal Flag Note LastModifiedBy Organization Detail LastModifiedTime 02/07/2002/07/2024 SARS CoV 2 (COVI D-19) Ag, QL, IA, upper respi rator y speci men Unknown Analyte negati ve Not Available _[address], [address], 02/07/2024 11:24:53 Result Notes None recorded. Problems Name Problem SNOMED Code Status Onset Date Resolution Date Notes Provider Name and Address Organization Details Recorded Time Anxiety 31828089 Active KIEL Longoria - [facility] 02/07/2024 [...] Heart rate Respiratory rate Body temperature Systolic And Diastolic Provider Name and Address Organization Details Last Updated DateTime 172.72 cm 34.7 kg/m2 363069. 06 g 98 % 98 % 0 87 /min 18 /min 98.8 [degF] 146/85 mm[Hg] Tami Mann PA - [facility] 11:26:04 Social History Question Answer Notes LastModified by Organizat ion Details LastModified Time Tobacco Smoking Status Current Every Day Smoker Tami Reesjose maria jon PA - [facility] 02/07/2024 11:24:20 Have [...] Diagnosis SNOMED-CT Code Diagnosis ICD10 Code Diagnosis IMO Codes Diagnosis Note [id number] [facility] [address] [address] 03/11/2020 08:55:03 03/11/2020 12:15:46 [id number] [facility] [address] [place] [address] 07/04/2019 10:50:44 07/04/2019 12:07:12 [id number] [facility] [address] [facility] [place] [address] 06/17/2021 14:04:23 06/17/2021 14:54:33 [id number] KIEL Martin 21009[facility] [address] [place] [address] 02/07/2024 11:17:40 02/07/2024 11:36:21 Viral upper respiratory tract infection 108988898 J06.9 You were seen today for body [...] readily available, use an alcohol-ba sed hand automotive parts manager with at least 60% alcohol. Always wash [...] symptoms or concerns. Thank you for using [facility] today, please feel free to contact our office if you have any questions or concerns. Health Concerns Section Related Observation LastModified by Organization Detsim ls LastModified Time None Recorded Concern Status LastModified by Organization Details LastModified Time None Recorded Advance Directives Directive None Recorded Payers Insurance Date Sequence Insurance Name Policy Number Policy Patton Covered Member ID Patton Member ID Guarantor Name 02/07/2024 1 [facility] [id number] Chaz Hartmann [id number] Chaz Hartmann 02/07/2024 1 [facility] (HMO) [id number] Chaz Hartmann [id number] Chaz Hartmann 02/07/2024 [employer]az Hartmann Notes Date Note Type Note Provider Name and Address Organization Details Recorded Time 02/07/2024 text/html 48 y/o male here with cough, congestion, some SOB, fatigue and dizziness for the past week. taking OTC cold meds with some improvement KIEL Martin [address] [place], [address], PA - [facility] 02/07/2024 11:50:30
== END 2025-02-28 11:28 | disposition home or self-care (01) ==
LOC: HO.HMGCX 11:27
PROVIDERS: PCP Nurse Practitioner Family; Visit Provider Nurse Practitioner Family
DX: R10.9 Unspecified abdominal pain (principal)
CPT/HCPCS: 76700

== ENCOUNTER → 2025-02-28 11:28 | Outpatient (BNV) | payer OTHER, SELFPAY | PROVIDERS: PCP Nurse Practitioner Family; Visit Provider Radiology Diagnostic Radiology | DX: R16.0 Hepatomegaly, not elsewhere classified (principal); K83.8 Other specified diseases of biliary tract | CPT/HCPCS: 76700 ==

== ENCOUNTER → 2025-03-04 08:32 | Outpatient (REF) | payer OTHER, SELFPAY ==
--- NOTE | ~2025-03-04 | NM_ITS ---
EXERCISE MYOCARDIAL PERFUSION STUDY INDICATION: Chest pain with prior coronary artery disease to evaluate for myocardial ischemia TECHNIQUE: The patient was brought in for an exercise perfusion study on 03/04/2025. Patient performed exercise as per Derik protocol and was injected 30 mCi of sestamibi once target heart rate was achieved. Images were obtained using the SPECT gamma camera interlaced with the gating device. Images were obtained in supine position. Resting perfusion study was performed on 03/07/2025. Patient was administered 30 mCi of sestamibi intravenously at rest. Images were then obtained in supine position. Images were processed with the software and compared side to side in short axis, horizontal long axis and vertical long axis views. Images obtained without without CT attenuation. Total DLP 103 mGy-cm. FINDINGS: Raw images were reviewed The stress perfusion study showed nonattenuated images show large area of absent uptake of the distal anterior, apical as well as inferoapical wall as well as severely reduced uptake in the septum with moderately reduced uptake in the inferior wall of the LV myocardium. Attenuated corrected images show large area of absent uptake in the mid anterior, anteroapical, apical and inferoapical wall of the LV myocardium as well as severely reduced uptake in the septum and inferoseptal wall of the LV myocardium. There is mildly reduced uptake in the inferior wall of the LV myocardium as well as basal anterior wall of the LV myocardium.. The gated study shows severely reduced LV systolic function with calculated LVEF of 32%. LV cavity is severely dilated in size. The gated study shows absent wall thickening and contraction of LAD territory segments. Resting study shows nonattenuated images show no change in perfusion pattern. Attenuated corrected images show mildly improved uptake in the basal anterior as well as inferior wall with no improvement uptake in the LAD territory.. Gating at rest reveals anterior wall motion with abnormality ejection fraction at 30%. The findings are consistent with large area of transmural infarct in the LAD territory with cass-infarct ischemia in the basal anterior wall as well as mild intensity ischemia in the inferior wall. NM/NM cardiolite stress test IMPRESSION: 1. Myocardial perfusion imaging study shows large area of transmural infarct in the LAD territory with some cass-infarct ischemia with mild intensity inferior wall ischemia in RCA territory. 2. Gated LVEF is 32%. 3. Transient ischemic dilatation not present but LV cavity is dilated. EKG revealed negative for ischemia. Electronically signed by: Asad Parker MD 03/08/2025 12:51 PM ARIADNA
--- NOTE | 2025-03-04 08:35 | CA_ITS ---
Acquisition Time: 2025-03-04 08:20:34 Total Exercise Time: 00:06:16 Test Indications: CAD,SVT/ST Medications: SEE H&P Protocol: ESHA Max HR: 153 BPM 88% of Pred: 172 BPM Max BP: 170/90 mmHG Max Work Load: 7.0 METS Exercise stress test with exercise 6 mins 16 secs of Esha Protocol, achieving 90% MPHR, with reports of 3/10 left sided chest tightness and SOB, with isolated PVCs, with normotensive response to exercise. Without any EKG changes meeting criteria for ischemia. In recovery, chest tightness resolved and breathing improved to baseline. Nuclear images pending. Test reviewed with Dr. Parker. Referred By: Tarsha Meade Electronically Signed By: Chele Camacho
--- OUTSIDE RECORDS SUMMARY | 2025-03-04 08:44 | XMS_ITS | Clinical Summary ---
Author Organization [facility] Address [address] [facility] [address] [place] [address] Phone Care Team Providers Care Survey Manager Name Role Phone Juan Cadet NP Primary [...] Not on file Insurance O O O [facility] Care Teams Survey Manager Relationship Specialty Start Date End Date Juan Cadet NP [facility] [address] Bullock, MARY ELLEN [address] PCP - General Nurse Practitioner 04/14/23 Additional Source Comments The information contained in this document represents components of the legal health record. It is not the complete legal health record.[facility]
--- OUTSIDE RECORDS SUMMARY | 2025-03-04 08:44 | XMS_ITS | Data Portability ---
Author Organization [facility], [address] Address [address] [place] [address] Assessment No assessment recorded. Plan of Treatment Reminders Order Date Submit Date Provider Last Modified By Organization Details Last Modified Time Details Appointments None recorded. Lab SARS CoV 2 (COVID-19) Ag, QL, IA, upper respiratory specimen 2023 [email or web address] 21009_[facility], [address] [place] [address], [phone], 11:44:47 Referral None recorded. Procedures None recorded. Surgeries None recorded. Imaging None recorded. Medication Orders benzonatate 200 mg capsule 2023 024 [email or web address] [facility] #[id number], [address] [place], [address], 11:44:45 fluticasone propionate 50 mcg/actuati on nasal spray,suspe nsion 2023 024 [email or web address] [facility] #[id number], [address] [place], [address], 20:45:02 albuterol sulfate HFA 90 mcg/actuati on aerosol inhaler 2023 024 [email or web address] [facility][id number], [address] [place], [address], 11:44:45 Patient TargetsNo targets recorded. Patient Instructions Encounter Date Encounter Id Patient Instructions Last Modified By Organization Details Last Modified Time 02/07/2024 [id number] dizziness: care instructions [email or web address] Not available 02/07/2024 11:44:45 Reason for Referral None Reported. Results Created Date Observation Date Name Description Value Unit Range Abnormal Flag Note LastModifiedBy Organization Detail LastModifiedTime 02/07/2002/07/2024 SARS CoV 2 (COVI D-19) Ag, QL, IA, upper respi rator y speci men Unknown Analyte negati ve Not Available [facility] [address], [address], 02/07/2024 11:24:53 Result Notes None recorded. Problems Name Problem SNOMED Code Status Onset Date Resolution Date Notes Provider Name and Address Organization Details Recorded Time Anxiety 61068500 Active KIEL Longoria - [facility] 02/07/2024 [...] Last Updated DateTime 172.72 cm 34.7 kg/m2 846882. 06 g 98 % 98 % 0 [...] ICD10 Code Diagnosis IMO Codes Diagnosis Note [id number] [facility] [address] [address] 03/11/2020 08:55:03 03/11/2020 12:15:46 [id number] [facility] [address] [place] [address] 07/04/2019 10:50:44 07/04/2019 12:07:12 [id number] [facility] [address] [facility] [place] [address] 06/17/2021 14:04:23 06/17/2021 14:54:33 [id number] [facility]IEL Martin [address] [address] [place] [address] 02/07/2024 11:17:40 02/07/2024 11:36:21 Viral upper respiratory tract infection 905831228 J06.9 You were seen today for body [...] readily available, use an alcohol-ba sed hand armament mechanic with at least 60% alcohol. Always wash [...] Member ID Guarantor Name 02/07/2024 1 [facility] [id number] Chaz Hartmann [id number] Chaz Hartmann 02/07/2024 1 [facility] (HMO) [id number] Chaz Hartmann [id number] Chaz Hartmann 02/07/2024 [employer] Chaz Hartmann Notes Date Note Type Note Provider Name and Address Organization Details Recorded Time 02/07/2024 text/html 48 y/o male here with cough, congestion, some SOB, fatigue and dizziness for the past week. taking OTC cold meds with some improvement KIEL Martin [address] [place], [address], PA - [facility] 02/07/2024 11:50:30
== END ==
LOC: HO.CARD 08:32
PROVIDERS: PCP Nurse Practitioner Family; Visit Provider Nurse Practitioner Family
DX: I25.5 Ischemic cardiomyopathy (principal); I21.09 ST elevation (STEMI) myocardial infarction involving other coronary artery of anterior wall; R07.9 Chest pain, unspecified
CPT/HCPCS: 78452; 93017; A9500

== ENCOUNTER → 2025-03-04 08:35 | Outpatient (BNV) | payer OTHER, SELFPAY | PROVIDERS: PCP Nurse Practitioner Family | DX: I49.3 Ventricular premature depolarization (principal); R07.89 Other chest pain; R06.02 Shortness of breath | CPT/HCPCS: 78452; 93016; 93018 ==

== ENCOUNTER 2025-03-17 13:29 | Outpatient (AMB) | payer OTHER, SELFPAY ==
[2025-03-17 13:33] VITALS: BP 120/78; PULSE 72; BMI 36.3
--- NOTE | 2025-03-17 13:33 | A.OFFVIS_ITS ---
Vital Signs 03/17/25 13:33 Height 5 ft 7 in Weight 231 lb 7.766 oz BMI 36.3 BP 120/78 Blood Pressure Location Lt brachial Position Sitting Pulse 72 Intake Visit Reasons: f/u per pcp Intake Note: Follow-up per pcp right upper quadrant pain Shift Production Associate Required: No Allergies No Known Allergies Allergy (Verified 01/02/25 11:44) HPI Comments Details: He has background history of coronary artery disease with previous anterior MO and ischemic cardiomyopathy with EF 30-35% status post ICD placement who is coming in for abdominal pain. Patient reports that around 2 months ago he started noticing postprandial pain that would last a few hours starting in epigastrium and eventually settling in RUQ. No nausea or vomiting. No change in appetite or weight. Pt has actually been gaining weight. Gallbladder in situ. Has been taking PPI for 2 weeks and does note some improvement in sx. Smokes 1/2 PPD, rare etOH use. No NSAID use. Last cocaine use for 6 years ago, before his ACS. Pt has previously been told he has chronic hepatitis B but that he doesnt need any treatment. Last EGD/colonoscopy was 2017 but pt does not recall where. EGD 09/29/21 (Dr Menjivar) Larynx:normal Esophagus: GE junction at 40? cm, diaphragm hiatus at 40 cm, no varices or esophagitis, bx taken from distal esophagus Stomach: Patchy gastric erythema. Biopsies were obtained. Grade 2 flap valve on retroflexed examination of the cardia. Good peristalsis noted. Duodenum: Normal bulb and descending duodenum, bx taken Path: A.? Duodenum, biopsy:? Small intestinal mucosa within normal limits. B.? Stomach, biopsy: - Antral-type and oxyntic mucosa with moderate chronic, focally active, inflammation. - Rare forms suspicious for H pylori identified. C.? Esophagus, distal, biopsy:? Squamous mucosa within normal limits; no inflammation seen. 10/04/22: EGD and path reveiwed with the pt. He was counseled that given how ubiquitous H pylori is, unlikely to be causing his sx of abdominal discomfort and this more likely due to intermittent NSAID use and smoking. However, he prefers treatment for H pylori which will be prescribed today. Otherwise, sx well controlled on once daily PPI, no esophagitis noted on EGD. 12/22/2023: Patient being seen as tele visit follow-up after a year. Reports had not taken the quadruple therapy for H pylori yet. Plans to start it in the cold or season, as would like to avoid going in the sun while he has taking the tetracycline. Otherwise, no acute issues. PCP has also requested colonoscopy. Patient had colonoscopy with Dr. Baez office in 2017. Reports repeat was recommended in 5 years due to his unknown family history, parents in their 50s. 03/17/25: here for follow up. Was lost to follow up last year. Did not get around to quadruple HP therapy. Did not call to schedule colo. Now has abnormal stress test and scheduled for cardiac cath next month. In terms of GI sx, reports intermittent RUQ pain. US Abd ordered by PCP shows fatty liver. As prev reviewed pt with significant etOH hx along wiht metabolic risk factors including central obesity BMI 36, HLD. PFSH Medical History Anterior wall myocardial infarction Nocturnal hypoxemia EVETTE (obstructive sleep apnea) Obesity (BMI 30-39.9) ICD (implantable cardioverter-defibrillator) in place HTN (hypertension) CAD (coronary artery disease) Tobacco abuse Ischemic cardiomyopathy NSVT (nonsustained ventricular tachycardia) Surgical History Hx of colonoscopy History of esophagogastroduodenoscopy (EGD) H/O heart artery stent H/O hernia repair H/O knee surgery Family History Other Mental health disorder Social History Household Members: None Housing: House Do you presently have visiting nurse or other home services: No Alcohol intake: current Alcohol intake frequency: holidays/special occasions only Patient Tobacco Use Status: Current everyday Tobacco user Tobacco use type: Cigarette Cigarettes Per Day: 10 Years Smoked: 30 e-Cigarette/Vaping Use: Never Used Second Hand Smoke Exposure: No Advance Directives Date on File: 09/14/20 service: No Current occupational status: employed Current occupation: [employer] - Right Handed Cognitive needs: No Hearing needs: No Vision needs: No Review of Systems Const All systems reviewed & are unremarkable except as noted in HPI and below Physical Exam Exam Exam: No apparent distress Nonicteric Abdomen soft, nondistended Alert and oriented x3, normal gait Vital Signs: Last Vital Signs Pulse 72 03/17/25 13:33 BP 120/78 03/17/25 13:33 BMI result Body Mass Index 36.3 Assessment & Plan Assessment & Plan (1) Elevated LFTs: Code(s): R79.89 - Other specified abnormal findings of blood chemistry Category: Medical (2) Ischemic cardiomyopathy: Code(s): I25.5 - Ischemic cardiomyopathy Category: Medical (3) Abnormal nuclear stress test: Code(s): R94.39 - Abnormal result of other cardiovascular function study Category: Medical (4) Dyslipidemia: Code(s): E78.5 - Hyperlipidemia, unspecified Category: Medical (5) Obesity (BMI 30-39.9): Comment: HE IS MADE AWARE OF HIS BEING OVERWEIGHT, ADVISE THAT HE SHOULD LIMIT HIS CALORIES INTAKE AND TRIED TO DO REGULAR EXERCISE, GOAL WILL BE TO BRING BMI BELOW 30 Code(s): E66.9 - Obesity, unspecified Category: Medical (6) MetALD: Code(s): K76.0 - Fatty (change of) liver, not elsewhere classified; F10.90 - Alcohol use, unspecified, uncomplicated Category: Medical (7) Chronic hepatitis B: Code(s): B18.1 - Chronic viral hepatitis B without delta-agent Category: Medical (8) Screening for colon cancer: Code(s): Z12.11 - Encounter for screening for malignant neoplasm of colon Category: Medical Plan 1. Elevated LFTs Likely 2/2 metALD however also has chronic HBV, will check updated VL as well as E Ag and Ab. HIV and HDV coinfection negative. Plan: - Check CBC and CMP to estimate Fib 4 - Labs as below to r/o other causes of chronic liver disease 2. CRC screening Pt also overdue for CRC screening however this will be deferred for now until PCI. Follow up 2 months Orders: Orders Complete Blood Count no Diff Today B18.1 - Chronic viral hepatitis B without delta-agent, F10.90 - Alcohol use, unspecified, uncomplicated, K76.0 - Fatty (change of) liver, not elsewhere classified Comprehensive Met. Panel Today B18.1 - Chronic viral hepatitis B without delta- agent, F10.90 - Alcohol use, unspecified, uncomplicated, K76.0 - Fatty (change of) liver, not elsewhere classified Alpha 1 Anti-trypsin Today B18.1 - Chronic viral hepatitis B without delta- agent, F10.90 - Alcohol use, unspecified, uncomplicated, K76.0 - Fatty (change of) liver, not elsewhere classified Ceruloplasmin Today B18.1 - Chronic viral hepatitis B without delta-agent, F10.90 - Alcohol use, unspecified, uncomplicated, K76.0 - Fatty (change of) liver, not elsewhere classified Hepatitis B Viral DNA Qn Today B18.1 - Chronic viral hepatitis B without delta- agent, F10.90 - Alcohol use, unspecified, uncomplicated, K76.0 - Fatty (change of) liver, not elsewhere classified Hepatitis B Surface Antigen Today B18.1 - Chronic viral hepatitis B without delta-agent, F10.90 - Alcohol use, unspecified, uncomplicated, K76.0 - Fatty (change of) liver, not elsewhere classified Hepatitis B Core Antibody Today B18.1 - Chronic viral hepatitis B without delta-agent, F10.90 - Alcohol use, unspecified, uncomplicated, K76.0 - Fatty (change of) liver, not elsewhere classified Hepatitis BE Antigen Today B18.1 - Chronic viral hepatitis B without delta- agent, F10.90 - Alcohol use, unspecified, uncomplicated, K76.0 - Fatty (change of) liver, not elsewhere classified HIV Ab/Ag Today B18.1 - Chronic viral hepatitis B without delta-agent, F10.90 - Alcohol use, unspecified, uncomplicated, K76.0 - Fatty (change of) liver, not elsewhere classified Smooth Muscle Antibody Today B18.1 - Chronic viral hepatitis B without delta- agent, F10.90 - Alcohol use, unspecified, uncomplicated, K76.0 - Fatty (change of) liver, not elsewhere classified Immunoglobulin A Today B18.1 - Chronic viral hepatitis B without delta-agent, F10.90 - Alcohol use, unspecified, uncomplicated, K76.0 - Fatty (change of) liver, not elsewhere classified Alpha Fetoprotein Today B18.1 - Chronic viral hepatitis B without delta-agent, F10.90 - Alcohol use, unspecified, uncomplicated, K76.0 - Fatty (change of) liver, not elsewhere classified Ferritin Today B18.1 - Chronic viral hepatitis B without delta-agent, F10.90 - Alcohol use, unspecified, uncomplicated, K76.0 - Fatty (change of) liver, not elsewhere classified Hemoglobin A1c Today B18.1 - Chronic viral hepatitis B without delta-agent, F10.90 - Alcohol use, unspecified, uncomplicated, K76.0 - Fatty (change of) liver, not elsewhere classified Hepatitis B Surface Antibody Today B18.1 - Chronic viral hepatitis B without delta-agent, F10.90 - Alcohol use, unspecified, uncomplicated, K76.0 - Fatty (change of) liver, not elsewhere classified Hepatitis BE Antibody Today B18.1 - Chronic viral hepatitis B without delta- agent, F10.90 - Alcohol use, unspecified, uncomplicated, K76.0 - Fatty (change of) liver, not elsewhere classified IRON PROFILE Today B18.1 - Chronic viral hepatitis B without delta-agent, F10.90 - Alcohol use, unspecified, uncomplicated, K76.0 - Fatty (change of) liver, not elsewhere classified Lipid Panel Today B18.1 - Chronic viral hepatitis B without delta-agent, F10.90 - Alcohol use, unspecified, uncomplicated, K76.0 - Fatty (change of) liver, not elsewhere classified Liver Kidney Microsomal Ab Today B18.1 - Chronic viral hepatitis B without delta-agent, F10.90 - Alcohol use, unspecified, uncomplicated, K76.0 - Fatty (change of) liver, not elsewhere classified Phosphatidylethanol, Blood Today B18.1 - Chronic viral hepatitis B without delta-agent, F10.90 - Alcohol use, unspecified, uncomplicated, K76.0 - Fatty (change of) liver, not elsewhere classified Prothrombin Time INR Today B18.1 - Chronic viral hepatitis B without delta- agent, F10.90 - Alcohol use, unspecified, uncomplicated, K76.0 - Fatty (change of) liver, not elsewhere classified Transglutaminase IgA Today B18.1 - Chronic viral hepatitis B without delta- agent, F10.90 - Alcohol use, unspecified, uncomplicated, K76.0 - Fatty (change of) liver, not elsewhere classified TSH reflex Free T4 Today B18.1 - Chronic viral hepatitis B without delta-agent, F10.90 - Alcohol use, unspecified, uncomplicated, K76.0 - Fatty (change of) liver, not elsewhere classified Vitamin B12 and Folate Today B18.1 - Chronic viral hepatitis B without delta- agent, F10.90 - Alcohol use, unspecified, uncomplicated, K76.0 - Fatty (change of) liver, not elsewhere classified Coding Level of Care Code Complex visit Add On G2211 Diagnoses Elevated LFTs R79.89 Ischemic cardiomyopathy I25.5 Abnormal nuclear stress test R94.39 Dyslipidemia E78.5 Obesity (BMI 30-39.9) E66.9 MetALD K76.0; F10.90 Chronic hepatitis B B18.1 Screening for colon cancer Z12.11
--- OUTSIDE RECORDS SUMMARY | 2025-03-17 18:10 | XMS_ITS | Clinical Summary ---
Author Organization [facility] Address [address] [place] [address] Phone Care Team Providers Care Battery Assembler Name Role Phone Juan Cadet NP Primary [...] Not on file Insurance O O O [facility] Care Teams Battery Assembler Relationship Specialty Start Date End Date Juan Cadet NP [facility] [address], [place] [id number] PCP - General Nurse Practitioner 04/14/23 Additional Source Comments The information contained in this document represents components of the legal health record. It is not the complete legal health record.[facility]
== END 2025-03-17 14:24 | disposition home or self-care (01) ==
LOC: HO.HGI 13:29
PROVIDERS: PCP Nurse Practitioner Family; Visit Provider Internal Medicine
DX: R74.01 Elevation of levels of liver transaminase levels (principal); I25.5 Ischemic cardiomyopathy; R94.39 Abnormal result of other cardiovascular function study; E78.5 Hyperlipidemia, unspecified; E66.9 Obesity, unspecified; K76.0 Fatty (change of) liver, not elsewhere classified; F10.90 Alcohol use, unspecified, uncomplicated; B18.1 Chronic viral hepatitis B without delta-agent
CPT/HCPCS: 99214; G2211

== ENCOUNTER 2025-03-22 07:33 | Outpatient (REF) | payer OTHER, SELFPAY ==
--- OUTSIDE RECORDS SUMMARY | 2025-03-22 07:35 | XMS_ITS | Data Portability ---
Author Organization [facility] Address [address] [place] [address] Assessment No assessment recorded. Plan of Treatment Reminders Order Date Submit Date Provider Last Modified By Organization Details Last Modified Time Details Appointments None recorded. Lab SARS CoV 2 (COVID-19) Ag, QL, IA, upper respiratory specimen 2023 [email or web address] [address], [address] [place] [address], [phone], 11:44:47 Referral None recorded. Procedures None recorded. Surgeries None recorded. Imaging None recorded. Medication Orders benzonatate 200 mg capsule 2023 024 [email or web address] [id number], [address] [place], [address], 11:44:45 fluticasone propionate 50 mcg/actuati on nasal spray,suspe nsion 2023 024 [email or web address] [id number], [address] [place], [address], 20:45:02 albuterol sulfate HFA 90 mcg/actuati on aerosol inhaler 2023 024 [email or web address] [id number], [address] [place], [address], 11:44:45 Patient TargetsNo targets recorded. Patient Instructions Encounter Date Encounter Id Patient Instructions Last Modified By Organization Details Last Modified Time 02/07/2024 [id number] dizziness: care instructions [email or web address] Not available 02/07/2024 11:44:45 Reason for Referral None Reported. Results Created Date Observation Date Name Description Value Unit Range Abnormal Flag Note LastModifiedBy Organization Detail LastModifiedTime 02/07/2002/07/2024 SARS CoV 2 (COVI D-19) Ag, QL, IA, upper respi rator y speci men Unknown Analyte negati ve Not Available [facility], [address], 02/07/2024 11:24:53 Result Notes None recorded. Problems Name Problem SNOMED Code Status Onset Date Resolution Date Notes Provider Name and Address Organization Details Recorded Time Anxiety 42902221 Active KIEL Longoria - [facility] 02/07/2024 [...] mass index (BMI) Body weight Oxygen saturation Pain severity - 0-10 verbal numeric rating [Score] - Reported Heart rate Respiratory rate Body temperature Systolic And Diastolic Provider Name and Address Organization Details Last Updated DateTime 172.72 cm 34.7 kg/m2 899592. 06 g 98 % 0 87 /min 18 /min 98.8 [degF] 146/85 mm[Hg] Tami Mann PA - [facility] 11:26:04 Social History Question Answer Notes LastModified by Organizat ion Details LastModified Time Tobacco Smoking Status Current Every Day Smoker Tami Mann danay, [place] - [facility] 02/07/2024 11:24:20 Have [...] ICD10 Code Diagnosis IMO Codes Diagnosis Note [id number] [facility] [address] [place] [phone] 03/11/2020 08:55:03 03/11/2020 12:15:46 [id number] [address] [address] [place] [address] 07/04/2019 10:50:44 07/04/2019 12:07:12 [id number] [address] [address] [place] [address] 06/17/2021 14:04:23 06/17/2021 14:54:33 [id number] KI[facility] Martin [address] [place] [address] 02/07/2024 11:17:40 02/07/2024 11:36:21 Viral upper respiratory tract infection 202153220 J06.9 You were seen today for body [...] readily available, use an alcohol-ba sed hand hospice clinical marketer with at least 60% alcohol. Always wash [...] symptoms or concerns. Thank you for using hike today, please feel free to contact our [...] Member ID Guarantor Name 02/07/2024 1 [facility] [id number] Chaz Hartmann [id number] Chaz Hartmann 02/07/2024 1 [facility] (O) [id number] Chaz Hartmann [id number] Chaz Hartmann 02/07/2024 [employer] Chaz Hartmann Notes Date Note Type Note Provider Name and Address Organization Details Recorded Time 02/07/2024 text/html 48 y/o male here with cough, congestion, some SOB, fatigue and dizziness for the past week. taking OTC cold meds with some improvement KIEL Martin [address] [place], [address], PA - [facility] 02/07/2024 11:50:30
--- OUTSIDE RECORDS SUMMARY | 2025-03-22 07:35 | XMS_ITS | Clinical Summary ---
Author Organization [facility] Address [address] [place] [address] Phone Care Team Providers Care Security Advisor Name Role Phone Juan Cadet NP Primary [...] Not on file [facility] Care Teams Security Advisor Relationship Specialty Start Date End Date uJan Cadet NP [facility] [address], [place] [address] PCP - General Nurse Practitioner 04/14/23 Additional Source Comments The information contained in this document represents components of the legal health record. It is not the complete legal health record.[facility]
[2025-03-22 11:15] LABS: MANUAL DIFF FLAG NO
[2025-03-22 11:21] LABS: Hematocrit 44.4 % (42.0-52.0); Hemoglobin 15.4 g/dl (14.0-18.0); Imm Gran Abs Auto 0.03 X10*3/uL (0.00-0.03); Imm Gran Pct Auto 0.4 % (0.0-0.4); Lymphocytes Absolute Auto 2.1 X10*3/uL (1.2-4.9); Mean Corpuscular HGB Conc 34.7 g/dl (31.0-36.0); Mean Corpuscular Hemoglobin 33.3 pg (27.0-33.0); Mean Corpuscular Volume 96.1 fL (80.0-98.0); NRBC Abs Auto 0.000 X10*3/uL (0.0-0.012); NRBC Pct Auto 0.0 /100WBC (0.0-0.2); Platelet Count 229 X10*3/uL (160-400); Red Blood Count 4.62 X10*6/uL (4.60-5.80); White Blood Count 8.3 X10*3/uL (4.8-10.8)
[2025-03-22 11:26] LABS: INTERNATIONAL NORM RATIO 0.9 (0.9-1.1); Prothrombin Time 11.4 SEC (11.2-13.5)
[2025-03-22 11:35] LABS: Anion Gap 13 (12-20); Blood Urea Nitrogen 11 mg/dL (9-16); Calcium 8.9 mg/dL (8.4-10.2); Carbon Dioxide 23 mmol/L (22-29); Chloride 111 mmol/L (96-108); Estimated Glomerular Filt Rate > 60; Potassium 3.4 mmol/L (3.3-5.1); Sodium 144 mmol/L (135-145)
== END 2025-03-22 07:34 | disposition home or self-care (01) ==
LOC: HO.HMGCLDS 07:33
PROVIDERS: PCP Nurse Practitioner Family; Visit Provider Nurse Practitioner Family
DX: R94.39 Abnormal result of other cardiovascular function study (principal)
CPT/HCPCS: 36415; 80048; 85025; 85610

== ENCOUNTER → 2025-03-27 23:59 | Outpatient (BNV) | payer OTHER, SELFPAY | PROVIDERS: PCP Nurse Practitioner Family; Visit Provider Internal Medicine Cardiovascular Disease | DX: I25.118 Atherosclerotic heart disease of native coronary artery with other forms of angina pectoris (principal) | CPT/HCPCS: 93458; 99152 ==

== ENCOUNTER → 2025-03-31 12:45 | Outpatient (BNV) | payer OTHER, SELFPAY | PROVIDERS: PCP Nurse Practitioner Family; Visit Provider Internal Medicine Cardiovascular Disease | DX: I47.10 Supraventricular tachycardia, unspecified (principal); I25.5 Ischemic cardiomyopathy; Z95.810 Presence of automatic (implantable) cardiac defibrillator | CPT/HCPCS: 93295 ==

== ENCOUNTER 2025-04-11 14:18 | Outpatient (AMB) | payer OTHER, SELFPAY ==
[2025-04-11 14:21] VITALS: BP 118/62; PULSE 76; BMI 36.3
--- NOTE | 2025-04-11 14:21 | A.OFFVIS_ITS ---
Vital Signs 04/11/25 14:21 Height 5 ft 7 in Weight 231 lb 7.766 oz BMI 36.3 BP 118/62 Blood Pressure Location Lt brachial Position Sitting Pulse 76 Pulse Source Pulse Oximeter Intake Visit Reasons: f/u after Cath Allergies No Known Allergies Allergy (Verified 03/31/25 12:59) Medication List - Last Reconciled 04/11/25 by Tarsha Meade NP-C aspirin (Adult Aspirin Regimen) 81 mg PO DAILY atorvastatin 80 mg PO BEDTIME blood pressure monitor As directed buspirone 30 mg PO BID 90 days empagliflozin (Jardiance) 10 mg PO DAILY methadone (Methadone Intensol) 19mg orally daily; metoprolol succinate ER 200 mg PO BID omega-3 acid ethyl esters 2 caps PO BID 90 days pantoprazole 20 mg PO BID 90 days sacubitril-valsartan 49-51 mg (Entresto) 1 tab PO BID 90 days HPI HPI f/u after Cath: Details: Chaz is a 49-year-old male with past medical history of hypertension, hyperlipidemia, CAD, anterior wall MA 12/2017 with proximal LAD stent placed, ischemic cardiomyopathy status post ICD, SVT who was recently seen in the emergency room for chest discomfort. He ruled out for ACS. On remote monitoring of his device he has had episodes of rapid heartbeat consistent with sinus tachycardia versus SVT. His metoprolol dose was increased. He now presents for follow-up. Today he reports that he has been feeling generally well since his ER evaluation. He says the chest discomfort was a pressure like somebody was sitting on him and reminded him of his prior MA. he said it was not quite as bad as the MA but similar. He continues to have some chronic some shortness of breath with activity which is unchanged. He has busy at work most of his time and has been working over 40 hours most weeks. He will feel brief heart palpitations, no dizziness, presyncope, syncope, falls. No PND, orthopnea or edema. No ICD shocks. Taking meds as directed but does still miss his evening meds at times. Working full-time at [employer] [facility] Medical History Anterior wall myocardial infarction Nocturnal hypoxemia EVETTE (obstructive sleep apnea) Obesity (BMI 30-39.9) ICD (implantable cardioverter-defibrillator) in place HTN (hypertension) CAD (coronary artery disease) Tobacco abuse Ischemic cardiomyopathy NSVT (nonsustained ventricular tachycardia) Surgical History Hx of colonoscopy History of esophagogastroduodenoscopy (EGD) H/O heart artery stent H/O hernia repair H/O knee surgery Family History Other Mental health disorder Social History Household Members: None Housing: House Do you presently have visiting nurse or other home services: No Alcohol intake: current Alcohol intake frequency: holidays/special occasions only Patient Tobacco Use Status: Current everyday Tobacco user Tobacco use type: Cigarette Cigarettes Per Day: 10 Years Smoked: 30 e-Cigarette/Vaping Use: Never Used Second Hand Smoke Exposure: No Advance Directives Date on File: 09/14/20 service: No Current occupational status: employed Current occupation: [employer] - Right Handed Cognitive needs: No Hearing needs: No Vision needs: No Review of Systems Const All systems reviewed & are unremarkable except as noted in HPI and below Denies weakness ENT Reports dizziness (after taking am meds) Card Denies chest pain, Denies chest pain with activity, Denies syncope, Denies rapid heart rate, Denies pedal edema, Denies edema, Denies leg edema, Denies lightheadedness, Denies palpitations, Denies dyspnea, Denies dyspnea on exertion and Denies orthopnea Resp Denies cough, Denies dyspnea and Denies dyspnea on exertion GI Denies hematochezia and Denies change in stool character Musc Details: right radial cath site well healed. Denies abnormal gait, Denies muscle cramps, Denies muscle weakness, Denies numbness, Denies radiating pain into limb and Denies tingling Neuro Denies abnormal gait, Reports dizziness (after taking am meds), Denies syncope, Denies numbness, Denies tingling and Denies weakness Endo Denies palpitations Physical Exam Vital Signs: Last Vital Signs Pulse 76 04/11/25 14:21 BP 118/62 04/11/25 14:21 BMI result Body Mass Index 36.3 Const General: cooperative, healthy appearing, comfortable and no acute distress Orientation/consciousness: patient oriented x3 Neck Neck: Yes normal visual inspection and Yes no JVD Resp Effort & Inspection: normal respiratory effort Auscultation: clear to auscultation bilaterally, no rales, no rhonchi and no wheezes Cardio Rate: regular rate Rhythm: regular rhythm Heart sounds: S1 normal heart sound present, S2 normal heart sound present, no gallops, no murmurs and no rubs Neuro General: patient oriented x3 Extrem Other: radial pulse easily palpable General: Yes normal to inspection, No no pedal edema and No calf tenderness Psych Appearance: grossly normal Mental Status: mental status grossly normal Speech and movement: Normal speech and movement present Assessment & Plan Assessment & Plan (1) Anterior wall myocardial infarction: Comment: 12/2017 STEMI, ANTONIETA to proximal LAD Code(s): I21.09 - ST elevation (STEMI) myocardial infarction involving other coronary artery of anterior wall Category: Medical Plan: History of anterior wall MA 12/2017, with ANTONIETA to the LAD at that time, other vessels normal. He has residual ischemic cardiomyopathy. He has a single lead ICD in place. Cardiac catheterization 07/09/2020 showed patent stent proximal LAD. Last nuclear stress test was done on 12/03/2021 showing a large anterior wall MA with minimal cass-infarct ischemia. Last echocardiogram was 09/24/2024 shows EF 25-30%, mid anterior septal segment akinetic, apex segment aneurysmal. On last visit he reported a episode of chest discomfort similar to prior MA with ER evaluation 12/28/2024 and ruled out for ACS. He then underwent repeat cardiac catheterization 03/27/2025 showing patent LAD stent, other vessels normal. Will start in cardiac rehab for reduced EF, stable angina. Continue aspirin indefinitely. Continue atorvastatin with ideal LDL goal less than 70. Labs done 01/14/25 showed LDL 64. Continue metoprolol and Entresto for neurohormonal modulation. Signs and symptoms of angina reviewed. Emergency care if ever needed for concerning symptoms. Cardiology follow-up 6 months, sooner if needed. (2) S/P cardiac cath: Comment: 03/27/2025 patent stent in the proximal LAD, normal left main, RCA and left circumflex. Code(s): Z98.890 - Other specified postprocedural states Category: Surgical Plan: Right radial catheterization site healing well (3) Ischemic cardiomyopathy: Code(s): I25.5 - Ischemic cardiomyopathy Category: Medical Plan: Last echo with EF 25-30 %. Has ICD for primary prevention. Euvolemic on examination today. Labs 03/22/2025 show potassium 3.4, creatinine 0.66. Ongoing medical management with Entresto, metoprolol, Jardiance for neurohormon al modulation. Signs and symptoms of heart failure reviewed (4) ICD (implantable cardioverter-defibrillator) in place: Comment: [employer] single-chamber ICD for primary prevention, implanted 09/18/2020 Code(s): Z95.810 - Presence of automatic (implantable) cardiac defibrillator Category: Medical Plan: Single-chamber ICD in place. Last Office interrogation showed device is functioning normally. He has had episodes of high V rates in the 150s to 160. This could be sinus tach versus SVT. He was seen by electrophysiology 05/24/2023 and plan to continue medical management with metoprolol. He currently states he is still taking metoprolol 200 mg b.i.d.. Will have him reduce it back to 150 mg b.i.d. which is atypical max dose. Continue ICD remote monitoring. Next office interrogation 6 months. (5) HTN (hypertension): Code(s): I10 - Essential (primary) hypertension Category: Medical Plan: Blood pressure goal less than 130/80, well controlled at this time. Metoprolol being reduced. (6) SVT (supraventricular tachycardia): Code(s): I47.1 - Supraventricular tachycardia Category: Medical Plan: As above. Brief episodes of tachycardia seen on remote monitoring and device checks. He has SVT/ST, brief episodes with reports of palpitations, longest recent was 5 minutes. He can feel rapid beats at times. Continue metoprolol. Ivabradine 2.5 mg bid ordered last visit however it is not on his list. There may have been issues with insurance approval. Plan Time spent on chart review, documentation, interview and assessment Orders: Orders Cardiac Rehab Today I20.89 - Other forms of angina pectoris, I50.20 - Unspecified systolic (congestive) heart failure Medications: New metoprolol succinate ER changing to 150mg bid 150 mg (1.5 x 100 mg) PO BID 270 tabs 3RF Coding Level of Care Code Est Pt Level 4 (47421) Add On Problem Visit Only Diagnoses Anterior wall myocardial infarction I21.09 S/P cardiac cath Z98.890 Ischemic cardiomyopathy I25.5 ICD (implantable cardioverter-defibrillator) in place Z95.810 HTN (hypertension) I10 SVT (supraventricular tachycardia) I47.1 Time Spent (min) 28
--- OUTSIDE RECORDS SUMMARY | 2025-04-11 15:49 | XMS_ITS | Data Portability ---
Author Organization [facility], [address] Address [address] [place] [address] Assessment No assessment recorded. Plan of Treatment Reminders Order Date Submit Date Provider Last Modified By Organization Details Last Modified Time Details Appointments None recorded. Lab SARS CoV 2 (COVID-19) Ag, QL, IA, upper respiratory specimen 2023 [email or web address] [facility], [address] [place] [address], [id number], 11:44:47 Referral None recorded. Procedures None recorded. Surgeries None recorded. Imaging None recorded. Medication Orders benzonatate 200 mg capsule 2023 024 [email or web address] [id number], [address] [place], [address], 11:44:45 fluticasone propionate 50 mcg/actuati on nasal spray,suspe nsion 2023 024 [email or web address] [id number], [address] [place], [address], 20:45:02 albuterol sulfate HFA 90 mcg/actuati on aerosol inhaler 2023 024 [email or web address] [id number], [address] [place], [address], 11:44:45 Patient TargetsNo targets recorded. Patient Instructions Encounter Date Encounter Id Patient Instructions Last Modified By Organization Details Last Modified Time 02/07/2024 [id number] dizziness: care instructions [email or web address] Not available 02/07/2024 11:44:45 Reason for Referral None Reported. Results Created Date Observation Date Name Description Value Unit Range Abnormal Flag Note LastModifiedBy Organization Detail LastModifiedTime 02/07/2002/07/2024 SARS CoV 2 (COVI D-19) Ag, QL, IA, upper respi rator y speci men Unknown Analyte negati ve Not Available [address], [address], 02/07/2024 11:24:53 Result Notes None recorded. Problems Name Problem SNOMED Code Status Onset Date Resolution Date Notes Provider Name and Address Organization Details Recorded Time Anxiety 17348659 Active KIEL Longoria - [facility] 02/07/2024 [...] Last Updated DateTime 172.72 cm 34.7 kg/m2 915870. 06 g 98 % 0 87 /min [...] ICD10 Code Diagnosis IMO Codes Diagnosis Note [id number] [address] [address] [facility] [address] [place] [phone] 03/11/2020 08:55:03 03/11/2020 12:15:46 [id number] [address] [facility] [address] [place] [address] 07/04/2019 10:50:44 07/04/2019 12:07:12 [id number] [address] [facility] [address] [facility] [address] 06/17/2021 14:04:23 06/17/2021 14:54:33 [id number] KIEL Martin [address] [place] [address] 02/07/2024 11:17:40 02/07/2024 11:36:21 Viral upper respiratory tract infection [id number] J06.9 You were seen today for body [...] readily available, use an alcohol-ba sed hand bath steward with at least 60% alcohol. Always wash [...] symptoms or concerns. Thank you for using [employer] today, please feel free to contact our [...] [place] Member ID Guarantor Name 02/07/2024 [facility] [id number] Chaz Hartmann [id number] Chaz Hartmann 02/07/2024 1 [facility] (O) [id number] Chaz Hartmann [id number] Chaz Hartmann 02/07/2024 [employer] Chaz Hartmann Notes Date Note Type Note Provider Name and Address Organization Details Recorded Time 02/07/2024 text/html 48 y/o male here with cough, congestion, some SOB, fatigue and dizziness for the past week. taking OTC cold meds with some improvement KIEL Martin [address] [place], [address], [place] - [facility] 02/07/2024 11:50:30
--- OUTSIDE RECORDS SUMMARY | 2025-04-11 15:49 | XMS_ITS | Clinical Summary ---
Author Organization [facility] Address [address] [facility] [address] [place] [phone] Phone Care Team Providers Care Vamp Liner Name Role Phone Juan Caedt NP Primary Care Provider + Social History [...] Not on file Insurance [facility] Care Teams Vamp Liner Relationship Specialty Start Date End Date Juan Cadet NP [facility] [address], [place] [id number] PCP - General Nurse Practitioner 04/14/23 Additional Source Comments The information contained in this document represents components of the legal health record. It is not the complete legal health record.[facility]
== END 2025-04-11 14:45 | disposition home or self-care (01) ==
LOC: HO.HCS 14:19
PROVIDERS: PCP Nurse Practitioner Family; Visit Provider Nurse Practitioner Family
DX: I21.09 ST elevation (STEMI) myocardial infarction involving other coronary artery of anterior wall (principal); Z98.890 Other specified postprocedural states; I25.5 Ischemic cardiomyopathy; Z95.810 Presence of automatic (implantable) cardiac defibrillator; I10 Essential (primary) hypertension; I47.10 Supraventricular tachycardia, unspecified
CPT/HCPCS: 99214; G2211